=== PATIENT | male | born 1945 | race African-American/Black ===

== ENCOUNTER 2019-07-08 15:57 | Inpatient (IN) | payer OTHER ==
--- NOTE | 2019-07-08 16:05 | PDOC ---
Rapid Medical Evaluation Time Seen by Provider: 07/08/19 16:00 Medical Evaluation: 07/08/19 16:02 Pt c/o: worsening ble weakness x 3 months worse to rle, has not seen medical for the complaints, no fall, no back pain, no incontinence, + diabetes, htn Pt on brief exam: ambulatory but with noted limp to right side and + foot drop, BUE 5/5 strength, Pt ordered for: head ct Pt to proceed to the ED Discharge Disposition - Diagnosis Leg weakness, bilateral - Discharge Dispostion Condition at time of disposition: Stable - Referrals - Patient Instructions - Post Discharge Activity
--- NOTE | 2019-07-08 17:27 | PDOC ---
Attending Attestation - Resident Resident Name: Jeannie Schneider - ED Attending Attestation I have performed the following: I have examined & evaluated the patient, The case was reviewed & discussed with the resident, I agree w/resident's findings & plan, Exceptions are as noted - HPI HPI: 07/08/19 17:27 Mr. Gilmore is a 73-year-old male with a history of hypertension, hyperlipidemia, diabetes who presents emergency department due to feeling off balance. He was seen by Dr. Alvares who ordered a CTA as an outpatient which revealed left internal carotid occlusion Patient states that he has felt off balance for some time. He had an admission to [facility], unable to tell us what studies he had a what his diagnosis was. He subsequently had another admission to [facility] (similarly, we are unable to get any details about that admission). Patient notes instability with ambulation 07/08/19 17:28 - Physicial Exam PE: 07/08/19 17:26 GENERAL: The patient is in no acute distress. ENT: Ears normal, nares patent, oropharynx clear without exudates. Moist mucous membranes. NECK: Normal range of motion, supple LUNGS: Breath sounds equal, clear to auscultation bilaterally. No wheezes, and no crackles. HEART:Regular rate and rhythm, normal S1 and S2 without murmur, rub or gallop. ABDOMEN: Soft, nontender, normoactive bowel sounds. EXTREMITIES: Normal range of motion, no edema. NEUROLOGICAL: Cranial nerves II through XII grossly intact. Normal speech. A& Ox3, CN grossly intact, normal speech, sensation to light touch intact and grossly symmetric. RLE with 2/5 strength at hip and knee, 1/5 at ankle. SKIN: Warm, Dry, normal turgor, no rashes or lesions noted. 07/11/19 08:23 - Medical Decision Making 07/08/19 17:26 73-year-old male presenting to the emergency department with a complaint of right lower extremity weakness which she states is intermittent. Patient had a recent CT of the neck which reveals complete right sided carotid occlusion Sent to the ER for stroke work-up given right lower extremity weakness We will do: CT head noncontrast Labs EKG Chest x-ray We will plan to admit Aspirin Signed out to the overnight attending NIH Stroke Scale - Last Known Well Date/Time & Onset Date Last Known Well: 06/23/19 Time Last Known Well: 12:00 - Initial Evaluation Level of consciousness: Alert Ask patient the month and their age: Answers both correctly Ask patient to open & close eyes; make fist and let go: Obeys both correctly Best gaze (horizontal eye movement): Normal Visual field testing: No visual field loss Facial paresis (Show teeth/raise eyebrows/close eyes tight): Normal symmetrical movement Motor Function: Left Arm: Normal Motor Function: Right Arm: Normal (extends arm 90 (or 45) degrees for 10 seconds without drift Motor Function: Left Leg: Drift Motor Function: Right Leg: Normal (extends leg 30 degrees for 5 seconds without drift) Limb Ataxia: Present in one limb Sensory(Use pinprick test arms,legs,trunk,face/side to side): Normal Best language (Describe picture, name items, read sentences): No Aphasia Dysarthria (read several words): Normal articulation Extinction and Inattention: No abnormality - Total Score NIH Stroke Scale Score: 2 tPA Exclusion checklist 3-4.5h - Time Elapsed Date last known well: 06/23/19 Time last known well: 12:00 Elaspsed time: 17 Day(s) and 20 Hour(s) and 24 Minutes - Thrombolytic Therapy Candidate Is patient eligible for thrombolytic therapy: No - Exclusion Criteria 3-4.5 hr SBP greater than 185 or DBP greater than 110mmHg despite tx: No Recent IC/spinal surgery,head trauma or stroke<3mos.: No Hx IC hemorrhage, IC neoplasm, AV malformation or aneurysm: No Active internal bleeding: No Blding diathesis(low plt ct, inc PTT,INR>1.7 or use of NOAC): No Symptoms suggest subarachnoid hemorrhage: No CT demonstrates multilobar infarct(>1/3 cerebral hemiphere): No Arterial puncture at noncompressible site in previous 7 days: No Blood glucose concentration less than 50mg/dL (2.7mmol/L): No - Relative Exclusion Criteria 3-4.5 hr Life expectancy <1 yr or severe co-morbid illness: No : No Patient/family refused: No Rapid improvement: No Stroke severity too mild: No Recent acute CO (w/in previous 3 months): No Seizure at onset with postictal residual neuro impairments: No Major surgery or serious trauma w/in previous 14 days: No Recent GI or hemorrhage (w/in previous 21 days): No - Add'l Relative Exclusion 3-4.5 hr Age > 80: No Hx of both diabetes AND prior ischemic stroke: No Taking an oral anticoagulant regardless of INR: No NIHSS >25: No - Ineligibility reason(s) Reasons No tPA given: Outside of window - delayed arrival
[2019-07-08] MEDS ORDERED: SODIUM CHLORIDE 1,000 ML IV SCH (17:30)
--- NOTE | 2019-07-08 18:00 | PDOC ---
History of Present Illness - General Chief Complaint: Weakness Stated Complaint: LEG PAIN Time Seen by Provider: 07/08/19 16:00 - History of Present Illness Initial Comments: John Gilmore is a 73yo with a PMH of IDDM, HTN, CAD (possible [place]?) who presents with right leg weakness that has been present for "a while." The leg weakness has been present at least for weeks, but he is not sure how long. He says that the leg weakness is always present, but some times are worse than others. He reports that he has been feeling "bad" for months. He went to [facility] in spring, where he was admitted for several days. However, he is not sure what he was admitted for or what was done at that time. He was also admitted at [facility] at some point in summer, also for "feeling bad," and he is also not sure what was done during the admission. Mr Gilmore currently denies any chest pain, difficulty breathing, leg pain or numbness. He reports that he has been having trouble remembering anything, also for "a while" but is not sure when this started. Past History - Past Medical History Allergies/Adverse Reactions: Allergies Allergy/AdvReac Type Severity Reaction Status Date / Time No Known Allergies Allergy Verified 07/08/19 16:06 Home Medications: Ambulatory Orders Amlodipine Besylate 10 mg PO DAILY 07/08/19 Aspirin [Aspirin EC] 1 tab PO DAILY 07/08/19 Atorvastatin Ca [Lipitor] 80 mg PO HS 07/08/19 Clopidogrel Bisulfate [Clopidogrel] 1 tab PO DAILY 07/08/19 Gabapentin 300 mg PO BID 07/08/19 Insulin Glargine,Hum.rec.anlog [Lantus Solostar PEN -] 20 units PO HS 07/08/19 Losartan Potassium 1 tab PO DAILY 07/08/19 Metformin HCl [Glucophage] 500 mg PO BID 07/08/19 Cardiac Disorders: Yes COPD: No Diabetes: Yes HTN: Yes Hypercholesterolemia: Yes - Psycho Social/Smoking Cessation Hx Smoking History: Never smoked Review of Systems - Review of Systems Comments:: General: No fevers, no chills, no weight or appetite change, no malaise HEENT: No changes in vision, no changes in hearing, no congestion, no sore throat CV: No chest pain, no palpitations, no LE edema Pulm: No SOB, no cough, no wheezing GI: No nausea or vomiting, no change in bowel habits, no melena : No frequency, no urgency, no dysuria Musc: No back pain, no joint swelling, no recent injury Skin: No rash, no lesions, no erythema Endo: No excessive thirst, no heat/cold intolerance Heme: No unusual bruising or bleeding, no swollen glands Neuro: No syncope, no numbness/tingling. +RLE weakness, see HPI Vasc: No claudication Psych: No recent change in mood, no SI or HI *Physical Exam - Vital Signs Last Vital Signs Temp Pulse Resp BP Pulse Ox 98 F 95 H 18 166/90 99 07/08/19 15:59 07/08/19 15:59 07/08/19 15:59 07/08/19 15:59 07/08/19 15:59 - Physical Exam General: Comfortable, no acute distress HEENT: Atraumatic, PERRL, EOMI, MMM, voice normal, normal neck ROM Cards: RRR, no murmur appreciated Pulm: Comfortable on room air, clear to auscultation bilaterally Abd: Soft, nontender, nondistended Ext: Atraumatic. No LE edema. ROM intact. Vasc: Extremities WWP.WWP Skin: Normal color, no rashes or lesions Neuro: A&Ox3, CN grossly intact, normal speech, sensation to light touch intact and grossly symmetric. RLE with 2/5 strength at hip and knee, 1/5 at ankle. Psych: Mood appropriate to situation ED Treatment Course - LABORATORY CBC & Chemistry Diagram: 07/08/19 17:25 07/08/19 17:25 - RADIOLOGY Radiology Studies Ordered: Category Date Time Status HEAD CT (STROKE) [CT] Stat CT Scan 07/08/19 17:22 Ordered Medical Decision Making - Medical Decision Making 07/08/19 17:54 John Gilmore is a 73yo with a PMH of IDDM, HTN, CAD (possible [place]?) who presents with right leg weakness that has been present for "a while." - RLE weakness appreciated on exam. Possible stroke, but symptoms are not new today - Stroke workup - Will most likely need evaluation for additional testing, possible MRI 07/08/19 18:37 - CT head completed, read pending - EKG w/ NSR, HR 77, normal axis, normal intervals. T-wave inversions and q- wave in V2; c/w previous infarct. 07/08/19 18:48 - CT head with multiple infarcts (left frontal, left parietal, left basal ganglia) of indeterminate age - Discussed w/ ED team. Given no upper extremity weakness, will CT lumbar spine to evaluate for spinal injury. 07/08/19 22:08 - Lumbar CT w/ L3-L4 right herniation - Sign out given to Dr Stearns. Will admit to Dr Muller' service on stroke floor Discussed with Steve Nino and Yaima Schneider PGY2 Discharge - Discharge Information Problems reviewed: Yes Clinical Impression/Diagnosis: Leg weakness, bilateral Condition: Stable - Admission Yes - Follow up/Referral - Patient Discharge Instructions - Post Discharge Activity
[2019-07-08 18:44] LABS: BASO % 0.7 % (0-2.0); EOS % 3.8 % (0-4.5); HEMATOCRIT 40.7 % (35.4-49); HEMOGLOBIN 13.7 GM/dL (11.7-16.9); LYMPH % 34.2 % (8-40); MCHC 33.7 g/dl (32.0-35.9); MEAN CELL VOLUME 80.2 fl (80-96); MONO % 6.3 % (3.8-10.2); PLATELET COUNT 229 K/MM3 (134-434); RBC 5.07 M/mm3 (4.00-5.60); RDW 14.4 % (11.9-15.9); WHITE BLOOD COUNT 6.3 K/mm3 (4.0-10.0)
[2019-07-08 18:59] LABS: INR 0.93 (0.83-1.09)
[2019-07-08 19:01] LABS: ACTIVATED PTT 36.1 SECONDS (25.2-36.5)
[2019-07-08 19:16] LABS: ALBUMIN 3.8 g/dl (3.4-5.0); BILIRUBIN,TOTAL 0.5 mg/dL (0.2-1); BLOOD UREA NITROGEN 12.9 mg/dL (7-18); CALCIUM 9.4 mg/dL (8.5-10.1); CREATININE 0.9 mg/dL (0.55-1.3); POTASSIUM 3.8 mmol/L (3.5-5.1); TOT PROT 7.4 g/dl (6.4-8.2)
--- NOTE | 2019-07-08 23:36 | HP ---
CHIEF COMPLAINT: RLE numbness/weakness PCP: denies HISTORY OF PRESENT ILLNESS: This is a 73 y/o M with a PMHx HTN, HLD, IDDM, CAD ( possible CT? given pt on ASA/Plavix), and CTA (07/04/19 showing Lt ICA occlusion ), presenting with RLE weakness, numbness, tingling X 5-7 days. Pt is unreliable historian given hx of short term memory loss per patient. He has been having memory difficulties like losing his keys, or forgetting if he has a PCP, and how his diet is. He lives with his . He has been having trouble ambulating and states he has to "drag his leg sometimes". Pt also c/o anosmia for an undetermined amt of time that he has not seen a physician for. Pt states he has not had his eyes/feet checked in the past. He denies cp, sob, PATINO, fever, chills, n/v, bowel/bladder complaints, poor appetite. ER course was notable for: (1) CT head- likely negative for acute infarcts with suspicion for chronic infarcts in Lt cerebrum (2) CT lumbar spine- L3-L4 foraminal disk herniation (3) Glu- 196, trop 0.09, EKG NSR normal QTC Social History: Smoking: denies Alcohol: denies Drugs: denies Allergies No Known Allergies Allergy (Verified 07/08/19 16:06) HOME MEDICATIONS: Home Medications Medication Instructions Recorded Amlodipine Besylate 10 mg PO DAILY 07/08/19 Aspirin [Aspirin EC] 1 tab PO DAILY 07/08/19 Atorvastatin Ca [Lipitor] 80 mg PO HS 07/08/19 Clopidogrel Bisulfate [Clopidogrel] 1 tab PO DAILY 07/08/19 Gabapentin 300 mg PO BID 07/08/19 Insulin Glargine,Hum.rec.anlog 20 units PO HS 07/08/19 [Lantus Solostar PEN -] Losartan Potassium 1 tab PO DAILY 07/08/19 Metformin HCl [Glucophage] 500 mg PO BID 07/08/19 REVIEW OF SYSTEMS negative except in HPI PHYSICAL EXAMINATION Vital Signs - 24 hr 07/08/19 07/08/19 07/08/19 15:59 19:07 23:06 Temperature 98 F 97.2 F L Pulse Rate 95 H Pulse Rate [ 68 68 Radial] Respiratory 18 18 Rate Blood Pressure 166/90 Blood Pressure 163/92 180/97 H [Right Arm] O2 Sat by Pulse 99 95 97 Oximetry (%) GENERAL: Awake, AO X 2 (self and place but not time) HEAD: Normal with no signs of trauma. EYES: Pupils equal, round and reactive to light, extraocular movements intact, sclera anicteric, conjunctiva clear. No lid lag. NECK: No carotid bruit appreciated LUNGS: Breath sounds equal, clear to auscultation bilaterally. No wheezes, and no crackles. No accessory muscle use. HEART: Regular rate and rhythm, normal S1 and S2 without murmur, rub or gallop. ABDOMEN: Soft, nontender, not distended, normoactive bowel sounds, no guarding, no rebound, no masses. MUSCULOSKELETAL: Normal ROM in upper extremities with sensation intact, LLE normal sensation and ROM 5/5, RLE 4/5 strength above knee and 3/5 below knee, reduced sensation of RLE below knee, Dorsiflexion and plantarflexion reduced 3/ 5 on RLE. Straight leg raise negative UPPER EXTREMITIES: 2+ pulses, warm, well-perfused. No cyanosis. No clubbing. No peripheral edema. LOWER EXTREMITIES: 1+ pulses b/l, cool to touch, No calf tenderness. No peripheral edema. Areflexia on RLE patella, LLE 2+ reflexes NEUROLOGICAL: Cranial nerves II-XII intact. Normal speech. Normal gait. PSYCHIATRIC: memory difficulty SKIN: Warm, dry, normal turgor, no rashes or lesions noted Laboratory Results - last 24 hr ASSESSMENT/PLAN: This is a 73 y/o M with a PMHx HTN, HLD, IDDM, CAD (possible CT? given pt on ASA /Plavix), and CTA (07/04/19 showing Lt ICA occlusion), presenting with RLE weakness, numbness, tingling X 5-7 days. #R/O CVA - CT head showing ? chronic/subacute Left frontal and left parietal cortical/ subcortical infarcts were noted of indeterminate age on the basis of exam. with small indeterminate left basal ganglia infarct - unknown if related to CTA finding of LT ICA occlusion at this time - CT of lumbar spine- L3/L4 disc herniation- likely cause of areflexia of patella and lower extremity symptoms. - Neuro consulted (Dr. Corbett) - Dr. Francesconi consulted as he told pt to come to ED after seeing results of CTA. - baseline memory difficulties per patient - ordered B12/Folate/RPR/TSH to eval for early onset dementia - PT eval - speech and swallow eval npo until then - fall risk/aspiration/seizure precautions - c/w ASA 81mg, crestor 20HS, plavix #Tropinemia - probably false positive from cerebral infarcts - Pt has trop 0.09 - rpt trop 0.09 - EKG w/ NSR, HR 77, normal axis, normal intervals. #HTN - BP 180/97 in ED, - c/w losartan, norvasc, ? why pt not on BB given hx of CT 10yrs ago - would suggest him be on metoprolol but he follows up with cardio so will await recommendations. IDDM - Hold oral antihyperglycemics at this time - glu- 196 today and pt did not seem educated on proper diabetic diet - dietary consult - ISS TIDAC - may be related to diabetic neuropathy, pt has not had appropriate o/p care - A1C - Gabapentin 300 BID for neuropathy #HLD - ASCVD risk >7.5% -> started crestor 20HS - call placed to pharmacy confirming he hasnt been taking 80mg lipitor HS - lipid panel LDL-76 Visit type - Emergency Visit Emergency Visit: Yes ED Registration Date: 07/08/19 Care time: The patient presented to the Emergency Department on the above date and was hospitalized for further evaluation of their emergent condition. - New Patient This patient is new to me today: Yes Date on this admission: 07/09/19 - Critical Care Critical Care patient: No ATTENDING PHYSICIAN STATEMENT I saw and evaluated the patient. I reviewed the resident's note and discussed the case with the resident. I agree with the resident's findings and plan as documented. SUBJECTIVE: OBJECTIVE: ASSESSMENT AND PLAN:
--- NOTE | 2019-07-08 23:51 | PN ---
Teaching Attending Note Name of Resident: Darin Marie ATTENDING PHYSICIAN STATEMENT I saw and evaluated the patient. I reviewed the resident's note and discussed the case with the resident. I agree with the resident's findings and plan as documented. SUBJECTIVE: 73yo with a PMH of IDDM, HTN, CAD, presents complaining of right leg weakness and numbness for about 2 weeks. Patient reports that he was still able to ambulate normally. Denied any headaches, dizziness, or other weakness anywhere else on his body.He reports recent admission at [facility].Patient reports history of arthritis in his right and left lower extremities. He states that his symptoms may be secondary to his arthritis. OBJECTIVE: Last Vital Signs Temp Pulse Resp BP Pulse Ox 97.2 F L 68 18 180/97 H 97 07/08/19 23:06 07/08/19 23:06 07/08/19 22:42 07/08/19 23:06 07/08/19 23:06 GENERAL: Well developed, well nourished. Awake and alert. No acute distress. HEENT: Normocephalic, atraumatic. PERRLA, EOMI. No conjunctival pallor. Sclera are non- icteric. Moist mucous membranes. Oropharynx is clear. NECK: Supple. Full ROM. No JVD. Carotid pulses 2+ and symmetric, without bruits. No thyromegaly. No lymphadenopathy. CARDIOVASCULAR: Regular rate and rhythm. No murmurs, rubs, or gallops. Distal pulses are 2+ and symmetric. PULMONARY: No evidence of respiratory distress. Lungs clear to auscultation bilaterally. No wheezing, rales or rhonchi. ABDOMINAL: Soft. Non-tender. Non-distended. No rebound or guarding. No organomegaly. Normoactive bowel sounds. MUSCULOSKELETAL Normal range of motion at all joints. No bony deformities or tenderness. No CVA tenderness. EXTREMITIES: No cyanosis. No clubbing. No edema. No calf tenderness. SKIN: Warm and dry. Normal capillary refill. No rashes. No jaundice. NEUROLOGICAL: Alert, awake, appropriate. Cranial nerves 2-12 intact. No deficits to light touch and temperature in face, upper extremities and lower extremities. No motor deficits in the in face, upper extremities and lower extremities. Normoreflexic in the upper and lower extremities. Normal speech. Diminished sensation to right leg PSYCHIATRIC: Cooperative. Good eye contact. Appropriate mood and affect. Abnormal Lab Results 07/08/19 17:25 Anion Gap 5 L Random Glucose 196 H AST 14 L Alkaline Phosphatase 132 H CK-MB (CK-2) 4.9 H Troponin I 0.09 H HDL Cholesterol [address] was reviewed. Left frontal and left parietal cortical/subcortical infarcts were noted of indeterminate age on the basis of exam. There was also a small indeterminate left basal ganglia infarct. CT of his lumbar spine was performed and showed right L3-L4 foraminal disc herniation, multilevel degenerative disc and facet joint changes, partial imaging of a nonspecific subcutaneous nodule within left paramedian aspect of lower thoracic region at T10 level ASSESSMENT AND PLAN: Right lower extremity weakness and diminished sensationshould rule out CVA. Differential diagnosis includes osteoarthritis and right knee as well as possible radiculopathy from L3-L4 foraminal disc herniation as evidenced on CT of lumbar spine Admit to telemetry Neurology evaluation Neurochecks every 4 hours Bedrest and fall precautions Aspirin Statin N.p.o. Physical therapy evaluation Speech and swallow eval Heparin subcu for DVT prophylaxis
[2019-07-09] MEDS ORDERED: amLODIPine BESYLATE 10 MG TABLET (FP) PO ONE (00:41)
[2019-07-09] MEDS ORDERED: amLODIPine BESYLATE 5 MG TABLET (FP) ONE (02:56)
[2019-07-09] MEDS ORDERED: chlordiazePOXIDE HCL 25 MG CAPSULE PO PRN (03:30)
[2019-07-09] MEDS ORDERED: LOSARTAN POTASSIUM 50 MG TABLET (FP) PO ONE (05:46)
[2019-07-09] MEDS: INSULIN SLIDING SCALE (NOVOLOG) 1 VIAL SQ SCH ×3 (07:01→18:07)
[2019-07-09 07:42] LABS: ALBUMIN 3.6 g/dl (3.4-5.0); BILIRUBIN,TOTAL 0.7 mg/dL (0.2-1); CALCIUM 8.9 mg/dL (8.5-10.1); CREATININE 0.9 mg/dL (0.55-1.3); MAGNESIUM 2.1 mg/dL (1.8-2.4); PHOSPHOROUS 3.2 mg/dL (2.5-4.9); POTASSIUM 3.5 mmol/L (3.5-5.1); TOT PROT 6.9 g/dl (6.4-8.2)
[2019-07-09] MEDS ORDERED: PT OWN MED DRAWER 7, Y5N ONE (09:56)
[2019-07-09] MEDS: CLOPIDOGREL BISULFATE 75 MG TABLET (FP) PO SCH (09:57)
[2019-07-09] MEDS: ENOXAPARIN NA (PORCINE) 40 MG/0.4 ML DISP.SYRIN SQ SCH (09:57)
[2019-07-09] MEDS: ASPIRIN COATED 81 MG TABLET.EC PO SCH (09:57)
[2019-07-09] MEDS: amLODIPine BESYLATE 10 MG TABLET (FP) PO SCH (09:57)
[2019-07-09] MEDS: GABAPENTIN 300 MG CAPSULE (FP) PO SCH ×2 (09:57→23:06)
[2019-07-09] MEDS ORDERED: PATIENT'S OWN MEDICATION (NON-FORMULARY) (Losartan Potassium [Losartan Potassium] 1 TAB) PO SCH (10:00)
[2019-07-09] MEDS ORDERED: ASPIRIN COATED 81 MG TABLET.EC PO SCH (10:00)
[2019-07-09] MEDS ORDERED: amLODIPine BESYLATE 10 MG TABLET (FP) PO SCH (10:00)
--- NOTE | 2019-07-09 10:41 | EKG ---
Test Reason : Blood Pressure : / mmHG Vent. Rate : 077 BPM Atrial Rate : 077 BPM P-R Int : 192 ms QRS Dur : 088 ms QT Int : 392 ms P-R-T Axes : 068 000 042 degrees QTc Int : 443 ms NORMAL SINUS RHYTHM SEPTAL INFARCT , AGE UNDETERMINED ABNORMAL ECG NO PREVIOUS ECGS AVAILABLE Confirmed by JOHN JEFFERS MD ([id number]) on 07/09/2019 10:40:57 AM Referred By: Confirmed By:JOHN JEFFERS MD
--- NOTE | 2019-07-09 11:10 | CONSULT ---
Admitting History and Physical - Primary Care Physician PCP: Dustin Joe - Admission History of Present Illness: Per EMR- 73 y/o M with a PMHx HTN, HLD, IDDM, CAD (possible [place]? given pt on ASA/Plavix) , and CTA (07/04/19 showing Lt ICA occlusion), presenting with RLE weakness, numbness, tingling X 5-7 days. Pt is unreliable historian given hx of short term memory loss per patient. He has been having memory difficulties like losing his keys, or forgetting if he has a PCP, and how his diet is. He lives with his . He has been having trouble ambulating and states he has to "drag his leg sometimes". Pt also c/o anosmia for an undetermined amt of time that he has not seen a physician for. Pt states he has not had his eyes/feet checked in the past. He denies cp, sob, PATINO, fever, chills, n/v, bowel/bladder complaints, poor appetite. History Source: Patient Limitations to Obtaining History: No Limitations - Smoking History Smoking history: Never smoked History - Admission Reason For Visit: WEAKENSS OF BOTH LOWER EXTREMITIES - Diagnostics X-ray: Report Reviewed CT Scan: Report Reviewed (- CT head showing ? chronic/subacute Left frontal and left parietal cortical/subcortical infarcts were noted of indeterminate age on the basis of exam. with small indeterminate left basal ganglia infarct - unknown if related to CTA finding of LT ICA occlusion at this time - CT of lumbar spine- L3/L4 disc herniation- likely cause of areflexia of patella and lower extremity symptoms) Other: Report Reviewed (carotid u/s noted) - General Mental Status: Alert and Oriented, Awake and Alert, Able to Follow Commands Attention: Intact Ability to Follow Directions: Good Head/Neck Control: WFL - Hearing Hearing: Functional Speech Evaluation - Communication Primary Language: PAKISTANI Communication: Yes: Within Normal Limits Oral Expression Ability: Yes: No Impairment - Speech Production Able to Make Needs Known: Yes: WNL Intelligibility: Yes: WNL - Speech Characteristics Voice Loudness: Normal Voice Pitch: Yes: Normal Speech Pattern: Normal Speech Clarity: < 100% Nasal Resonance: Normal Articulation: Yes: Precise - Language/Auditory Comprehension Follows: Yes: 2 Stage Simple Commands Observation: Able to respond to yes/no queries: Yes, Comprehends Conversational Speech: Yes - Language/Verbal Expression Able to Respond to Simple Queries: Yes: WNL Able to Communicate Wants and Needs: Yes: WNL Functional Communication Status: Yes: WNL - Swallow Evaluation/Bedside Assessment Current Nutritional Intake: NPO Oral Secretions: Yes: WFL Dentition: Yes: Adequate Facial Symmetry at Rest: Facial Droop Right (slight?) Facial Symmetry on Retraction: Symmetrical Facial Movement: Controlled Sensation: Normal Against Resistance Opening: Normal Against Resistance Closing: Normal Pucker Lips: Normal Smile: Normal Lingual Movement: Normal, Symmetric Lingual Speed of Movement: Normal Lingual Movement Strgth Against Opposition: Normal Lingual Movement Characteristics: Normal Velopharyngeal Movement: Normal Laryngeal Elevation: WFL Laryngeal Movement: Able to Palpate Rate of Intake: WFL Bolus Size: WFL Labial Seal: WFL Chewing: WFL Oral Prep Time: WFL A-P Transit: WFL Timing of Swallow: WFL Coughing/Throat Clear: No Change in Voice: No Recommendations - Speech Evaluation, Impression/Plan Impression: Sppech,language, swallowing intact - Dysphagia Impressions/Plan Swallowing Skills: WF Dysphagia Impressions: No Impairment *Silent aspiration: cannot be R/O at bedside Recommendations: Neuro Consult (pending) - Recommendations Diet Consistency: Regular Medication Administration: Whole with water Liquids: Thin Liquids
[2019-07-09 11:44] VITALS: BMI 28.7
--- NOTE | 2019-07-09 12:16 | CON.CARD ---
Consult Consult Specialty:: Cardiology Referred by:: Medicine Reason for Consultation:: dizziness - History of Present Illness Chief Complaint: leg pain, weakness, dizziness History of Present Illness: 73M h/o HTN, HLD, DM, CAD p/w dizziness, weakness in RLE, feeling unsteady. Sees Dr. Alvares for cardio, had outpatient CTA with lt ICA occlusion last week, then endorsed dizziness, off balance feeling, weakness. No chest pain, palps, dyspnea, edema, syncope. - Smoking History Smoking history: Never smoked Home Medications - Allergies Allergies/Adverse Reactions: Allergies Allergy/AdvReac Type Severity Reaction Status Date / Time No Known Allergies Allergy Verified 07/08/19 16:06 - Home Medications Home Medications: Ambulatory Orders Amlodipine Besylate 10 mg PO DAILY 07/08/19 Aspirin [Aspirin EC] 1 tab PO DAILY 07/08/19 Atorvastatin Ca [Lipitor] 80 mg PO HS 07/08/19 Clopidogrel Bisulfate [Clopidogrel] 1 tab PO DAILY 07/08/19 Gabapentin 300 mg PO BID 07/08/19 Insulin Glargine,Hum.rec.anlog [Lantus Solostar PEN -] 20 units PO HS 07/08/19 Losartan Potassium 1 tab PO DAILY 07/08/19 Metformin HCl [Glucophage] 500 mg PO BID 07/08/19 Family Medical History Family History: Unremarkable Review of Systems - Review of Systems Constitutional: reports: Weakness Eyes: reports: No Symptoms HENT: reports: No Symptoms Neck: reports: No Symptoms Cardiovascular: reports: No Symptoms Respiratory: reports: No Symptoms Gastrointestinal: reports: No Symptoms Genitourinary: reports: No Symptoms Musculoskeletal: reports: No Symptoms Integumentary: reports: No Symptoms Neurological: reports: No Symptoms Endocrine: reports: No Symptoms Hematology/Lymphatic: reports: No Symptoms Psychiatric: reports: No Symptoms Vital Signs: Vital Signs Temperature 97.9 F 07/09/19 06:30 Pulse Rate 68 07/09/19 06:30 Respiratory Rate 20 07/09/19 06:30 Blood Pressure 155/97 07/09/19 06:30 O2 Sat by Pulse Oximetry (%) 99 07/09/19 05:19 Constitutional: Yes: No Distress, Calm Eyes: Yes: Conjunctiva Clear, EOM Intact HENT: Yes: Atraumatic, Normocephalic Neck: Yes: Supple, Trachea Midline Respiratory: Yes: Regular, CTA Bilaterally Gastrointestinal: Yes: Normal Bowel Sounds, Soft Cardiovascular: Yes: Regular Rate and Rhythm JVD: No Heart Sounds: Yes: S1, S2 Extremities: No: Cold Edema: No Integumentary: No: Jaundice Neurological: Yes: Alert, Oriented Psychiatric: No: Agitated - Other Data Labs, Other Data: CBC, BMP 07/08/19 17:25 07/09/19 06:00 INR, PTT INR 0.93 (0.83-1.09) 07/08/19 17:25 Troponin, BNP 07/08/19 12 17:25 01:45 Troponin I 0.09 H 0.09 H Troponin, BNP 07/08/19 07/09/19 17:25 01:45 Troponin I 0.09 H 0.09 H Assessment/Plan EKG: sinus, nl intervals, no ischemic changes CTA neck: complete occlusion of L ICA dizziness, weakness, RLE pain - neuro eval pending - no acute stroke on CT head, +chronic infarcts - echo pending carotid stenosis - occluded LICA on CTA neck last week - +chronic infarcts on CT head, neuro consult pending - cont aspirin, plavix, statin elevated trop - indeterminate range, flat trend. no ischemic change on EKG, unlikely ACS - echo pending HTN - not well controlled, per patient this is chronic - monitor pt after receiving home meds, likely will need additional agent DM - manage per primary HLD - cont statin
--- NOTE | 2019-07-09 14:46 | ECHO ---
Name: CHAMBERS, VERGIL Exam:Adult Echocardiogram Study Date: 07/09/2019 10:38 AM Age: 73 yrs Height: 68 in Weight: 185 lb BSA: 2.0 m2 MMode/2D Measurements & Calculations IVSd: 1.5 cm Ao root diam: 3.0 cm LVIDd: 3.1 cm LA dimension: 2.7 cm LVIDs: 2.3 cm LVPWd: 1.2 cm LVPWs: 1.5 cm EDV(Teich): 38.3 ml ESV(Teich): 18.9 ml LVOT diam: 1.8 cm Doppler Measurements & Calculations MV E max shady: 52.8 cm/sec Ao V2 max: 116.7 cm/sec MV A max shady: 80.5 cm/sec Ao max P.5 mmHg MV E/A: 0.66 MV dec time: 0.19 sec FELICITAS(V,D): 2.4 cm2 LV V1 max P.0 mmHg TR max shady: 228.5 cm/sec LV V1 max: 112.0 cm/sec TR max P.1 mmHg PA V2 max: 97.1 cm/sec Med Peak E' Shady: 4.3 cm/sec PA max P.8 mmHg Med E/e': 12.3 Lat Peak E' Shady: 5.2 cm/sec Lat E/e': 10.2 Procedure A two-dimensional transthoracic echocardiogram with color flow and Doppler was performed. Left Ventricle There is moderate concentric left ventricular hypertrophy. The left ventricular ejection fraction is normal. E/A reversal consistent with but not diagnostic of poor LV compliance. The left ventricular wall juana on is normal. Right Ventricle The right ventricle is not well visualized. Atria Normal left and right atrial size and function. Mitral Valve There is mild mitral valve thickening. There is no mitral valve stenosis. There is trace to mild mitr al regurgitation. Tricuspid Valve There is mild tricuspid valve thickening. There is no tricuspid stenosis. There is mild to moderate t ricuspid regurgitation. Right ventricular systolic pressure is normal. Aortic Valve The aortic valve is normal in structure and function. No hemodynamically significant valvular aortic stenosis. No aortic regurgitation is present. Pulmonic Valve The pulmonic valve is not well visualized. Great Vessels The aortic root is normal size. Pericardium/Pleura There is a mild pericardial effusion. Interpretation Summary There is moderate concentric left ventricular hypertrophy. The left ventricular ejection fraction is normal. The left ventricular wall motion is normal. E/A reversal consistent with but not diagnostic of poor LV compliance The right ventricle is not well visualized. There is trace to mild mitral regurgitation. There is a mild pericardial effusion. There is mild to moderate tricuspid regurgitation. Right ventricular systolic pressure is normal. MD Donavan Lopez 07/09/2019 02:45 PM
--- NOTE | 2019-07-09 18:07 | PN ---
Progress Note (short form) - Note Progress Note: Hospitalist Medicine W/ complaint recent RLE weakness which brought him in. States that he "knows that he had a stroke." Vitals 07/09/19 14:26 Temperature 97.8 F Pulse Rate 70 Respiratory 20 Rate Blood Pressure 151/87 Physical Exam general: pleasant. in NAD HEENT: NCAT neck: supple cardio: S1, S2, RRR. no r/m/g pulm: CTA b/l abdomen: nontender, nondistended, obese. LE: 2+ pulses. 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 2/5 motor strength RLE. 5/5 LLE. sensation intact. + mild pronator drift UE. no dysmetria Laboratory Tests 07/08/19 07/09/19 07/09/19 17:25 06:00 06:33 WBC 6.3 RBC 5.07 Hgb 13.7 Hct 40.7 MCV 80.2 MCH 27.0 MCHC 33.7 RDW 14.4 Plt Count 229 Sodium 138 Potassium 3.5 Chloride 104 Carbon Dioxide 28 Anion Gap 7 L BUN 11.0 Creatinine 0.9 POC Glucometer 206 Random Glucose 212 H Vitamin B12 1043 H Serum Folate 9 TSH 5.02 H Free T4 1.03 07/09/19 07/09/19 12:42 18:05 WBC RBC Hgb Hct MCV MCH MCHC RDW Plt Count Sodium Potassium Chloride Carbon Dioxide Anion Gap BUN Creatinine POC Glucometer 232 282 Random Glucose Vitamin B12 Serum Folate TSH Free T4 Imaging 07/08/19: Head CT: left frontal and parietal cortical/ subcortical infarcts are noted of indeterminate age on basis of current exam. also a small indeterminate left basal ganglia infarct. 07/08/19: Lumbar CT: right L3-L4 foraminal disc herniation. multilevel degenerative disc and facet joint changes. there is partial imaging of a nonspecific subcutaneous nodule in the left paramedian aspect of the lower thoracic region at the T10 level. 07/09/19: Carotid sono: moderate atherosclerotic dz with abnormal flow with the proximal L ICA which is consistent with the distal occlusion which have been identified on a recent CTA examination not new finding 07/09/19: ECHO: moderate concentric LVH, LVEF normal, trace to mild MR, mild pericardial effusion, mild to mod TR, RVSP normal ASSESSMENT/PLAN: This is a 73 y/o M with a PMHx HTN, HLD, IDDM, CAD (possible OR? given pt on ASA /Plavix), and CTA (07/04/19 showing Lt ICA occlusion), presenting with RLE weakness, numbness, tingling X 5-7 days. #r/o CVA -ECHO noted -carotid doppler result noted; not new finding -c/w plavix, asa, crestor -neuro consult: Dr. Corbett -PT eval #Tropinemia -asymptomatic, flat trend -Cardio: Dr. Guzman -EKG w/ NSR, HR 77, nl axis, nl intervals #HTN - c/w losartan, norvasc for now -will likely need additional agent IDDM - Hold oral antihyperglycemics at this time - ISS TIDAC - f/u A1C - c/w Gabapentin 300 BID for neuropathy #HLD - c/w crestor #F/E/N no need for IVF at this time continue to follow lytes diabetic/na controlled diet #PPX DVT: on lovenox #Dispo admitted to tele <Kristina Ojeda - Last Filed: 07/09/19 18:28> - Note Progress Note: Seen and examined; please see resident note for further historical information. I personally verified all [place] historical information and exam findings. Personally interpreted all imaging and diagnostics and reviewed appropriate consults. I reviewed all labs and vital signs as per resident note and EMR as documented. I agree with the above assessment and plan unless supplemented by myself in the following. Seen and examined, overall the patient remains stable. 10 item review of systems completed and is negative aside from the history of present illness.Carotid ultrasound preliminarily shows occlusion, but this was known prior. Will discuss with neuro and vascular if needed. We will continue to hold anti-hyperglycemics as well as continue with gabapentin for the diabetic neuropathy which also could be contributing to part of his presenting symptoms. Furthermore, we will monitor the patient on the floor on the medicine service with aspirin, statin, and keep him on DVT prophylaxis with Lovenox VS, labs, imaging reviewed NAD, AAO, resting comfortably in bed. RRR s1/2 no mgr Normal muscle tone, moves all 5 extremities with normal apparent strength Neck is supple, trachea midline, no masoud LN Lungs CTAB with sym expansion NT ND +BS no masoud organomegaly CN2-12 wnl; no FND NC AT EOMI PERRLA Normal mood, appropriate behavior, euthymic affect No skin breakdown or rashes noted A/P: Patient presents for right lower extremity weakness is alongside parasthesias and was admitted overnight to r/o CVA. Will also consider myelopathy, OA, etc. Problems include: Right lower extremity weakness and diminished sensationshould rule out CVA. Differential diagnosis includes osteoarthritis and right knee as well as possible radiculopathy from L3-L4 foraminal disc herniation as evidenced on CT of lumbar spine Admit to telemetry Neurology evaluation Neurochecks every 4 hours Bedrest and fall precautions Aspirin Statin N.p.o. Physical therapy evaluation Speech and swallow eval Heparin subcu for DVT prophylaxis <Dustin Joe - Last Filed: 07/11/19 12:55>
--- NOTE | 2019-07-09 19:05 | CONSULT ---
Consult - text type - Consultation Consultation Note: NEUROLOGY CONSULTATION is greatly appreciated: Events and neurimaging reviewed. Patient examined. 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 Maintained on: Amlodipine; Aspirin 81; Atorvastatin; Clopidogrel; Gabapentin 300 mg PO BID; insulins; Losartan; and Metformin 500 mg PO BID 07/08/19. Recent evaluation of TIA/ CVA apparently revealed proximal Left ICA occlusion/ stenosis. Chronic, episodic LBP with occ radiation into left buttock. Chronic "burning" over left lateral thigh. "Just before Thanksgiving" patient describes gradual onset of weakness in the right leg, especially distally. Increasing gait dysfunction. CT of brain (C-) reviewed: Scattered small infarcts in the left MCA territory CT of LS spine: Moderate DJD with bulging disk at L5S1. OBI: No bruits. Cor Reg. NEURO: Awake, alert. MS/Speech: Normal CN II-XII: Full guevara and EOM's. Mild right lower facial asymmetry. Gag normal. Motor: Min Right drift. Sl decreased NBA. R Hip flexion 4-/5; R knee extension 4+/5; R ankle DF/Inv/ ever 2/5. Ankle PF 4/5. Normal reflexes including AJ's. Toes downgoing. Coord: No FTN dystaxia Sensory: Normal Gait: Dificulty lifing right leg off the bed. Stands with assistance. Right circumduction. IMP: Left cerebral dysfunction especially involving the Anterior Cerebral Artery distribution (But could also be MCA involving the internal capsule.) Most likely on a vascular basis (CVA's). Cannot exclude some contribution from Right L5 radiculopathy. Left Meralgia paresthetica. SUGGEST: MRI and MR Angio of the intracranial circulation. Physiatry consultaion and PT as directed. Cardiology consultation (telemetry, echocardiogram) to eval for source of cardiogenic embolism (as this would require full anticoagulation). Review recent history, eval and imaging. Continue plavix and ASA (81) for now. Thank you very much, Koko Corbett MD
[2019-07-09] MEDS ORDERED: ROSUVASTATIN CA 20 MG TABLET (FP) PO SCH (22:00)
[2019-07-09] MEDS: ROSUVASTATIN CA 10 MG TABLET (FP) PO SCH (23:06)
[2019-07-10] MEDS: INSULIN SLIDING SCALE (NOVOLOG) 1 VIAL SQ SCH ×3 (06:53→18:28)
[2019-07-10 07:24] LABS: BASO % 0.6 % (0-2.0); EOS % 4.1 % (0-4.5); HEMATOCRIT 39.6 % (35.4-49); HEMOGLOBIN 13.3 GM/dL (11.7-16.9); MCH 26.7 pg (25.7-33.7); MCHC 33.6 g/dl (32.0-35.9); MEAN CELL VOLUME 79.5 fl (80-96); MONO % 7.7 % (3.8-10.2); NEUT % 52.6 % (42.8-82.8); PLATELET COUNT 212 K/MM3 (134-434); RBC 4.98 M/mm3 (4.00-5.60); RDW 14.1 % (11.9-15.9); WHITE BLOOD COUNT 5.6 K/mm3 (4.0-10.0)
[2019-07-10 07:42] LABS: BLOOD UREA NITROGEN 10.8 mg/dL (7-18); CALCIUM 9.4 mg/dL (8.5-10.1); CREATININE 0.9 mg/dL (0.55-1.3); MAGNESIUM 2.2 mg/dL (1.8-2.4); PHOSPHOROUS 3.5 mg/dL (2.5-4.9); POTASSIUM 3.8 mmol/L (3.5-5.1)
[2019-07-10] MEDS ORDERED: LOSARTAN POTASSIUM 50 MG TABLET (FP) PO SCH (10:00)
[2019-07-10] MEDS: GABAPENTIN 300 MG CAPSULE (FP) PO SCH ×2 (10:22→21:13)
[2019-07-10] MEDS: ASPIRIN COATED 81 MG TABLET.EC PO SCH (10:23)
[2019-07-10] MEDS: ENOXAPARIN NA (PORCINE) 40 MG/0.4 ML DISP.SYRIN SQ SCH (10:24)
[2019-07-10] MEDS: amLODIPine BESYLATE 10 MG TABLET (FP) PO SCH (10:24)
[2019-07-10] MEDS: CLOPIDOGREL BISULFATE 75 MG TABLET (FP) PO SCH (10:25)
--- NOTE | 2019-07-10 10:32 | PN ---
Progress Note (short form) - Note Progress Note: s: no cp sob palps dizzy Current Medications Generic Name Dose Route Start Last Admin Trade Name Jessica PRN Reason Stop Dose Admin Amlodipine Besylate 10 mg 07/09/19 10:00 07/10/19 10:24 Norvasc - PO 10 mg DAILY TAMIKO Administration Aspirin 81 mg 07/09/19 10:00 07/10/19 10:23 Ecotrin - PO 81 mg DAILY TAMIKO Administration Clopidogrel Bisulfate 75 mg 07/09/19 10:00 07/10/19 10:25 Plavix - PO 75 mg DAILY TAMIKO Administration Enoxaparin Sodium 40 mg 07/09/19 10:00 07/10/19 10:24 Lovenox - SQ 40 mg DAILY TAMIKO Administration Gabapentin 300 mg 07/09/19 10:00 07/10/19 10:22 Neurontin - PO 300 mg BID TAMIKO Administration Insulin Aspart 1 vial 07/09/19 07:00 07/10/19 06:53 Novolog Vial Sliding Scale - SQ 6 units TIDAC TAMIKO Administration Protocol Losartan Potassium 100 mg 07/10/19 10:00 07/10/19 10:24 Cozaar - PO 100 mg DAILY TAMIKO Administration Rosuvastatin Calcium 10 mg 07/09/19 22:00 07/09/19 23:06 Crestor - PO 10 mg HS TAMIKO Administration Vital Signs Period Temp Pulse Resp BP Sys/Aguilar Pulse Ox Last 24 Hr 97.3 F-97.8 F 70-81 18-20 134-154/83-95 94 Constitutional: Yes: No Distress, Calm Eyes: Yes: Conjunctiva Clear Neck: Yes: Supple, Trachea Midline Respiratory: Yes: Regular, CTA Bilaterally Gastrointestinal: Yes: Normal Bowel Sounds, Soft Cardiovascular: Yes: Regular Rate and Rhythm JVD: No Heart Sounds: Yes: S1, S2 Extremities: No: Cold Edema: No Integumentary: No: Jaundice Neurological: Yes: Alert, Oriented Psychiatric: No: Agitated CBC, BMP 07/10/19 06:28 07/10/19 06:28 Assessment/Plan EKG: sinus, nl intervals, no ischemic changes CTA neck: complete occlusion of L ICA tele: sr echo 07/2019: lvh, nl lvef, rv tds, mild-mod tr, nl rvsp, mild peric eff dizziness, weakness, RLE pain - neuro following - no acute stroke on CT head, +chronic infarcts - echo w/o etiology carotid stenosis - occluded LICA on CTA neck last week - +chronic infarcts on CT head, neuro consulted - cont aspirin, plavix, statin - would consider consulting vascular as well elevated trop - indeterminate range, flat trend. no ischemic change on EKG, unlikely ACS - echo with nl lvef HTN -cont current meds DM - manage per primary HLD - cont statin
--- NOTE | 2019-07-10 16:26 | PN ---
Progress Note (short form) - Note Progress Note: Vascular Surgery Pt seen and examined. Carotid doppler shows left ICA stenosis with diminished flow distally. MRI shows no flow in the petrous portion of the left ICA. Also shows diminished flow in the intracranial circulation. Due to the occlusion in the distal ICA -- no need for any vascular intervention. Medical management. Mitesh Arrington DO
--- NOTE | 2019-07-10 17:26 | PN ---
Progress Note (short form) - Note Progress Note: Hospitalist Medicine Has had trouble ambulating and required a walker. Per neuro, high rec for [facility]. D/w pt and at bedside, currently in agreement. Pending auth Vitals 07/10/19 14:00 Temperature 97.9 F Pulse Rate 80 Respiratory 18 Rate Blood Pressure 142/77 Physical Exam general: pleasant. in NAD HEENT: NCAT neck: supple cardio: S1, S2, RRR. no r/m/g pulm: CTA b/l abdomen: nontender, nondistended, obese. LE: 2+ pulses. 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 2/5 motor strength RLE. 5/5 LLE. sensation intact. + mild pronator drift RUE. no dysmetria Laboratory Tests 07/10/19 07/10/19 07/10/19 06:28 06:28 06:51 WBC 5.6 Hgb 13.3 Hct 39.6 Plt Count 212 Sodium 139 Potassium 3.8 Chloride 104 Carbon Dioxide 28 BUN 10.8 Creatinine 0.9 POC Glucometer 273 Random Glucose 243 H Troponin I 0.08 H 07/10/19 12:25 WBC Hgb Hct Plt Count Sodium Potassium Chloride Carbon Dioxide BUN Creatinine POC Glucometer 247 Random Glucose Troponin I Imaging 07/08/19: Head CT: left frontal and parietal cortical/ subcortical infarcts are noted of indeterminate age on basis of current exam. also a small indeterminate left basal ganglia infarct. 07/08/19: Lumbar CT: right L3-L4 foraminal disc herniation. multilevel degenerative disc and facet joint changes. there is partial imaging of a nonspecific subcutaneous nodule in the left paramedian aspect of the lower thoracic region at the T10 level. 07/09/19: Carotid sono: moderate atherosclerotic dz with abnormal flow with the proximal L ICA which is consistent with the distal occlusion which have been identified on a recent CTA examination not new finding 07/09/19: ECHO: moderate concentric LVH, LVEF normal, trace to mild MR, mild pericardial effusion, mild to mod TR, RVSP normal 07/09/19: Brain MRI: no hydrocephalus, midline shift, herniation, chronic microangiopathic changes. possible posthemorrhagic encephalomalacia in L basal ganglia w peripheral gliosis . chronic ischemic changes in L centrum semiovale, posterior periventricular white matter, left postcentral gyrus, left parietal lobe cortex. restrictive changes on diffuse weighted images in L precentral gyrus, superior partietal lobule, left centrum semiovale, left posterior periventricular white matter with low signal density on ADC consistent with recent, acute, subacute infarcts 07/10/19: Brain MRI, MRA: flow enhancement in R internal carotid a., posterior communicating arteries. patent anterior cerebral arteries. no flow in petrous, cavernous segments of L ICA. diminished flow in cedric clinoid of L ICA, M1 of L MCA, M2 branches through L sylvian fissure. atherosclerotic changes in M1 of R MCA. patent vertebrals, posterior cerebral. hypoplastic L P1 segment, the left posterior communicating artery provides dominant blood supply to the left P2 segment. ASSESSMENT/PLAN: This is a 73 y/o M with a PMHx HTN, HLD, IDDM, CAD (possible PA? given pt on ASA /Plavix), and CTA (07/04/19 showing Lt ICA occlusion), presenting with RLE weakness, numbness, tingling X 5-7 days. #r/o CVA -ECHO noted -carotid doppler result noted; not new finding -c/w plavix, asa, crestor -neuro consult: Dr. Corbett -PT eval; able to ambulate, however requiring walker #Occluded L ICA -vasc consulted; c/w medical mgmt -no acute intervention needed -Vasc: Dr. Arrington #Tropinemia -asymptomatic, flat trend -Cardio: Dr. Guzman -EKG w/ NSR, HR 77, nl axis, nl intervals #HTN - hold losartan, norvasc for now per neuro to improve perfusion -will likely need additional agent IDDM - Hold oral antihyperglycemics at this time - ISS TIDAC - f/u A1C - c/w Gabapentin 300 BID for neuropathy #HLD - c/w crestor #F/E/N no need for IVF at this time continue to follow lytes diabetic/na controlled diet #PPX DVT: on lovenox #Dispo cont'd tele monitoring for [facility]; auth pending
[2019-07-10] MEDS: ROSUVASTATIN CA 10 MG TABLET (FP) PO SCH (21:13)
[2019-07-11] MEDS: INSULIN SLIDING SCALE (NOVOLOG) 1 VIAL SQ SCH ×2 (06:13→12:32)
--- NOTE | 2019-07-11 09:35 | PN ---
Progress Note, Physician Chief Complaint: sitting in solarium Denies CP, SOB, palps. TELE: NSR, no AF. - Current Medication List Current Medications: Active Medications Amlodipine Besylate (Norvasc -) 10 mg PO DAILY [facility] Last Admin: 07/10/19 10:24 Dose: 10 mg Aspirin (Ecotrin -) 81 mg PO DAILY [facility] Last Admin: 07/10/19 10:23 Dose: 81 mg Clopidogrel Bisulfate (Plavix -) 75 mg PO DAILY [facility] Last Admin: 07/10/19 10:25 Dose: 75 mg Enoxaparin Sodium (Lovenox -) 40 mg SQ DAILY [facility] Last Admin: 07/10/19 10:24 Dose: 40 mg Gabapentin (Neurontin -) 300 mg PO BID [facility] Last Admin: 07/10/19 21:13 Dose: 300 mg Insulin Aspart (Novolog Vial Sliding Scale -) 1 vial SQ TIDAC [facility]; Protocol Last Admin: 07/11/19 06:13 Dose: 6 units Losartan Potassium (Cozaar -) 100 mg PO DAILY [facility] Last Admin: 07/10/19 10:24 Dose: 100 mg Rosuvastatin Calcium (Crestor -) 10 mg PO HS [facility] Last Admin: 07/10/19 21:13 Dose: 10 mg - Objective Vital Signs: Vital Signs Temperature 98 F 07/11/19 06:00 Pulse Rate 65 07/11/19 06:00 Respiratory Rate 18 07/11/19 06:00 Blood Pressure 144/81 07/11/19 06:00 O2 Sat by Pulse Oximetry (%) 93 L 07/10/19 21:00 Constitutional: Yes: No Distress, Calm Eyes: Yes: Conjunctiva Clear Cardiovascular: Yes: Regular Rate and Rhythm Respiratory: Yes: CTA Bilaterally Gastrointestinal: Yes: Soft (NT) Edema: No Peripheral Pulses WNL: Yes Neurological: Yes: Alert, Oriented Labs: CBC, BMP 07/10/19 06:28 07/10/19 06:28 INR, PTT INR 0.93 (0.83-1.09) 07/08/19 17:25 - ....Imaging EKG: Image Reviewed Assessment/Plan Assessment/Plan EKG: sinus, nl intervals, no ischemic changes CTA neck: complete occlusion of L ICA tele: sr echo 07/2019: lvh, nl lvef, rv tds, mild-mod tr, nl rvsp, mild peric eff 1. Dizziness, weakness, RLE pain: CVAs on MRI (left distribution) - neuro following - MRI noted. - echo w/o etiology 2. Carotid stenosis: - occluded LICA on CTA neck last week - +chronic infarcts on CT head, neuro consulted - cont aspirin, plavix, statin - would consider consulting vascular as well 3. Elevated trop: - indeterminate range, flat trend. no ischemic change on EKG, unlikely ACS - echo with nl lvef 4. HTN: -cont current meds 5. DM: - manage per primary 6. HLD: - cont statin
[2019-07-11] MEDS: GABAPENTIN 300 MG CAPSULE (FP) PO SCH (10:42)
[2019-07-11] MEDS: ENOXAPARIN NA (PORCINE) 40 MG/0.4 ML DISP.SYRIN SQ SCH (10:42)
[2019-07-11] MEDS: ASPIRIN COATED 81 MG TABLET.EC PO SCH (10:42)
[2019-07-11] MEDS: CLOPIDOGREL BISULFATE 75 MG TABLET (FP) PO SCH (10:42)
[2019-07-11] MEDS: amLODIPine BESYLATE 10 MG TABLET (FP) PO SCH (12:31)
[2019-07-11 15:08] VITALS: BP 156/82; PULSE 71; TEMP 97.8
--- NOTE | 2019-07-11 19:49 | DS ---
Physical Exam: SUBJECTIVE: Patient seen and examined at bedside. In good spirits, to go home with [facility]. OBJECTIVE: Vital Signs Period Temp Pulse Resp BP Sys/Aguilar Pulse Ox Last 24 Hr 97.3 F-98.9 F 65-78 18-18 144-156/80-91 93-93 Physical Exam general: pleasant. in NAD HEENT: NCAT neck: supple cardio: S1, S2, RRR. no r/m/g pulm: CTA b/l abdomen: nontender, nondistended, obese. LE: 2+ pulses. 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 2/5 motor strength RLE. 5/5 LLE. sensation intact. + mild pronator drift RUE. no dysmetria LABS Laboratory Results - last 24 hr 07/11/19 07/11/19 05:46 12:15 POC Glucometer 265 246 07/08/19 07/10/19 17:25 06:28 WBC 6.3 5.6 Hgb 13.7 13.3 Hct 40.7 39.6 Plt Count 229 212 07/08/19 17:25 PT with INR 11.00 INR 0.93 PTT (Actin FS) 36.1 07/08/19 07/09/19 07/09/19 17:25 06:00 06:00 Sodium 138 Potassium 3.8 3.5 Chloride 103 104 Carbon Dioxide 30 28 Anion Gap 5 L 7 L BUN 11.0 Creatinine 0.9 Random Glucose 196 H 212 H Hemoglobin A1c % 9.0 H AST 14 L Alkaline Phosphatase 132 H Creatine Kinase Index 1.8 CK-MB (CK-2) 4.9 H Troponin I 0.09 H Total Protein 6.9 Albumin 3.6 HDL Cholesterol 31 L Vitamin B12 1043 H Serum Folate 9 TSH 5.02 H Free T4 1.03 07/10/19 06:28 Sodium 139 Potassium 3.8 Chloride 104 Carbon Dioxide 28 Anion Gap 7 L BUN 10.8 Creatinine 0.9 Random Glucose 243 H Hemoglobin A1c % AST Alkaline Phosphatase Creatine Kinase Index CK-MB (CK-2) Troponin I 0.08 H Total Protein Albumin HDL Cholesterol Vitamin B12 Serum Folate TSH Free T4 Imaging 07/08/19: Head CT: left frontal and parietal cortical/ subcortical infarcts are noted of indeterminate age on basis of current exam. also a small indeterminate left basal ganglia infarct. 07/08/19: Lumbar CT: right L3-L4 foraminal disc herniation. multilevel degenerative disc and facet joint changes. there is partial imaging of a nonspecific subcutaneous nodule in the left paramedian aspect of the lower thoracic region at the T10 level. 07/09/19: Carotid sono: moderate atherosclerotic dz with abnormal flow with the proximal L ICA which is consistent with the distal occlusion which have been identified on a recent CTA examination 07/09/19: ECHO: moderate concentric LVH, LVEF normal, trace to mild MR, mild pericardial effusion, mild to mod TR, RVSP normal 07/09/19: Brain MRI: no hydrocephalus, midline shift, herniation, chronic microangiopathic changes. possible posthemorrhagic encephalomalacia in L basal ganglia w peripheral gliosis . chronic ischemic changes in L centrum semiovale, posterior periventricular white matter, left postcentral gyrus, left parietal lobe cortex. restrictive changes on diffuse weighted images in L precentral gyrus, superior partietal lobule, left centrum semiovale, left posterior periventricular white matter with low signal density on ADC consistent with recent, acute, subacute infarcts 07/10/19: Brain MRI, MRA: flow enhancement in R internal carotid a., posterior communicating arteries. patent anterior cerebral arteries. no flow in petrous, cavernous segments of L ICA. diminished flow in cedric clinoid of L ICA, M1 of L MCA, M2 branches through L sylvian fissure. atherosclerotic changes in M1 of R MCA. patent vertebrals, posterior cerebral. hypoplastic L P1 segment, the left posterior communicating artery provides dominant blood supply to the left P2 segment. HOSPITAL COURSE: Date of Admission:07/08/19 Date of Discharge: 07/11/19 This is a 73 y/o M with a PMHx HTN, HLD, IDDM, CAD (possible OR? given pt on ASA /Plavix), and CTA (07/04/19 showing Lt ICA occlusion), presenting with RLE weakness, numbness, tingling X 5-7 days. #r/o CVA -ECHO noted -carotid doppler result noted; not new finding. seen by vascular no acute mgmt needed. continue medical mgmt -c/w plavix, asa, crestor -neuro consult: Dr. Corbett -PT eval; able to ambulate, however requiring walker -denied by inpt Moise. can go as an outpt, c/w [facility] at home for PT #Occluded L ICA -vasc consulted; c/w medical mgmt -no acute intervention needed -Vasc: Dr. Arrington #Tropinemia -asymptomatic, flat trend -Cardio: Dr. Guzman -EKG w/ NSR, HR 77, nl axis, nl intervals #HTN - c/w losartan, norvasc for now per neuro IDDM - Hold oral antihyperglycemics at this time - ISS TIDAC - c/w Gabapentin 300 BID for neuropathy #HLD - c/w crestor Minutes to complete discharge: 45 Discharge Summary Problems reviewed: Yes Reason For Visit: WEAKENSS OF BOTH LOWER EXTREMITIES Condition: Improved - Instructions Diet, Activity, Other Instructions: You were in the hospital because you had weakness in your right leg. You had difficulty walking. It is likely that you had a stroke. You were seen by a neurologist. You will need to use a walker on your discharge home, however you will work with [facility] ([facility]) and do home rehabilitation. You may also go to [place] as an outpatient. You improved during your stay, and are being sent home. Testing You had an occlusion found in your left internal carotid artery (neck artery). You were evaluated by a vascular doctor and no intervention was needed. Your brain MRI result was reviewed by the neurologist. It showed decreased flow in your internal carotid a, and your middle cerebral arteries. You were found to have right L3-L4 (lumbar) foraminal disc herniation. We are referring you to an orthopedic doctor as an outpatient below, whom you can follow with. Care You will need to use a walker to stabilize your gait at home. Treatment 1. Please continue your home medications. No new medications have started during your visit. Follow-up visits Please follow up with the following doctors on your discharge: -Dr. Espinoza , your primary care doctor - this upcoming week to discuss your visit and establish care -Dr. Corbett, a neurologist - to discuss your leg weakness, and continue to follow up -Dr. Dorantes - an orthopedic doctor, whom you can meet with as an outpatient this week. To determine if you need any treatment for your disc herniation and disc disease. -Dr. Mitesh Arrington - a vascular surgeon, to monitor your vascular disease - 1 month Referrals: Koko Corbett MD [Staff Physician] - 1 Week Nikko Espinoza MD [Non Staff, Medical] - 07/14/19 Koko Dorantes MD [Staff Physician] - 07/14/19 Mitesh Arrington DO [Staff Physician] - 1 Month Disposition: HOME - Home Medications Comprehensive Discharge Medication List: Ambulatory Orders Amlodipine Besylate 10 mg PO DAILY 07/08/19 Aspirin [Aspirin EC] 1 tab PO DAILY 07/08/19 Atorvastatin Ca [Lipitor] 80 mg PO HS 07/08/19 Clopidogrel Bisulfate [Clopidogrel] 1 tab PO DAILY 07/08/19 Gabapentin 300 mg PO BID 07/08/19 Insulin Glargine,Hum.rec.anlog [Lantus Solostar PEN -] 20 units PO HS 07/08/19 Losartan Potassium 1 tab PO DAILY 07/08/19 Metformin HCl [Glucophage] 500 mg PO BID 07/08/19 This patient is new to me today: No Emergency Visit: No Critical Care patient: No - Discharge Referral Referred to [facility] No ATTENDING PHYSICIAN STATEMENT I saw and evaluated the patient. I reviewed the resident's note and discussed the case with the resident. I agree with the resident's findings and plan as documented. SUBJECTIVE: OBJECTIVE: ASSESSMENT AND PLAN:
== END 2019-07-11 15:30 | disposition home or self-care (01) | DRG 552 ==
LOC: JER 15:57 → JERBED 22:27 → J4W 07-09 06:21
PROVIDERS: ADMIT Internal Medicine; ATTEND Internal Medicine
DX: M51.16 Intervertebral disc disorders with radiculopathy, lumbar region (principal); M51.37 Other intervertebral disc degeneration, lumbosacral region; I10 Essential (primary) hypertension; E78.5 Hyperlipidemia, unspecified; E11.9 Type 2 diabetes mellitus without complications; I25.10 Atherosclerotic heart disease of native coronary artery without angina pectoris; I65.22 Occlusion and stenosis of left carotid artery; Z86.73 Personal history of transient ischemic attack (TIA), and cerebral infarction without residual deficits
CPT/HCPCS: 36415; 70450-TC; 70544-TC; 70551-TC; 72131-TC; 80048; 80053; 82465; 82550; 82553; 82607; 82746; 82962; 83036; 83718; 83721; 83735; 84100; 84439; 84443; 84478; 84484; 85025; 85610; 85651; 85730; 86593; 86850; 86900; 86901; 93005; 93010; 93306-TC; 93880-TC; 97116-GP; 97161-GP; 99285-25; J7030

== ENCOUNTER 2019-09-17 13:16 | Inpatient (IN) | payer OTHER ==
--- NOTE | 2019-09-17 14:56 | PDOC ---
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 Patient reports that he has been completely unable to move his R arm starting some time yesterday. Alternates between stating yesterday morning, yesterday afternoon, and yesterday evening. Patient is on aspirin/clopidogrel but states that he does not always take it. Patient is poor historian. States that he went to an outpatient office in [place] yesterday and to [facility] today, who both recommended that he go to the ER. Does not know why he did not go straight to the ER. NIH Stroke Scale - Last Known Well Date/Time & Onset Date Last Known Well: 09/16/19 (unknown time) - Initial Evaluation Level of consciousness: Alert Ask patient the month and their age: Answers both correctly Ask patient to open & close eyes; make fist and let go: Obeys both correctly Best gaze (horizontal eye movement): Normal Visual field testing: No visual field loss Facial paresis (Show teeth/raise eyebrows/close eyes tight): Partial paralysis ( total or near paralysis of lower face) Motor Function: Left Arm: Normal Motor Function: Right Arm: No movement Motor Function: Left Leg: Normal (extends leg 30 degrees for 5 seconds without drift) Motor Function: Right Leg: Drift Limb Ataxia: Present in one limb Sensory(Use pinprick test arms,legs,trunk,face/side to side): Normal Best language (Describe picture, name items, read sentences): No Aphasia Dysarthria (read several words): Normal articulation Extinction and Inattention: No abnormality - Total Score NIH Stroke Scale Score: 8 Past History - Past Medical History Allergies/Adverse Reactions: Allergies Allergy/AdvReac Type Severity Reaction Status Date / Time No Known Allergies Allergy Verified 09/17/19 13:27 Home Medications: Ambulatory Orders Amlodipine Besylate 10 mg PO DAILY 07/08/19 Aspirin [Aspirin EC] 1 tab PO DAILY 07/08/19 Atorvastatin Ca [Lipitor] 80 mg PO HS 07/08/19 Clopidogrel Bisulfate [Clopidogrel] 1 tab PO DAILY 07/08/19 Gabapentin 300 mg PO BID 07/08/19 Insulin Glargine,Hum.rec.anlog [Lantus Solostar PEN -] 20 units PO HS 07/08/19 Losartan Potassium 1 tab PO DAILY 07/08/19 Metformin HCl [Glucophage] 500 mg PO BID 07/08/19 Cardiac Disorders: Yes COPD: No Diabetes: Yes HTN: Yes Hypercholesterolemia: Yes - Psycho Social/Smoking Cessation Hx Smoking History: Never smoked Have you smoked in the past 12 months: No Information on smoking cessation initiated: No Hx Alcohol Use: No Drug/Substance Use Hx: No *Physical Exam - Vital Signs Last Vital Signs Temp Pulse Resp BP Pulse Ox 97.7 F 74 18 154/74 97 09/17/19 13:28 09/17/19 13:28 09/17/19 13:28 09/17/19 13:28 09/17/19 13:28 ED Treatment Course - LABORATORY CBC & Chemistry Diagram: 09/17/19 15:00 09/17/19 15:00 - RADIOLOGY Radiology Studies Ordered: Category Date Time Status HEAD CT WITHOUT CONTRAST [CT] Stat CT Scan 09/17/19 14:22 Taken BRAIN MRI W&W/O CONTRAST [MRI] Stat MRI 09/17/19 14:55 Ordered Medical Decision Making - Medical Decision Making 09/17/19 14:30 Concern for acute CVA. NIHSS 8. - CT head with no acute hemorrhage, multiple chronic infarcts - CBC, CMP - EKG, trop - coags - admit 09/17/19 15:[address] Valentine, states that with uncertain timeline, patient is not a candidate for tPa or for thrombectomy. Recommends admission for MRI/MRA. Will admit to hospitalist. 09/17/19 15:24 EKG normal sinus at 68 bpm. Discharge - Discharge Information Problems reviewed: Yes Clinical Impression/Diagnosis: Hemiparesis, right, CVA (cerebral vascular accident) - Follow up/Referral - Patient Discharge Instructions - Post Discharge Activity
[2019-09-17 15:18] LABS: BASO % 0.6 % (0-2.0); EOS % 2.5 % (0-4.5); HEMOGLOBIN 14.7 GM/dL (11.7-16.9); LYMPH % 28.5 % (8-40); MCH 26.6 pg (25.7-33.7); MCHC 33.3 g/dl (32.0-35.9); MEAN CELL VOLUME 79.9 fl (80-96); MEAN PLT VOLUME 8.8 fl (7.5-11.1); NEUT % 61.4 % (42.8-82.8); PLATELET COUNT 265 K/MM3 (134-434); RBC 5.51 M/mm3 (4.00-5.60); RDW 13.6 % (11.9-15.9); WHITE BLOOD COUNT 8.1 K/mm3 (4.0-10.0)
[2019-09-17 15:36] LABS: INR 0.98 (0.83-1.09); PROTHROMBIN TIME (PATIENT) 11.6 SEC (9.7-13.0)
[2019-09-17 15:38] LABS: MAGNESIUM 2.2 mg/dL (1.8-2.4); PHOSPHOROUS 3.7 mg/dL (2.5-4.9)
[2019-09-17 15:39] LABS: ACTIVATED PTT 42.4 SECONDS (25.2-36.5)
[2019-09-17 15:41] LABS: ALBUMIN 4.1 g/dl (3.4-5.0); BILIRUBIN,TOTAL 0.3 mg/dL (0.2-1); BLOOD UREA NITROGEN 14.8 mg/dL (7-18); CALCIUM 10.1 mg/dL (8.5-10.1); CREATININE 1.1 mg/dL (0.55-1.3); POTASSIUM 4.1 mmol/L (3.5-5.1); TOT PROT 7.8 g/dl (6.4-8.2)
--- NOTE | 2019-09-17 17:20 | PDOC ---
Documentation entered by Gil Worthy SCRIBE, acting as scribe for Krystina Guerrero MD. Krystina Guerrero MD: This documentation has been prepared by the Deacon sanchez Nirvannie, SCRIBE, under my direction and personally reviewed by me in its entirety. I confirm that the documentation accurately reflects all work, treatment, procedures, and medical decision making performed by me. Attending Attestation - Resident Resident Name: Alethea Glasgow - ED Attending Attestation I have performed the following: I have examined & evaluated the patient, The case was reviewed & discussed with the resident, I agree w/resident's findings & plan, Exceptions are as noted - HPI HPI: 09/17/19 15:47 The patient is a 73 year old male, with a significant past medical history of hypertension, diabetes mellitus, CVA (numerous with residual right leg weakness , intermittent compliance with Aspirin/Plavix), who presents to the emergency department with right sided hemiparesis. As per patient, his symptoms onset sometime yesterday. Patient was advised by outpatient office in [place] ( yesterday) and [facility] (today) who advised him to report to the ED, prompting his arrival. Patient is a poor historian thus, history is limited. Allergies: NKDA - Physicial Exam PE: 09/17/19 17:20 awake alert lungs clear bilat heart rrr no mrg abd soft nt nd ext wwp. no edema. no calf tenderness. right arm weakness cant move at all. right leg can lift against gravity but hits bed. mild right nasolabial fold flattening. sensation intact. - Medical Decision Making 09/17/19 17:21 73 yo M h/o severe left MCA disease, carotid disease. htn hld, prior cva here wtih c/o right arm weakness and leg weakness since yesterday. no n/v no cp no sob. no other coplaints. on my exam pt wiht severe right sided weakness. plan ct head. labs ekg ct head concerns for new stroke . plan mri, ekg labs admit to tele. 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 Heart Score/ECG Review #1 General ECG Interpretation: Sinus Rhythm, Normal Rate (68), Normal Intervals, No acute ischemic changes NIH Stroke Scale - Initial Evaluation Level of consciousness: Alert Ask patient the month and their age: Answers both correctly Ask patient to open & close eyes; make fist and let go: Obeys both correctly Best gaze (horizontal eye movement): Normal Visual field testing: No visual field loss Facial paresis (Show teeth/raise eyebrows/close eyes tight): Minor paralysis ( flattened nasolabial fold, asymmetry on smiling) (right nasolabial fold flattening) Motor Function: Left Arm: Normal Motor Function: Right Arm: No movement Motor Function: Left Leg: Normal (extends leg 30 degrees for 5 seconds without drift) Motor Function: Right Leg: Some effort against gravity Limb Ataxia: No ataxia Sensory(Use pinprick test arms,legs,trunk,face/side to side): Normal Best language (Describe picture, name items, read sentences): No Aphasia Dysarthria (read several words): Normal articulation Extinction and Inattention: No abnormality - Total Score NIH Stroke Scale Score: 7
--- NOTE | 2019-09-17 18:18 | PN ---
Teaching Attending Note Name of Resident: Elly Redman ATTENDING PHYSICIAN STATEMENT I saw and evaluated the patient. I reviewed the resident's note and discussed the case with the resident. I agree with the resident's findings and plan as documented. 73 AA male h/o multiple CVAs with RLE weakness and R facial droop, HTN, HLD, IDDM, presents with dense RUE paralysis since last night. Patient endorses slowly feeling heaviness in his R arm last night and eventually was not able to move it. Patient denies headache, LOC, Cp, SOB. Has a history of many CVAs last was admitted in Jul [address] brain shows multiple old infarcts , awaiting MRI/MRA in the mean time patient started on secondary stroke protocol. Denies taking ASA/Plavix due to "running out", denies bleeding from any source. GA comfortable, AAox3, speaking in full sentences HEENT NC/AT, R nasolabial fold flattening, R facial droop (chronic), MMM, neck supple, EOMI, MISAEL Chest CTAB, no crackles or wheezing CVS S1, S2+, RRR Abd Soft, NT, ND, BS+ Ext No LE edema, no calf tenderness Neuro 0/5 strength RUE, 5/5 LUE, sensation intact and equal UE bilaterally, good radial pulses b/l, 4/5 strength RLE, 5/5 strength LLE sensation intact and equal LE b/l Psych appropriate mood and affect, sometimes quiet need to repeat questions Vital Signs - 24 hr 09/17/19 09/17/19 09/17/19 13:28 15:00 17:13 Temperature 97.7 F Pulse Rate 74 Pulse Rate [ 79 69 Apical] Respiratory 18 18 18 Rate Blood Pressure 154/74 Blood Pressure 158/87 160/83 [Left Arm] O2 Sat by Pulse 97 98 98 Oximetry (%) Laboratory Results - last 24 hr 09/17/19 09/17/19 09/17/19 15:00 15:00 15:00 WBC 8.1 RBC 5.51 Hgb 14.7 Hct 44.0 MCV 79.9 L MCH 26.6 MCHC 33.3 RDW 13.6 Plt Count 265 D MPV 8.8 Absolute Neuts (auto) 5.0 Neutrophils % 61.4 Lymphocytes % 28.5 Monocytes % 7.0 Eosinophils % 2.5 Basophils % 0.6 Nucleated RBC % 0 PT with INR INR PTT (Actin FS) Sodium 138 Potassium 4.1 Chloride 104 Carbon Dioxide 28 Anion Gap 6 L BUN 14.8 Creatinine 1.1 Est GFR (CKD-EPI)AfAm 77.86 Est GFR (CKD-EPI)NonAf 67.18 Random Glucose 76 Calcium 10.1 Phosphorus 3.7 Magnesium 2.2 Total Bilirubin 0.3 AST 16 ALT 25 Alkaline Phosphatase 113 Creatine Kinase 221 Creatine Kinase Index 2.1 CK-MB (CK-2) 4.7 H Troponin I 0.05 Total Protein 7.8 Albumin 4.1 09/17/19 15:00 WBC RBC Hgb Hct MCV MCH MCHC RDW Plt Count MPV Absolute Neuts (auto) Neutrophils % Lymphocytes % Monocytes % Eosinophils % Basophils % Nucleated RBC % PT with INR 11.60 INR 0.98 PTT (Actin FS) 42.4 H Sodium Potassium Chloride Carbon Dioxide Anion Gap BUN Creatinine Est GFR (CKD-EPI)AfAm Est GFR (CKD-EPI)NonAf Random Glucose Calcium Phosphorus Magnesium Total Bilirubin AST ALT Alkaline Phosphatase Creatine Kinase Creatine Kinase Index CK-MB (CK-2) Troponin I Total Protein Albumin Home Medications Medication Instructions Recorded Aspirin [Aspirin EC] 1 tab PO DAILY 07/08/19 Clopidogrel Bisulfate [Clopidogrel] 1 tab PO DAILY 07/08/19 Losartan Potassium 1 tab PO DAILY 07/08/19 Metformin HCl [Glucophage] 500 mg PO BID 07/08/19 Sertraline HCl 25 mg PO DAILY 09/17/19 Current Medications Generic Name Dose Route Start Last Admin Trade Name Freq PRN Reason Stop Dose Admin Insulin Aspart 1 vial 09/17/19 22:00 Novolog Vial Sliding Scale - SQ ACHS TAMIKO Protocol A/p: 73 AA male h/o multiple CVAs with chronic RLE weakness and R facial droop, HTN, HLD, IDDM, admitted for dense RUE paralysis. CT-brain not showing acute CVA, MRI /MRA pending. RUE dense paralysis no acute CVA appreciated on CT-brain, awaiting MRI/MRA Cont. secondary stroke protocol, permissive HTN, ASA/Statin Neurochecks Q2H, telemetry monitoring, Echo/Carotids, monitor urine output Neurology consult: Dr Valentine HTN hold BP agents for now, allow for permissive HTN IDDM ISS, basal insulin as needed titrate 140-180 F/S HLD high intensity statin send A1c, lipid panel, TSH, RPR, B12 DVT ppx: Lovenox SC Admit to tele
--- NOTE | 2019-09-17 18:23 | HP ---
CHIEF COMPLAINT: Right arm weakness PCP: HISTORY OF PRESENT ILLNESS: Patient is a 73 year old male with past medical history of HTN, HLD, IDDM, CAD on ASA/Plavix), multiple CVAs with residual RLE weakness and Right facial droop , presented to the ED due to sudden onset Right arm paralysis that started yesterday. Patient unsure what time exactly it happened yesterday. Patient was admitted in July 2019 for RLE weakess where he was treated for CVA. He was discharged home with a walker. Patient denies any recent illness, denies any trauma, denies headache, dizziness, fevers, chills, headache, dizziness, chest pain, SOB, abdominal pain, diarrhea, urinary symptoms. ER course was notable for: (1)Head CT - no acute pathology (2) (3) Recent Travel:denies PAST MEDICAL HISTORY: HTN HLD IDDM CAD multiple CVAs Social History: Smoking:denies Alcohol:denies Drugs: denies Allergies No Known Allergies Allergy (Verified 09/17/19 13:27) HOME MEDICATIONS: Home Medications Medication Instructions Recorded Aspirin [Aspirin EC] 1 tab PO DAILY 07/08/19 Clopidogrel Bisulfate [Clopidogrel] 1 tab PO DAILY 07/08/19 Losartan Potassium 1 tab PO DAILY 07/08/19 Metformin HCl [Glucophage] 500 mg PO BID 07/08/19 Sertraline HCl 25 mg PO DAILY 09/17/19 REVIEW OF SYSTEMS CONSTITUTIONAL: Absent: fever, chills, diaphoresis, generalized weakness, malaise, loss of appetite, weight change HEENT: Absent: rhinorrhea, nasal congestion, throat pain, throat swelling, difficulty swallowing, mouth swelling, ear pain, eye pain, visual changes CARDIOVASCULAR: Absent: chest pain, syncope, palpitations, irregular heart rate, lightheadedness , peripheral edema RESPIRATORY: Absent: cough, shortness of breath, dyspnea with exertion, orthopnea, wheezing, stridor, hemoptysis GASTROINTESTINAL: Absent: abdominal pain, abdominal distension, nausea, vomiting, diarrhea, constipation, melena, hematochezia GENITOURINARY: Absent: dysuria, frequency, urgency, hesitancy, hematuria, flank pain, genital pain MUSCULOSKELETAL: Absent: myalgia, arthralgia, joint swelling, back pain, neck pain SKIN: Absent: rash, itching, pallor HEMATOLOGIC/IMMUNOLOGIC: Absent: easy bleeding, easy bruising, lymphadenopathy, frequent infections ENDOCRINE: Absent: unexplained weight gain, unexplained weight loss, heat intolerance, cold intolerance NEUROLOGIC: +RUE paralysis Absent: headache, focal weakness or paresthesias, dizziness, unsteady gait, seizure, mental status changes, bladder or bowel incontinence PSYCHIATRIC: Absent: anxiety, depression, suicidal or homicidal ideation, hallucinations. PHYSICAL EXAMINATION Vital Signs - 24 hr 09/17/19 09/17/19 09/17/19 13:28 15:00 17:13 Temperature 97.7 F Pulse Rate 74 Pulse Rate [ 79 69 Apical] Respiratory 18 18 18 Rate Blood Pressure 154/74 Blood Pressure 158/87 160/83 [Left Arm] O2 Sat by Pulse 97 98 98 Oximetry (%) GENERAL: Awake, alert, and fully oriented, in no acute distress. HEAD: Normal with no signs of trauma. EYES: PERRLA, EOMI, sclera anicteric, conjunctiva clear. EARS, NOSE, THROAT: Dry mucous membranes. NECK: Normal range of motion, supple without lymphadenopathy, JVD, or masses. LUNGS: Breath sounds equal, clear to auscultation bilaterally. HEART: Regular rate and rhythm, normal S1 and S2 without murmur, rub or gallop. ABDOMEN: Soft, nontender, not distended, normoactive bowel sounds. MUSCULOSKELETAL: Normal passive ROM on all extremities UPPER EXTREMITIES: 2+ pulses, warm, well-perfused. No peripheral edema. LOWER EXTREMITIES: 2+ pulses, warm, well-perfused. No peripheral edema. NEUROLOGICAL: AAOx3, +Facial droop, Asymmetric smile, rest of CN grossly intact. Motor strength 0/5 on RUE, 5/5 LUE, 4/5 RLE, 5/5 LLE, sensation intact on all extremities. PSYCHIATRIC: Cooperative. Good eye contact. Appropriate mood and affect. SKIN: Warm, dry, normal turgor. Laboratory Results - last 24 hr 09/17/19 09/17/19 09/17/19 15:00 15:00 15:00 WBC 8.1 RBC 5.51 Hgb 14.7 Hct 44.0 MCV 79.9 L MCH 26.6 MCHC 33.3 RDW 13.6 Plt Count 265 D MPV 8.8 Absolute Neuts (auto) 5.0 Neutrophils % 61.4 Lymphocytes % 28.5 Monocytes % 7.0 Eosinophils % 2.5 Basophils % 0.6 Nucleated RBC % 0 PT with INR INR PTT (Actin FS) Sodium 138 Potassium 4.1 Chloride 104 Carbon Dioxide 28 Anion Gap 6 L BUN 14.8 Creatinine 1.1 Est GFR (CKD-EPI)AfAm 77.86 Est GFR (CKD-EPI)NonAf 67.18 Random Glucose 76 Calcium 10.1 Phosphorus 3.7 Magnesium 2.2 Total Bilirubin 0.3 AST 16 ALT 25 Alkaline Phosphatase 113 Creatine Kinase 221 Creatine Kinase Index 2.1 CK-MB (CK-2) 4.7 H Troponin I 0.05 Total Protein 7.8 Albumin 4.1 09/17/19 15:00 WBC RBC Hgb Hct MCV MCH MCHC RDW Plt Count MPV Absolute Neuts (auto) Neutrophils % Lymphocytes % Monocytes % Eosinophils % Basophils % Nucleated RBC % PT with INR 11.60 INR 0.98 PTT (Actin FS) 42.4 H Sodium Potassium Chloride Carbon Dioxide Anion Gap BUN Creatinine Est GFR (CKD-EPI)AfAm Est GFR (CKD-EPI)NonAf Random Glucose Calcium Phosphorus Magnesium Total Bilirubin AST ALT Alkaline Phosphatase Creatine Kinase Creatine Kinase Index CK-MB (CK-2) Troponin I Total Protein Albumin ASSESSMENT/PLAN: Patient is a 73 year old male with past medical history of HTN, HLD, IDDM, CAD on ASA/Plavix), multiple CVAs with residual RLE weakness and Right facial droop , presented to the ED due to sudden onset Right arm paralysis that started yesterday. #RUE paralysis likely 2/2 CVA -Head CT - no evidence of acute intracranial pathology, chronic infarcts -Brain MRI/MRA pending -echo, carotid US -continue ASA/Plavix/Statin -Hold BP meds for now for permissive HTN -Passed bedside swallow eval, will resume diabetic/sodium restricted diet -TSH/B12/Lipid panel/a1c -neurochecks -keep HOB elevated -speech and swallow eval -tele monitoring -NEurology (Dr. Valentine) consulted. REcommendations appreciated. #HTN -Hold hTN meds for now, allow permissive HTN #IDDM -Hold metformin -Continue Insulin Levemir 20u HS -Insulin sliding scale implemented -BGM ACHS #HLD -Continue Lipitor 80mg #FEN -Not on any standing fluids -Electroilytes wnl, routine bmp monitoring -Sodium restricted/diabetic diet #Prophylaxis -Lovenox 40mg sq daily #Disposition -full code -admit to tele Visit type - Emergency Visit Emergency Visit: Yes ED Registration Date: 09/17/19 Care time: The patient presented to the Emergency Department on the above date and was hospitalized for further evaluation of their emergent condition. - New Patient This patient is new to me today: Yes Date on this admission: 09/17/19 - Critical Care Critical Care patient: No ATTENDING PHYSICIAN STATEMENT I saw and evaluated the patient. I reviewed the resident's note and discussed the case with the resident. I agree with the resident's findings and plan as documented. SUBJECTIVE: OBJECTIVE: ASSESSMENT AND PLAN:
[2019-09-17] MEDS ORDERED: INSULIN (LEVEMIR) 100 UNITS/ML UNITS SQ SCH (22:00)
[2019-09-17] MEDS ORDERED: ATORVASTATIN CA 80 MG TABLET (FP) ONE (23:03)
[2019-09-17] MEDS ORDERED: INSULIN (LEVEMIR) 100 UNITS/ML UNITS SQ ONE (23:03)
[2019-09-17] MEDS: ATORVASTATIN CA 80 MG TABLET (FP) PO SCH (23:20)
[2019-09-17] MEDS: GABAPENTIN 300 MG CAPSULE PO SCH (23:20)
[2019-09-17] MEDS: INSULIN SLIDING SCALE (NOVOLOG) 1 VIAL SQ SCH (23:40)
[2019-09-18] MEDS: INSULIN SLIDING SCALE (NOVOLOG) 1 VIAL SQ SCH ×4 (07:44→21:24)
[2019-09-18 07:53] LABS: BASO % 0.5 % (0-2.0); EOS % 4.2 % (0-4.5); HEMATOCRIT 37.5 % (35.4-49); HEMOGLOBIN 12.6 GM/dL (11.7-16.9); LYMPH % 38.8 % (8-40); MCH 26.5 pg (25.7-33.7); MCHC 33.5 g/dl (32.0-35.9); MEAN CELL VOLUME 79.2 fl (80-96); MEAN PLT VOLUME 8.8 fl (7.5-11.1); MONO % 9.8 % (3.8-10.2); NEUT % 46.7 % (42.8-82.8); PLATELET COUNT 219 K/MM3 (134-434); RBC 4.74 M/mm3 (4.00-5.60); RDW 13.8 % (11.9-15.9); WHITE BLOOD COUNT 5.2 K/mm3 (4.0-10.0)
[2019-09-18 08:21] LABS: ALBUMIN 3.2 g/dl (3.4-5.0); ALK PHOS 84 U/L (45-117); ANION GAP 5 MMOL/L (8-16); BILIRUBIN,TOTAL 0.5 mg/dL (0.2-1); BLOOD UREA NITROGEN 14.1 mg/dL (7-18); CALCIUM 9.2 mg/dL (8.5-10.1); CHLORIDE 107 mmol/L (98-107); CO2 28 mmol/L (21-32); CREATININE 0.8 mg/dL (0.55-1.3); GLUCOSE,RANDOM 69 mg/dL (74-106); PHOSPHOROUS 4.1 mg/dL (2.5-4.9); POTASSIUM 3.5 mmol/L (3.5-5.1); SGOT/AST 9 U/L (15-37); SGPT/ALT 21 U/L (13-61); SODIUM 140 mmol/L (136-145); TOT PROT 6.2 g/dl (6.4-8.2)
--- NOTE | 2019-09-18 08:50 | CONSULT ---
Consult - text type - Consultation Consultation Note: Neurology CHIEF COMPLAINT: Right arm weakness HISTORY OF PRESENT ILLNESS: Patient is a 73 year old male with past medical history of HTN, HLD, IDDM, CAD on ASA/Plavix), multiple CVAs with residual RLE weakness and Right facial droop , presented to the ED due to sudden onset Right arm paralysis that started on day prior admission. Patient unsure what time exactly it happened. Patient was admitted in July 2019 for RLE weakness where he was treated for CVA. He was discharged home with a walker. Patient denied any recent illness, denied any trauma, denied headache, dizziness, fevers, chills, chest pain, SOB, abdominal pain, diarrhea, urinary symptoms. Head CT performed and demonstrated no acute pathology. Chronic left perinsular and frontoparietal infarcts. MRI of brain reviewed and showed acute left posterior frontal cortical and subcortical infarcts. MRA of brain also completed and demostrated Occlusion of left ICA. 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 Carotid ultrasound reviewed and demonstrated complete occlusion of left ICA, as mention before. Right arm ultrasound performed and showed no DVT. I informed him of the results. In conversation with patient, e indicated that he has not been taking aspirin and seemed to be confused that it is an [id number] medication that does not require prescription. I discussed with him importance of antiplatelet medication compliance. With complete occlusion of the left internal carotid artery, not likely for surgical management and medical optimization required. Recent Travel:denies PAST MEDICAL HISTORY: HTN HLD IDDM CAD multiple CVAs Family Medical History: HTN Social History: Smoking:denies Alcohol:denies Drugs: denies REVIEW OF SYSTEMS CONSTITUTIONAL: Absent: fever, chills, diaphoresis, generalized weakness, malaise, loss of appetite, weight change HEENT: Absent: rhinorrhea, nasal congestion, throat pain, throat swelling, difficulty swallowing, mouth swelling, ear pain, eye pain, visual changes CARDIOVASCULAR: Absent: chest pain, syncope, palpitations, irregular heart rate, lightheadedness , peripheral edema RESPIRATORY: Absent: cough, shortness of breath, dyspnea with exertion, orthopnea, wheezing, stridor, hemoptysis GASTROINTESTINAL: Absent: abdominal pain, abdominal distension, nausea, vomiting, diarrhea, constipation, melena, hematochezia GENITOURINARY: Absent: dysuria, frequency, urgency, hesitancy, hematuria, flank pain, genital pain MUSCULOSKELETAL: Absent: myalgia, arthralgia, joint swelling, back pain, neck pain SKIN: Absent: rash, itching, pallor HEMATOLOGIC/IMMUNOLOGIC: Absent: easy bleeding, easy bruising, lymphadenopathy, frequent infections ENDOCRINE: Absent: unexplained weight gain, unexplained weight loss, heat intolerance, cold intolerance NEUROLOGIC: +RUE paralysis Absent: headache, focal weakness or paresthesias, dizziness, unsteady gait, seizure, mental status changes, bladder or bowel incontinence PSYCHIATRIC: Absent: anxiety, depression, suicidal or homicidal ideation, hallucinations. Allergies No Known Allergies Allergy (Verified 09/17/19 13:27) HOME MEDICATIONS: Home Medications Medication Instructions Recorded Aspirin [Aspirin EC] 1 tab PO DAILY 07/08/19 Clopidogrel Bisulfate [Clopidogrel] 1 tab PO DAILY 07/08/19 Losartan Potassium 1 tab PO DAILY 07/08/19 Metformin HCl [Glucophage] 500 mg PO BID 07/08/19 Sertraline HCl 25 mg PO DAILY 09/17/19 Active Medications Aspirin (Ecotrin -) 81 mg PO DAILY [facility] Atorvastatin Calcium (Lipitor -) 80 mg PO [facility] Last Admin: 09/17/19 23:20 Dose: 80 mg Clopidogrel Bisulfate (Plavix -) 75 mg PO DAILY [facility] Enoxaparin Sodium (Lovenox -) 40 mg SQ DAILY [facility] Gabapentin (Neurontin -) 300 mg PO BID [facility] Last Admin: 09/17/19 23:20 Dose: 300 mg Insulin Aspart (Novolog Vial Sliding Scale -) [address] [facility]; Protocol Last Admin: 09/18/19 07:44 Dose: Not Given Insulin Detemir (Levemir Vial) 20 units SQ [facility] Last Admin: 09/17/19 23:19 Dose: 20 units PHYSICAL EXAMINATION Vital Signs Period Temp Pulse Resp BP Sys/Aguilar Pulse Ox Last 24 Hr 97.7 F-98.3 F 62-84 11-18 138-168/74-93 97-99 GENERAL: Awake, alert, and fully oriented, in no acute distress. HEAD: Normal with no signs of trauma. EYES: PERRLA, EOMI, sclera anicteric, conjunctiva clear. EARS, NOSE, THROAT: Dry mucous membranes. NECK: Normal range of motion, supple without lymphadenopathy, JVD, or masses. LUNGS: Breath sounds equal, clear to auscultation bilaterally. HEART: Regular rate and rhythm, normal S1 and S2 without murmur, rub or gallop. ABDOMEN: Soft, nontender, not distended, normoactive bowel sounds. MUSCULOSKELETAL: Normal passive ROM on all extremities UPPER EXTREMITIES: 2+ pulses, warm, well-perfused. No peripheral edema. LOWER EXTREMITIES: 2+ pulses, warm, well-perfused. No peripheral edema. NEUROLOGICAL: AAOx3, +Facial droop, Asymmetric smile, rest of CN grossly intact. Motor strength 0/5 on RUE, 5/5 LUE, 4/5 RLE, 5/5 LLE, sensation intact on all extremities. PSYCHIATRIC: Cooperative. Good eye contact. Appropriate mood and affect. SKIN: Warm, dry, normal turgor. CBCD WBC 5.2 K/mm3 (4.0-10.0) 09/18/19 06:25 RBC 4.74 M/mm3 (4.00-5.60) 09/18/19 06:25 Hgb 12.6 GM/dL (11.7-16.9) 09/18/19 06:25 Hct 37.5 % (35.4-49) 09/18/19 06:25 MCV 79.2 fl (80-96) L 09/18/19 06:25 MCHC 33.5 g/dl (32.0-35.9) 09/18/19 06:25 RDW 13.8 % (11.9-15.9) 09/18/19 06:25 Plt Count 219 K/MM3 (134-434) 09/18/19 06:25 MPV 8.8 fl (7.5-11.1) 09/18/19 06:25 CMP Sodium 140 mmol/L (136-145) 09/18/19 06:25 Potassium 3.5 mmol/L (3.5-5.1) 09/18/19 06:25 Chloride 107 mmol/L (98-107) 09/18/19 06:25 Carbon Dioxide 28 mmol/L (21-32) 09/18/19 06:25 Anion Gap 5 MMOL/L (8-16) L 09/18/19 06:25 BUN 14.1 mg/dL (7-18) 09/18/19 06:25 Creatinine 0.8 mg/dL (0.55-1.3) 09/18/19 06:25 Random Glucose 69 mg/dL (74-106) L 09/18/19 06:25 Calcium 9.2 mg/dL (8.5-10.1) 09/18/19 06:25 Total Bilirubin 0.5 mg/dL (0.2-1) 09/18/19 06:25 AST 9 U/L (15-37) L 09/18/19 06:25 ALT 21 U/L (13-61) 09/18/19 06:25 Alkaline Phosphatase 84 U/L (45-117) 09/18/19 06:25 Total Protein 6.2 g/dl (6.4-8.2) L 09/18/19 06:25 Albumin 3.2 g/dl (3.4-5.0) L 09/18/19 06:25 CARDIAC ENZYMES Creatine Kinase 221 U/L (26-308) 09/17/19 15:00 Troponin I 0.05 ng/ml (0.00-0.05) 09/17/19 15:00 ASSESSMENT/PLAN: Patient is a 73 year old male with past medical history of HTN, HLD, IDDM, CAD on ASA/Plavix), multiple CVAs with residual RLE weakness and Right facial droop , presented to the ED due to sudden onset Right arm paralysis that started on day prior admission. Patient unsure what time exactly it happened. Patient was admitted in July 2019 for RLE weakness where he was treated for CVA. He was discharged home with a walker. Patient denied any recent illness, denied any trauma, denied headache, dizziness, fevers, chills, chest pain, SOB, abdominal pain, diarrhea, urinary symptoms. Head CT performed and demonstrated no acute pathology. Chronic left perinsular and frontoparietal infarcts. MRI of brain reviewed and showed acute left posterior frontal cortical and subcortical infarcts. MRA of brain also completed and demostrated Occlusion of left ICA. 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 Carotid ultrasound reviewed and demonstrated complete occlusion of left ICA, as mention before. Right arm ultrasound performed and showed no DVT. I informed him of the results. In conversation with patient, e indicated that he has not been taking aspirin and seemed to be confused that it is an [id number] medication that does not require prescription. I discussed with him importance of antiplatelet medication compliance. With complete occlusion of the left internal carotid artery, not likely for surgical management and medical optimization required. Monitor blood pressure, maintain normotensive range, monitor lipid profile, continue statin. Physical therapy as tolerated, consider short-term rehabilitation. monitor diabetes, continue insulin.
[2019-09-18] MEDS: ASPIRIN COATED 81 MG TABLET.EC PO SCH (09:50)
[2019-09-18] MEDS: CLOPIDOGREL BISULFATE 75 MG TABLET (FP) PO SCH (09:50)
[2019-09-18] MEDS: ENOXAPARIN NA (PORCINE) 40 MG/0.4 ML DISP.SYRIN SQ SCH (09:50)
[2019-09-18] MEDS: GABAPENTIN 300 MG CAPSULE PO SCH ×2 (09:50→21:24)
[2019-09-18] MEDS ORDERED: ASPIRIN 81 MG CHEWABLE TABLETS PO SCH (10:00)
[2019-09-18] MEDS ORDERED: CLOPIDOGREL BISULFATE 75 MG TABLET (FP) PO SCH (10:00)
[2019-09-18 10:17] LABS: ERYTHROCYTE SEDIMENTATION RATE 5 mm/hr (0-20)
[2019-09-18 12:37] LABS: LDL CHOLESTEROL (ONLY SJRH) 103 mg/dL (5-100)
[2019-09-18 12:49] LABS: CHOLESTEROL 148 mg/dL (50-200); HDL CHOLESTEROL 37 mg/dL (40-60); TRIGLYCERIDES 56 mg/dL (0-150)
[2019-09-18 13:02] LABS: PLATELET ESTIMATE NORMAL
--- NOTE | 2019-09-18 15:14 | EKG ---
Test Reason : Blood Pressure : / mmHG Vent. Rate : 068 BPM Atrial Rate : 068 BPM P-R Int : 166 ms QRS Dur : 088 ms QT Int : 406 ms P-R-T Axes : 065 -04 024 degrees QTc Int : 431 ms NORMAL SINUS RHYTHM NORMAL ECG WHEN COMPARED WITH ECG OF 08-JUL-2019 18:07, CRITERIA FOR SEPTAL INFARCT ARE NO LONGER PRESENT Confirmed by YOBANY COLON MD ([id number]) on 09/18/2019 3:14:17 PM Referred By: Confirmed By:YOBANY COLON MD
--- NOTE | 2019-09-18 16:12 | PN ---
Physical Exam: Subjective: Patient examined at bedside, notified him of results of acute CVA, provided support, otherwise denies new complaints. Objective: PE GA comfortable, AAox3, speaking in full sentences HEENT NC/AT, R nasolabial fold flattening, R facial droop (chronic), MMM, neck supple, EOMI, MISAEL Chest CTAB, no crackles or wheezing CVS S1, S2+, RRR Abd Soft, NT, ND, BS+ Ext No LE edema, no calf tenderness Neuro 0/5 strength RUE, 5/5 LUE, sensation intact and equal UE bilaterally, good radial pulses b/l, 4/5 strength RLE, 5/5 strength LLE sensation intact and equal LE b/l Psych appropriate mood and affect, answers to questions Vital Signs - 24 hr 09/17/19 09/17/19 09/17/19 17:13 20:30 23:20 Temperature 98.3 F Pulse Rate Pulse Rate [ 69 72 84 Apical] Respiratory 18 18 18 Rate Blood Pressure Blood Pressure 160/83 168/76 150/84 [Left Arm] O2 Sat by Pulse 98 98 97 Oximetry (%) 09/18/19 09/18/19 09/18/19 00:00 01:00 02:15 Temperature Pulse Rate Pulse Rate [ 69 73 67 Apical] Respiratory 17 15 11 Rate Blood Pressure Blood Pressure 158/84 158/82 150/81 [Left Arm] O2 Sat by Pulse 98 98 98 Oximetry (%) 09/18/19 09/18/19 09/18/19 03:15 04:16 05:17 Temperature Pulse Rate Pulse Rate [ 67 62 66 Apical] Respiratory 15 15 15 Rate Blood Pressure Blood Pressure 138/84 144/93 164/88 [Left Arm] O2 Sat by Pulse 98 99 99 Oximetry (%) 09/18/19 09/18/19 09/18/19 11:00 12:12 12:41 Temperature 98 F Pulse Rate 68 Pulse Rate [ 65 Apical] Respiratory 16 18 Rate Blood Pressure 161/98 Blood Pressure 142/84 [Left Arm] O2 Sat by Pulse 98 98 Oximetry (%) 09/18/19 14:00 Temperature 97.9 F Pulse Rate 67 Pulse Rate [ Apical] Respiratory 20 Rate Blood Pressure 183/75 H Blood Pressure [Left Arm] O2 Sat by Pulse Oximetry (%) Laboratory Results - last 24 hr 09/17/19 09/18/19 09/18/19 23:24 06:25 06:25 WBC 5.2 RBC 4.74 Hgb 12.6 Hct 37.5 MCV 79.2 L MCH 26.5 MCHC 33.5 RDW 13.8 Plt Count 219 MPV 8.8 Absolute Neuts (auto) 2.5 Neutrophils % 46.7 D Lymphocytes % 38.8 D Monocytes % 9.8 Eosinophils % 4.2 Basophils % 0.5 Nucleated RBC % 0 Platelet Estimate Normal Platelet Comment Present ESR 5 Sodium 140 Potassium 3.5 Chloride 107 Carbon Dioxide 28 Anion Gap 5 L BUN 14.1 Creatinine 0.8 Est GFR (CKD-EPI)AfAm 104.17 Est GFR (CKD-EPI)NonAf 89.88 POC Glucometer 202 Random Glucose 69 L Hemoglobin A1c % Calcium 9.2 Phosphorus 4.1 Magnesium 2.0 Total Bilirubin 0.5 AST 9 L ALT 21 Alkaline Phosphatase 84 C-Reactive Protein < 0.3 Total Protein 6.2 L Albumin 3.2 L Triglycerides 56 Cholesterol 148 Total LDL Cholesterol Cancelled HDL Cholesterol 37 L Vitamin B12 800 TSH 1.37 D 09/18/19 09/18/19 09/18/19 06:25 07:28 11:41 WBC RBC Hgb Hct MCV MCH MCHC RDW Plt Count MPV Absolute Neuts (auto) Neutrophils % Lymphocytes % Monocytes % Eosinophils % Basophils % Nucleated RBC % Platelet Estimate Platelet Comment ESR Sodium Potassium Chloride Carbon Dioxide Anion Gap BUN Creatinine Est GFR (CKD-EPI)AfAm Est GFR (CKD-EPI)NonAf POC Glucometer 75 73 Random Glucose Hemoglobin A1c % 10.9 H Calcium Phosphorus Magnesium Total Bilirubin AST ALT Alkaline Phosphatase C-Reactive Protein Total Protein Albumin Triglycerides Cholesterol Total LDL Cholesterol HDL Cholesterol Vitamin B12 TSH Home Medications Medication Instructions Recorded Aspirin [Aspirin EC] 1 tab PO DAILY 07/08/19 Clopidogrel Bisulfate [Clopidogrel] 1 tab PO DAILY 07/08/19 Losartan Potassium 1 tab PO DAILY 07/08/19 Metformin HCl [Glucophage] 500 mg PO BID 07/08/19 Amlodipine Besylate [Norvasc -] 10 mg PO DAILY 09/17/19 Sertraline HCl 25 mg PO DAILY 09/17/19 Current Medications Generic Name Dose Route Start Last Admin Trade Name Freq PRN Reason Stop Dose Admin Aspirin 81 mg 09/18/19 10:00 09/18/19 09:50 Ecotrin - PO 81 mg DAILY TAMIKO Administration Atorvastatin Calcium 80 mg 09/17/19 22:00 09/17/19 23:20 Lipitor - PO 80 mg HS TAMIKO Administration Clopidogrel Bisulfate 75 mg 09/18/19 10:00 09/18/19 09:50 Plavix - PO 75 mg DAILY TAMIKO Administration Enoxaparin Sodium 40 mg 09/18/19 10:00 09/18/19 09:50 Lovenox - SQ 40 mg DAILY TAMIKO Administration Gabapentin 300 mg 09/17/19 22:00 09/18/19 09:50 Neurontin - PO 300 mg BID TAMIKO Administration Insulin Aspart 1 vial 09/17/19 22:00 09/18/19 11:50 Novolog Vial Sliding Scale - SQ Not Given ACHS [facility] Protocol Insulin Detemir 10 units 09/18/19 22:00 Levemir Vial SQ HS TAMIKO A/p: 73 AA male h/o multiple CVAs with chronic RLE weakness and R facial droop, HTN, HLD, IDDM, admitted for dense RUE paralysis. CT-brain not showing acute CVA, but MRI showing acute L posterior cortical and subcortical infarct, and MRA showing complete occlusion of L ICA. RUE dense paralysis Acute L posterior cortical and subcortical CVA on MRI, MRA showing L ICA occlusion Cont. secondary stroke protocol, permissive HTN, ASA/Statin PT evaluation Neurochecks Q2H, telemetry monitoring, follow Echo Neurology consult: Dr Valentine HTN hold BP agents for now, allow for permissive HTN (for total 48 hours) IDDM ISS, basal insulin as needed titrate 140-180 F/S HLD high intensity statin follow lipid panel, TSH, RPR, B12 DVT ppx: Lovenox SC Continue tele monitoring Visit type - Emergency Visit Emergency Visit: Yes ED Registration Date: 09/17/19 Care time: The patient presented to the Emergency Department on the above date and was hospitalized for further evaluation of their emergent condition. - New Patient This patient is new to me today: No - Critical Care Critical Care patient: No - Discharge Referral Referred to [facility] Med [facility] No
--- NOTE | 2019-09-18 17:04 | CONSULT ---
Admitting History and Physical - Smoking History Smoking history: Never smoked Have you smoked in the past 12 months: No - Alcohol/Substance Use Hx Alcohol Use: No History - Admission Reason For Visit: RIGHT HEMIPARESIS - Hearing Hearing: Normal Hearing Aide: No With Patient: No Speech Evaluation - Communication Primary Language: NEPALESE Communication: Yes: Within Normal Limits Oral Expression Ability: Yes: Mild Impairment - Speech Production Apraxia: No Able to Make Needs Known: Yes: WNL Intelligibility: Yes: WNL - Speech Characteristics Voice Loudness: Normal Voice Pitch: Yes: Normal Voice Phonatory-based Quality: Yes: Normal Speech Pattern: Impaired Speech Clarity: < 75% Nasal Resonance: Normal Articulation: Yes: Precise Rate of Speech: Intact Voice Comment: WFL for environment - Language/Auditory Comprehension Follows: Yes: 1 Stage Simple Commands (WFL), 2 Stage Simple Commands (WFL) Observation: Able to respond to yes/no queries: Yes, Yes/No Confusion: No, Comprehends Conversational Speech: Yes, Benefits from Slow Speech: Yes, Benefits from Repetiton: Yes, Benefits from Increased Volume of Speech: Yes - Language/Verbal Expression Able to Respond to Simple Queries: Yes: WNL Able to Communicate Wants and Needs: Yes: WNL Functional Communication Status: Yes: WNL Aware of Errors: Yes Attempts to Correct Errors: Yes Use of Gestures: No Written Expression: Not examined Oral Expression: WFL Reading Comprehension: Not examined Calculations: Not examined Attention: Yes: Intact - Memory/Perception director long term care Memory: Yes: WNL Short Term Memory: Yes: WNL - Swallow Evaluation/Bedside Assessment Current Nutritional Intake: Regular (diabetic) Facial Symmetry at Rest: Facial Droop Right Facial Symmetry on Retraction: Facial Droop Right Sensation: Reduced Right Facial Comment: Right sided weakness but functional for speech and swallowNot examined Jaw Position: Closed at Rest Against Resistance Opening: Normal Against Resistance Closing: Normal Pucker Lips: Droops Right Smile: Droops Right Lips, Comment: Not examined Lingual Movement: Normal Lingual Speed of Movement: Normal Lingual Movement Strgth Against Opposition: Normal Lingual Movement Characteristics: Normal Soft Palate Description: Normal Color Hard Palate Description: Normal Color Gag Reflex: Strong Bite Reflex: Present Velopharyngeal Movement: Normal Laryngeal Elevation: WFL Laryngeal Movement: Able to Palpate Needs Assistance: Yes Rate of Intake: WFL Bolus Size: Small Labial Seal: WFL Chewing: WFL Oral Prep Time: WFL A-P Transit: WFL Timing of Swallow: WFL Odynophagia: Oral Coughing/Throat Clear: No Change in Voice: No Other Findings/Remarks: 73 AA male h/o multiple CVAs with chronic RLE weakness and R facial droop, HTN, HLD, IDDM, admitted for dense RUE paralysis. CT-brain not showing acute CVA, but MRI showing acute L posterior cortical and subcortical infarct, and MRA showing complete occlusion of L ICA. Vocal quality is functional for the environment with speech parameters WNL. Volitional airway protection (without bolus) and swallow is WNL. Hypothyroid elevation was present/strong to palpation of the anterior neck. Current diet: regular diabetic solids with thin liquids. Pt given PO trials of pureed, mechanical soft solids, regular cut to bite sized pieces with total assistance revealed, adequate bolus formation and A P transport with a timely pharyngeal swallow (1-2 second average). No change in voicing or respiration after the swallow. Thin liquids via cup and straw were Unremarkable for dysphagia and / or aspiration at this time. Recommendations - Speech Evaluation, Impression/Plan Impression: The oral and pharyngeal swallow is adequate for po intake of pureed , soft and regular bite sized solids and thin liquids. Labial containment, mastication, bolus transport, and initiation of swallow were WNL. No coughing or changes in voicing to suggest penetration / aspiration at bedside at this time. Speech and language are WFL Engineer Internship Goals: Tolerate the least restrictive solid and liquid consistencies without s/s of penetration / aspiration. Short Term Goals: Tolerate regular solids and thin liquid consistencies without s/s of penetration / aspiration. Recommended Frequency for Therapy: Follow Up PRN - Dysphagia Impressions/Plan Swallowing Skills: Impaired Dysphagia Impressions: Minimal Impairment, Mild Impairment, Risk of Aspiration *Silent aspiration: cannot be R/O at bedside Dysphagia Treatment Plan: Safe Rate, 1/2 tsp. at a time, Elevate HOB during feed Dysphagia Evaluation Summary: Continue regular diabetic solids with thin liquids as tolerated. Provide oral care before and after meal meals. Crush meds for ease of swallowing. Results given verbally to hemodialysis charge nurse and PCP via chart. ADMINISTRATIVE COORDINATOR to follow up for diet tolerance. - Recommendations Diet Consistency: Regular, 1 - 2 Soft Items Medication Administration: Crushed with applesauce Liquids: Thin Liquids
[2019-09-18] MEDS ORDERED: INSULIN (NOVOLOG) ASPART 100 UNITS/ML 10ML VIAL ONE (21:17)
[2019-09-18] MEDS: INSULIN (LEVEMIR) 100 UNITS/ML UNITS SQ SCH (21:22)
[2019-09-18] MEDS: ATORVASTATIN CA 80 MG TABLET (FP) PO SCH (21:23)
[2019-09-19] MEDS: INSULIN SLIDING SCALE (NOVOLOG) 1 VIAL SQ SCH ×3 (06:11→22:17)
--- NOTE | 2019-09-19 08:30 | PN ---
Progress Note (short form) - Note Progress Note: Neurology CHIEF COMPLAINT: Right arm weakness HISTORY OF PRESENT ILLNESS: Patient is a 73 year old male with past medical history of HTN, HLD, IDDM, CAD on ASA/Plavix), multiple CVAs with residual RLE weakness and Right facial droop , presented to the ED due to sudden onset Right arm paralysis that started on day prior admission. Patient unsure what time exactly it happened. Patient was admitted in July 2019 for RLE weakness where he was treated for CVA. He was discharged home with a walker. Patient denied any recent illness, denied any trauma, denied headache, dizziness, fevers, chills, chest pain, SOB, abdominal pain, diarrhea, urinary symptoms. Head CT performed and demonstrated no acute pathology. Chronic left perinsular and frontoparietal infarcts. MRI of brain reviewed and showed acute left posterior frontal cortical and subcortical infarcts. MRA of brain also completed and demostrated Occlusion of left ICA. 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 Carotid ultrasound reviewed and demonstrated complete occlusion of left ICA, as mention before. Right arm ultrasound performed and showed no DVT. I informed him of the results. In conversation with patient, e indicated that he has not been taking aspirin and seemed to be confused that it is an [id number]-rwg-[id number] medication that does not require prescription. I discussed with him importance of antiplatelet medication compliance, again reiterated this today. With complete occlusion of the left internal carotid artery, not likely for surgical management and medical optimization required. Active Medications Aspirin (Ecotrin -) 81 mg PO DAILY [facility] Last Admin: 09/18/19 09:50 Dose: 81 mg Atorvastatin Calcium (Lipitor -) 80 mg PO HS [facility] Last Admin: 09/18/19 21:23 Dose: 80 mg Clopidogrel Bisulfate (Plavix -) 75 mg PO DAILY [facility] Last Admin: 09/18/19 09:50 Dose: 75 mg Enoxaparin Sodium (Lovenox -) 40 mg SQ DAILY [facility] Last Admin: 09/18/19 09:50 Dose: 40 mg Gabapentin (Neurontin -) 300 mg PO BID [facility] Last Admin: 09/18/19 21:24 Dose: 300 mg Insulin Aspart (Novolog Vial Sliding Scale -) 1 vial SQ [facility]; Protocol Last Admin: 09/19/19 06:11 Dose: Not Given Insulin Detemir (Levemir Vial) 10 units SQ HS [facility] Last Admin: 09/18/19 21:22 Dose: 10 unit PHYSICAL EXAMINATION Vital Signs Period Temp Pulse Resp BP Sys/Aguilar Pulse Ox Last 24 Hr 97.2 F-98.5 F 65-78 16-20 137-183/75-98 98-98 GENERAL: Awake, alert, and fully oriented, in no acute distress. HEAD: Normal with no signs of trauma. EYES: PERRLA, EOMI, sclera anicteric, conjunctiva clear. EARS, NOSE, THROAT: Dry mucous membranes. NECK: Normal range of motion, supple without lymphadenopathy, JVD, or masses. LUNGS: Breath sounds equal, clear to auscultation bilaterally. HEART: Regular rate and rhythm, normal S1 and S2 without murmur, rub or gallop. ABDOMEN: Soft, nontender, not distended, normoactive bowel sounds. MUSCULOSKELETAL: Normal passive ROM on all extremities UPPER EXTREMITIES: 2+ pulses, warm, well-perfused. No peripheral edema. LOWER EXTREMITIES: 2+ pulses, warm, well-perfused. No peripheral edema. NEUROLOGICAL: AAOx3, +Facial droop, Asymmetric smile, rest of CN grossly intact. Motor strength 0/5 on RUE, 5/5 LUE, 4/5 RLE, 5/5 LLE, sensation intact on all extremities. PSYCHIATRIC: Cooperative. Good eye contact. Appropriate mood and affect. SKIN: Warm, dry, normal turgor. CBCD WBC 5.2 K/mm3 (4.0-10.0) 09/18/19 06:25 RBC 4.74 M/mm3 (4.00-5.60) 09/18/19 06:25 Hgb 12.6 GM/dL (11.7-16.9) 09/18/19 06:25 Hct 37.5 % (35.4-49) 09/18/19 06:25 MCV 79.2 fl (80-96) L 09/18/19 06:25 MCHC 33.5 g/dl (32.0-35.9) 09/18/19 06:25 RDW 13.8 % (11.9-15.9) 09/18/19 06:25 Plt Count 219 K/MM3 (134-434) 09/18/19 06:25 MPV 8.8 fl (7.5-11.1) 09/18/19 06:25 CMP Sodium 140 mmol/L (136-145) 09/18/19 06:25 Potassium 3.5 mmol/L (3.5-5.1) 09/18/19 06:25 Chloride 107 mmol/L (98-107) 09/18/19 06:25 Carbon Dioxide 28 mmol/L (21-32) 09/18/19 06:25 Anion Gap 5 MMOL/L (8-16) L 09/18/19 06:25 BUN 14.1 mg/dL (7-18) 09/18/19 06:25 Creatinine 0.8 mg/dL (0.55-1.3) 09/18/19 06:25 Random Glucose 69 mg/dL (74-106) L 09/18/19 06:25 Calcium 9.2 mg/dL (8.5-10.1) 09/18/19 06:25 Total Bilirubin 0.5 mg/dL (0.2-1) 09/18/19 06:25 AST 9 U/L (15-37) L 09/18/19 06:25 ALT 21 U/L (13-61) 09/18/19 06:25 Alkaline Phosphatase 84 U/L (45-117) 09/18/19 06:25 Total Protein 6.2 g/dl (6.4-8.2) L 09/18/19 06:25 Albumin 3.2 g/dl (3.4-5.0) L 09/18/19 06:25 CARDIAC ENZYMES Creatine Kinase 221 U/L (26-308) 09/17/19 15:00 Troponin I 0.05 ng/ml (0.00-0.05) 09/17/19 15:00 ASSESSMENT/PLAN: Patient is a 73 year old male with past medical history of HTN, HLD, IDDM, CAD on ASA/Plavix), multiple CVAs with residual RLE weakness and Right facial droop , presented to the ED due to sudden onset Right arm paralysis that started on day prior admission. Patient unsure what time exactly it happened. Patient was admitted in July 2019 for RLE weakness where he was treated for CVA. He was discharged home with a walker. Patient denied any recent illness, denied any trauma, denied headache, dizziness, fevers, chills, chest pain, SOB, abdominal pain, diarrhea, urinary symptoms. Head CT performed and demonstrated no acute pathology. Chronic left perinsular and frontoparietal infarcts. MRI of brain reviewed and showed acute left posterior frontal cortical and subcortical infarcts. MRA of brain also completed and demostrated Occlusion of left ICA. 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 Carotid ultrasound reviewed and demonstrated complete occlusion of left ICA, as mention before. Right arm ultrasound performed and showed no DVT. I informed him of the results. In conversation with patient, e indicated that he has not been taking aspirin and seemed to be confused that it is an [id number]-yogozzw medication that does not require prescription. I discussed with him importance of antiplatelet medication compliance. With complete occlusion of the left internal carotid artery, not likely for surgical management and medical optimization required. Monitor blood pressure, maintain normotensive range, monitor lipid profile, continue statin. Physical therapy as tolerated, consider short-term rehabilitation. monitor diabetes, continue insulin. Medication compliance discussed again
[2019-09-19] MEDS: ASPIRIN COATED 81 MG TABLET.EC PO SCH (11:21)
[2019-09-19] MEDS: ENOXAPARIN NA (PORCINE) 40 MG/0.4 ML DISP.SYRIN SQ SCH (11:21)
[2019-09-19] MEDS: CLOPIDOGREL BISULFATE 75 MG TABLET (FP) PO SCH (11:21)
[2019-09-19] MEDS: GABAPENTIN 300 MG CAPSULE PO SCH ×2 (11:21→21:06)
--- NOTE | 2019-09-19 12:15 | PN ---
Progress Note, MANAGER UROLOGY - Note Progress Note: Selected Entries 09/19/19 09/19/19 09/19/19 01:00 06:00 10:24 Breakfast 75% Diet Tolerated Well Temperature 97.6 F 97.2 F L Laboratory Tests 09/18/19 06:25 WBC 5.2 On reg diet/thin liquids
--- NOTE | 2019-09-19 12:47 | PN ---
Physical Exam: Subjective: Patient examined at bedside, no new complaints, a bit upset about RUE paralysis provided support, otherwise awaiting GILLIAN placement and PT. Objective: PE GA comfortable, AAox3, speaking in full sentences HEENT NC/AT, R nasolabial fold flattening, R facial droop (chronic), MMM, neck supple, EOMI, MISAEL Chest CTAB, no crackles or wheezing CVS S1, S2+, RRR Abd Soft, NT, ND, BS+ Ext No LE edema, no calf tenderness Neuro 0/5 strength RUE, 5/5 LUE, sensation intact and equal UE bilaterally, good radial pulses b/l, 4/5 strength RLE, 5/5 strength LLE sensation intact and equal LE b/l Psych appropriate mood and affect, answers to questions Vital Signs - 24 hr 09/18/19 09/18/19 09/18/19 14:00 17:00 20:10 Temperature 97.9 F 97.9 F 98.5 F Pulse Rate 67 75 78 Respiratory 20 20 18 Rate Blood Pressure 183/75 H 149/87 137/84 O2 Sat by Pulse 98 Oximetry (%) 09/18/19 09/19/19 09/19/19 21:45 01:00 06:00 Temperature 97.6 F 97.2 F L Pulse Rate 68 67 Respiratory 18 17 Rate Blood Pressure 148/90 160/93 O2 Sat by Pulse 98 Oximetry (%) Laboratory Results - last 24 hr 09/18/19 09/18/19 09/18/19 06:25 06:25 16:42 Platelet Estimate Normal Platelet Comment Present POC Glucometer 139 Triglycerides 56 Cholesterol 148 HDL Cholesterol 37 L 09/18/19 09/19/19 21:09 06:07 Platelet Estimate Platelet Comment POC Glucometer 229 130 Triglycerides Cholesterol HDL Cholesterol Home Medications Medication Instructions Recorded Aspirin [Aspirin EC] 1 tab PO DAILY 07/08/19 Clopidogrel Bisulfate [Clopidogrel] 1 tab PO DAILY 07/08/19 Losartan Potassium 1 tab PO DAILY 07/08/19 Metformin HCl [Glucophage] 500 mg PO BID 07/08/19 Amlodipine Besylate [Norvasc -] 10 mg PO DAILY 09/17/19 Sertraline HCl 25 mg PO DAILY 09/17/19 Current Medications Generic Name Dose Route Start Last Admin Trade Name Freq PRN Reason Stop Dose Admin Aspirin 81 mg 09/18/19 10:00 09/19/19 11:21 Ecotrin - PO 81 mg DAILY T[facility] Administration Atorvastatin Calcium 80 mg 09/17/19 22:00 09/18/19 21:23 Lipitor - PO 80 mg HS TAMIKO Administration Clopidogrel Bisulfate 75 mg 09/18/19 10:00 09/19/19 11:21 Plavix - PO 75 mg DAILY T[facility] Administration Enoxaparin Sodium 40 mg 09/18/19 10:00 09/19/19 11:21 Lovenox - SQ 40 mg DAILY [facility] Administration Gabapentin 300 mg 09/17/19 22:00 09/19/19 11:21 Neurontin - PO 300 mg BID T[facility]KO Administration Insulin Aspart 1 vial 09/17/19 22:00 09/19/19 06:11 Novolog Vial Sliding Scale - SQ Not Given ACHS T[facility]IKO Protocol Insulin Detemir 10 units 09/18/19 22:00 09/18/19 21:22 Levemir Vial SQ 10 unit HS T[facility]IKO Administration A/p: 73 AA male h/o multiple CVAs with chronic RLE weakness and R facial droop, HTN, HLD, IDDM, admitted for dense RUE paralysis. CT-brain not showing acute CVA, but MRI showing acute L posterior cortical and subcortical infarct, and MRA showing complete occlusion of L ICA. RUE dense paralysis Acute L posterior cortical and subcortical CVA on MRI, MRA showing L ICA occlusion Cont. secondary stroke protocol, ASA/Statin, restart BP meds as CVA exceeded 48 hour window (window for permissive HTN) PT evaluation will likely need GILLIAN Cont. neurochecks, will obtain new Echo in view of NEW CVA continue tele for now Neurology consult: Dr Valentine HTN restart BP agents IDDM ISS, basal insulin as needed strict glycemic management HLD high intensity statin DVT ppx: Lovenox SC Cont. tele pending Echo Visit type - Emergency Visit Emergency Visit: Yes ED Registration Date: 09/17/19 Care time: The patient presented to the Emergency Department on the above date and was hospitalized for further evaluation of their emergent condition. - New Patient This patient is new to me today: No - Critical Care Critical Care patient: No - Discharge Referral Referred to [facility] Med P.C.: No
[2019-09-19] MEDS: amLODIPine BESYLATE 10 MG TABLET (FP) PO SCH (12:56)
[2019-09-19] MEDS: ATORVASTATIN CA 80 MG TABLET (FP) PO SCH (21:06)
[2019-09-19] MEDS: INSULIN (LEVEMIR) 100 UNITS/ML UNITS SQ SCH (22:15)
[2019-09-20] MEDS: INSULIN SLIDING SCALE (NOVOLOG) 1 VIAL SQ SCH ×5 (06:52→21:34)
[2019-09-20] MEDS: ASPIRIN COATED 81 MG TABLET.EC PO SCH (10:33)
[2019-09-20] MEDS: CLOPIDOGREL BISULFATE 75 MG TABLET (FP) PO SCH (10:33)
[2019-09-20] MEDS: GABAPENTIN 300 MG CAPSULE PO SCH ×2 (10:33→21:31)
[2019-09-20] MEDS: amLODIPine BESYLATE 10 MG TABLET (FP) PO SCH (10:33)
[2019-09-20] MEDS: ENOXAPARIN NA (PORCINE) 40 MG/0.4 ML DISP.SYRIN SQ SCH (10:33)
--- NOTE | 2019-09-20 10:51 | PN ---
Progress Note (short form) - Note Progress Note: Neurology CHIEF COMPLAINT: Right arm weakness HISTORY OF PRESENT ILLNESS: Patient is a 73 year old male with past medical history of HTN, HLD, IDDM, CAD on ASA/Plavix), multiple CVAs with residual RLE weakness and Right facial droop , presented to the ED due to sudden onset Right arm paralysis that started on day prior admission. Patient unsure what time exactly it happened. Patient was admitted in July 2019 for RLE weakness where he was treated for CVA. He was discharged home with a walker. Patient denied any recent illness, denied any trauma, denied headache, dizziness, fevers, chills, chest pain, SOB, abdominal pain, diarrhea, urinary symptoms. Head CT performed and demonstrated no acute pathology. Chronic left perinsular and frontoparietal infarcts. MRI of brain reviewed and showed acute left posterior frontal cortical and subcortical infarcts. MRA of brain also completed and demostrated Occlusion of left ICA. 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 Carotid ultrasound reviewed and demonstrated complete occlusion of left ICA, as mention before. Right arm ultrasound performed and showed no DVT. I informed him of the results. In conversation with patient, he indicated that he has not been taking aspirin and seemed to be confused that it is an lqlc-ubi-[id number] medication that does not require prescription. I discussed with him importance of antiplatelet medication compliance, again reiterated this today. With complete occlusion of the left internal carotid artery, not likely for surgical management and medical optimization required. Does show some improvement in RUE movement today , still at best 3/5 but better than prior and speech improved as well. Awaiting placement. Active Medications Amlodipine Besylate (Norvasc -) 10 mg PO DAILY [facility] Last Admin: 09/20/19 10:33 Dose: 10 mg Aspirin (Ecotrin -) 81 mg PO DAILY [facility] Last Admin: 09/20/19 10:33 Dose: 81 mg Atorvastatin Calcium (Lipitor -) 80 mg PO HS [facility] Last Admin: 09/19/19 21:06 Dose: 80 mg Clopidogrel Bisulfate (Plavix -) 75 mg PO DAILY [facility] Last Admin: 09/20/19 10:33 Dose: 75 mg Enoxaparin Sodium (Lovenox -) 40 mg SQ DAILY [facility] Last Admin: 09/20/19 10:33 Dose: 40 mg Gabapentin (Neurontin -) 300 mg PO BID [facility] Last Admin: 09/20/19 10:33 Dose: 300 mg Insulin Aspart (Novolog Vial Sliding Scale -) 1 vial SQ [facility]; Protocol Last Admin: 09/20/19 06:58 Dose: 2 units Insulin Detemir (Levemir Vial) 10 units SQ [facility] Last Admin: 09/19/19 22:15 Dose: 10 unit PHYSICAL EXAMINATION Vital Signs Period Temp Pulse Resp BP Sys/Aguilar Pulse Ox Last 24 Hr 97.8 F-98 F 72-75 18-18 135-159/75-84 98 GENERAL: Awake, alert, and fully oriented, in no acute distress. HEAD: Normal with no signs of trauma. EYES: PERRLA, EOMI, sclera anicteric, conjunctiva clear. EARS, NOSE, THROAT: Dry mucous membranes. NECK: Normal range of motion, supple without lymphadenopathy, JVD, or masses. LUNGS: Breath sounds equal, clear to auscultation bilaterally. HEART: Regular rate and rhythm, normal S1 and S2 without murmur, rub or gallop. ABDOMEN: Soft, nontender, not distended, normoactive bowel sounds. MUSCULOSKELETAL: Normal passive ROM on all extremities UPPER EXTREMITIES: 2+ pulses, warm, well-perfused. No peripheral edema. LOWER EXTREMITIES: 2+ pulses, warm, well-perfused. No peripheral edema. NEUROLOGICAL: AAOx3, +Facial droop, Asymmetric smile, rest of CN grossly intact. Motor strength 3/5 on RUE, 5/5 LUE, 4/5 RLE, 5/5 LLE, sensation intact on all extremities. PSYCHIATRIC: Cooperative. Good eye contact. Appropriate mood and affect. SKIN: Warm, dry, normal turgor. CBCD WBC 5.2 K/mm3 (4.0-10.0) 09/18/19 06:25 RBC 4.74 M/mm3 (4.00-5.60) 09/18/19 06:25 Hgb 12.6 GM/dL (11.7-16.9) 09/18/19 06:25 Hct 37.5 % (35.4-49) 09/18/19 06:25 MCV 79.2 fl (80-96) L 09/18/19 06:25 MCHC 33.5 g/dl (32.0-35.9) 09/18/19 06:25 RDW 13.8 % (11.9-15.9) 09/18/19 06:25 Plt Count 219 K/MM3 (134-434) 09/18/19 06:25 MPV 8.8 fl (7.5-11.1) 09/18/19 06:25 CMP Sodium 140 mmol/L (136-145) 09/18/19 06:25 Potassium 3.5 mmol/L (3.5-5.1) 09/18/19 06:25 Chloride 107 mmol/L (98-107) 09/18/19 06:25 Carbon Dioxide 28 mmol/L (21-32) 09/18/19 06:25 Anion Gap 5 MMOL/L (8-16) L 09/18/19 06:25 BUN 14.1 mg/dL (7-18) 09/18/19 06:25 Creatinine 0.8 mg/dL (0.55-1.3) 09/18/19 06:25 Random Glucose 69 mg/dL (74-106) L 09/18/19 06:25 Calcium 9.2 mg/dL (8.5-10.1) 09/18/19 06:25 Total Bilirubin 0.5 mg/dL (0.2-1) 09/18/19 06:25 AST 9 U/L (15-37) L 09/18/19 06:25 ALT 21 U/L (13-61) 09/18/19 06:25 Alkaline Phosphatase 84 U/L (45-117) 09/18/19 06:25 Total Protein 6.2 g/dl (6.4-8.2) L 09/18/19 06:25 Albumin 3.2 g/dl (3.4-5.0) L 09/18/19 06:25 CARDIAC ENZYMES Creatine Kinase 221 U/L (26-308) 09/17/19 15:00 Troponin I 0.05 ng/ml (0.00-0.05) 09/17/19 15:00 ASSESSMENT/PLAN: Patient is a 73 year old male with past medical history of HTN, HLD, IDDM, CAD on ASA/Plavix), multiple CVAs with residual RLE weakness and Right facial droop , presented to the ED due to sudden onset Right arm paralysis that started on day prior admission. Patient unsure what time exactly it happened. Patient was admitted in July 2019 for RLE weakness where he was treated for CVA. He was discharged home with a walker. Patient denied any recent illness, denied any trauma, denied headache, dizziness, fevers, chills, chest pain, SOB, abdominal pain, diarrhea, urinary symptoms. Head CT performed and demonstrated no acute pathology. Chronic left perinsular and frontoparietal infarcts. MRI of brain reviewed and showed acute left posterior frontal cortical and subcortical infarcts. MRA of brain also completed and demostrated Occlusion of left ICA. 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 Carotid ultrasound reviewed and demonstrated complete occlusion of left ICA, as mention before. Right arm ultrasound performed and showed no DVT. I informed him of the results. In conversation with patient, e indicated that he has not been taking aspirin and seemed to be confused that it is an kurq-gug-xoaykza medication that does not require prescription. I discussed with him importance of antiplatelet medication compliance. With complete occlusion of the left internal carotid artery, not likely for surgical management and medical optimization required. Monitor blood pressure, maintain normotensive range, monitor lipid profile, remains on statin, LDL cancelled, consider rechecking. Physical therapy as tolerated, consider short-term rehabilitation. monitor diabetes, continue insulin. Medication compliance discussed again
--- NOTE | 2019-09-20 18:27 | PN ---
Progress Note (short form) - Note Progress Note: c/o persistent RUE weakness, no real improvement since arrival. deneis Cp, SOB, fever, chills, N/V/C/D Current Medications Generic Name Dose Route Start Last Admin Trade Name Jessica PRN Reason Stop Dose Admin Amlodipine Besylate 10 mg 09/19/19 13:00 09/20/19 10:33 Norvasc - PO 10 mg DAILY TAMIKO Administration Aspirin 81 mg 09/18/19 10:00 09/20/19 10:33 Ecotrin - PO 81 mg DAILY T[facility]KO Administration Atorvastatin Calcium 80 mg 09/17/19 22:00 09/19/19 21:06 Lipitor - PO 80 mg HS TAM[facility]KO Administration Clopidogrel Bisulfate 75 mg 09/18/19 10:00 09/20/19 10:33 Plavix - PO 75 mg DAILY T[facility]KO Administration Enoxaparin Sodium 40 mg 09/18/19 10:00 09/20/19 10:33 Lovenox - SQ 40 mg DAILY T[facility] Administration Gabapentin 300 mg 09/17/19 22:00 09/20/19 10:33 Neurontin - PO 300 mg BID TAMIKO Administration Insulin Aspart 1 vial 09/17/19 22:00 09/20/19 17:46 Novolog Vial Sliding Scale - SQ 2 units ACHS TAMIKO Administration Protocol Insulin Detemir 10 units 09/18/19 22:00 09/19/19 22:15 Levemir Vial SQ 10 unit HS TAMIKO Administration Last Vital Signs Temp Pulse Resp BP Pulse Ox 98.4 F 92 H 20 130/79 98 09/20/19 14:00 09/20/19 14:00 09/20/19 09:00 09/20/19 14:00 09/20/19 09:00 General NAD CV S1 S2 RRR no murmur/rub/gallop Lungs CTA B/L no wheezing/rales/rhonchi Abdomen soft NEuro +R facial droop, remaining CN grossly intact, RUE weak compared to L. sensation grossly intact A/P 73yo M wtih PMH HTN, dyslipidemia, CAD on asa/plavix, DM with recent CVA earlier this year with residual RLE weakness and R facial droop presented to the ER with RUE numbness 1. Acute CVA- likely due to non-compliance. appears patient was not taking asa as instructed since he did not have a prescription. re-educated on importance of medication compliance. needs aggressive PT at this time which patient is agreeable to. tight monitoring of BP, sugars and lipids. on asa/plavix/statin 2. DM- A1c 10.9. sugars well controlled with levemir and iss. cont at this time 3. HTN- well controlled. cont home medications 4. CAD on asa/plavix 5. DVT ppx- lovenox 6. medically optimized for discharge at this time. awaiting insurance auth and bed availability. pts 1st preference [facility] cardiac [facility] Visit type - Emergency Visit Emergency Visit: Yes ED Registration Date: 09/17/19 Care time: The patient presented to the Emergency Department on the above date and was hospitalized for further evaluation of their emergent condition. - New Patient This patient is new to me today: Yes Date on this admission: 09/20/19 - Critical Care Critical Care patient: No - Discharge Referral Referred to [facility] Med P.C.: No
[2019-09-20] MEDS ORDERED: INSULIN (NOVOLOG) ASPART 100 UNITS/ML 10ML VIAL ONE (21:26)
[2019-09-20] MEDS: ATORVASTATIN CA 80 MG TABLET (FP) PO SCH (21:31)
[2019-09-20] MEDS: INSULIN (LEVEMIR) 100 UNITS/ML UNITS SQ SCH (21:34)
[2019-09-21] MEDS: INSULIN SLIDING SCALE (NOVOLOG) 1 VIAL SQ SCH ×4 (06:15→21:07)
[2019-09-21] MEDS ORDERED: INSULIN (NOVOLOG) ASPART 100 UNITS/ML 10ML VIAL ONE (08:43)
[2019-09-21] MEDS ORDERED: PT OWN MED DRAWER 7, Y5N ONE (08:44)
[2019-09-21] MEDS: GABAPENTIN 300 MG CAPSULE PO SCH ×2 (10:06→21:06)
[2019-09-21] MEDS: ASPIRIN COATED 81 MG TABLET.EC PO SCH (10:06)
[2019-09-21] MEDS: amLODIPine BESYLATE 10 MG TABLET (FP) PO SCH (10:07)
[2019-09-21] MEDS: ENOXAPARIN NA (PORCINE) 40 MG/0.4 ML DISP.SYRIN SQ SCH (10:07)
[2019-09-21] MEDS: CLOPIDOGREL BISULFATE 75 MG TABLET (FP) PO SCH (10:08)
--- NOTE | 2019-09-21 10:31 | PN ---
Progress Note (short form) - Note Progress Note: Neurology CHIEF COMPLAINT: Right arm weakness HISTORY OF PRESENT ILLNESS: Patient is a 73 year old male with past medical history of HTN, HLD, IDDM, CAD on ASA/Plavix), multiple CVAs with residual RLE weakness and Right facial droop , presented to the ED due to sudden onset Right arm paralysis that started on day prior admission. Patient unsure what time exactly it happened. Patient was admitted in July 2019 for RLE weakness where he was treated for CVA. He was discharged home with a walker. Patient denied any recent illness, denied any trauma, denied headache, dizziness, fevers, chills, chest pain, SOB, abdominal pain, diarrhea, urinary symptoms. Head CT performed and demonstrated no acute pathology. Chronic left perinsular and frontoparietal infarcts. MRI of brain reviewed and showed acute left posterior frontal cortical and subcortical infarcts. MRA of brain also completed and demostrated Occlusion of left ICA. 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 Carotid ultrasound reviewed and demonstrated complete occlusion of left ICA, as mention before. Right arm ultrasound performed and showed no DVT. I informed him of the results. In conversation with patient, he indicated that he has not been taking aspirin and seemed to be confused that it is an [id number] medication that does not require prescription. I discussed with him importance of antiplatelet medication compliance, again reiterated this today. With complete occlusion of the left internal carotid artery, not likely for surgical management and medical optimization required. Does show some improvement in RUE movement today , still at best 3/5 but better than prior and speech improved as well. Awaiting placement. reviewed note from hospitalist, insurance process occurring for patients placement. His first choice is [facility] for rehabilitation. Active Medications Amlodipine Besylate (Norvasc -) 10 mg PO DAILY [facility] Last Admin: 09/21/19 10:07 Dose: 10 mg Aspirin (Ecotrin -) 81 mg PO DAILY [facility] Last Admin: 09/21/19 10:06 Dose: 81 mg Atorvastatin Calcium (Lipitor -) 80 mg PO HS [facility] Last Admin: 09/20/19 21:31 Dose: 80 mg Clopidogrel Bisulfate (Plavix -) 75 mg PO DAILY [facility] Last Admin: 09/21/19 10:08 Dose: 75 mg Enoxaparin Sodium (Lovenox -) 40 mg SQ DAILY [facility] Last Admin: 09/21/19 10:07 Dose: 40 mg Gabapentin (Neurontin -) 300 mg PO BID [facility] Last Admin: 09/21/19 10:06 Dose: 300 mg Insulin Aspart (Novolog Vial Sliding Scale -) 1 vial SQ ACHS [facility]; Protocol Last Admin: 09/21/19 06:15 Dose: Not Given Insulin Detemir (Levemir Vial) 10 units SQ HS [facility] Last Admin: 09/20/19 21:34 Dose: 10 unit PHYSICAL EXAMINATION Vital Signs Period Temp Pulse Resp BP Sys/Aguilar Pulse Ox Last 24 Hr 97.7 F-98.5 F 72-98 17-20 105-162/60-94 97 GENERAL: Awake, alert, and fully oriented, in no acute distress. HEAD: Normal with no signs of trauma. EYES: PERRLA, EOMI, sclera anicteric, conjunctiva clear. EARS, NOSE, THROAT: Dry mucous membranes. NECK: Normal range of motion, supple without lymphadenopathy, JVD, or masses. LUNGS: Breath sounds equal, clear to auscultation bilaterally. HEART: Regular rate and rhythm, normal S1 and S2 without murmur, rub or gallop. ABDOMEN: Soft, nontender, not distended, normoactive bowel sounds. MUSCULOSKELETAL: Normal passive ROM on all extremities UPPER EXTREMITIES: 2+ pulses, warm, well-perfused. No peripheral edema. LOWER EXTREMITIES: 2+ pulses, warm, well-perfused. No peripheral edema. NEUROLOGICAL: AAOx3, +Facial droop, Asymmetric smile, rest of CN grossly intact. Motor strength 3/5 on RUE, 5/5 LUE, 4/5 RLE, 5/5 LLE, sensation intact on all extremities. PSYCHIATRIC: Cooperative. Good eye contact. Appropriate mood and affect. SKIN: Warm, dry, normal turgor. CBCD WBC 5.2 K/mm3 (4.0-10.0) 09/18/19 06:25 RBC 4.74 M/mm3 (4.00-5.60) 09/18/19 06:25 Hgb 12.6 GM/dL (11.7-16.9) 09/18/19 06:25 Hct 37.5 % (35.4-49) 09/18/19 06:25 MCV 79.2 fl (80-96) L 09/18/19 06:25 MCHC 33.5 g/dl (32.0-35.9) 09/18/19 06:25 RDW 13.8 % (11.9-15.9) 09/18/19 06:25 Plt Count 219 K/MM3 (134-434) 09/18/19 06:25 MPV 8.8 fl (7.5-11.1) 09/18/19 06:25 CMP Sodium 140 mmol/L (136-145) 09/18/19 06:25 Potassium 3.5 mmol/L (3.5-5.1) 09/18/19 06:25 Chloride 107 mmol/L (98-107) 09/18/19 06:25 Carbon Dioxide 28 mmol/L (21-32) 09/18/19 06:25 Anion Gap 5 MMOL/L (8-16) L 09/18/19 06:25 BUN 14.1 mg/dL (7-18) 09/18/19 06:25 Creatinine 0.8 mg/dL (0.55-1.3) 09/18/19 06:25 Random Glucose 69 mg/dL (74-106) L 09/18/19 06:25 Calcium 9.2 mg/dL (8.5-10.1) 09/18/19 06:25 Total Bilirubin 0.5 mg/dL (0.2-1) 09/18/19 06:25 AST 9 U/L (15-37) L 09/18/19 06:25 ALT 21 U/L (13-61) 09/18/19 06:25 Alkaline Phosphatase 84 U/L (45-117) 09/18/19 06:25 Total Protein 6.2 g/dl (6.4-8.2) L 09/18/19 06:25 Albumin 3.2 g/dl (3.4-5.0) L 09/18/19 06:25 CARDIAC ENZYMES Creatine Kinase 221 U/L (26-308) 09/17/19 15:00 Troponin I 0.05 ng/ml (0.00-0.05) 09/17/19 15:00 ASSESSMENT/PLAN: Patient is a 73 year old male with past medical history of HTN, HLD, IDDM, CAD on ASA/Plavix), multiple CVAs with residual RLE weakness and Right facial droop , presented to the ED due to sudden onset Right arm paralysis that started on day prior admission. Patient unsure what time exactly it happened. Patient was admitted in July 2019 for RLE weakness where he was treated for CVA. He was discharged home with a walker. Patient denied any recent illness, denied any trauma, denied headache, dizziness, fevers, chills, chest pain, SOB, abdominal pain, diarrhea, urinary symptoms. Head CT performed and demonstrated no acute pathology. Chronic left perinsular and frontoparietal infarcts. MRI of brain reviewed and showed acute left posterior frontal cortical and subcortical infarcts. MRA of brain also completed and demostrated Occlusion of left ICA. 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 Carotid ultrasound reviewed and demonstrated complete occlusion of left ICA, as mention before. Right arm ultrasound performed and showed no DVT. I informed him of the results. In conversation with patient, e indicated that he has not been taking aspirin and seemed to be confused that it is an [id number] medication that does not require prescription. I discussed with him importance of antiplatelet medication compliance. With complete occlusion of the left internal carotid artery, not likely for surgical management and medical optimization required. Monitor blood pressure, maintain normotensive range, monitor lipid profile, remains on statin, LDL cancelled, consider rechecking. Physical therapy as tolerated, consider short-term rehabilitation. monitor diabetes, continue insulin. Medication compliance discussed again. His first choice is [facility] for rehabilitation, follow up case mgmt.
--- NOTE | 2019-09-21 18:37 | PN ---
Progress Note, Physician History of Present Illness: seen and examined at bedside. no complaints. awaiting placement. no fever chills chest pain or SOB. tolerating diet. - Current Medication List Current Medications: Active Medications Amlodipine Besylate (Norvasc -) 10 mg PO DAILY [facility] Last Admin: 09/21/19 10:07 Dose: 10 mg Aspirin (Ecotrin -) 81 mg PO DAILY [facility] Last Admin: 09/21/19 10:06 Dose: 81 mg Atorvastatin Calcium (Lipitor -) 80 mg PO [facility] Last Admin: 09/20/19 21:31 Dose: 80 mg Clopidogrel Bisulfate (Plavix -) 75 mg PO DAILY [facility] Last Admin: 09/21/19 10:08 Dose: 75 mg Enoxaparin Sodium (Lovenox -) 40 mg SQ DAILY [facility] Last Admin: 09/21/19 10:07 Dose: 40 mg Gabapentin (Neurontin -) 300 mg PO BID [facility] Last Admin: 09/21/19 10:06 Dose: 300 mg Insulin Aspart (Novolog Vial Sliding Scale -) 1 vial SQ [facility]; Protocol Last Admin: 09/21/19 17:18 Dose: Not Given Insulin Detemir (Levemir Vial) 10 units SQ [facility] Last Admin: 09/20/19 21:34 Dose: 10 unit - Objective Vital Signs: Vital Signs Temperature 97.9 F 09/21/19 14:00 Pulse Rate 75 09/21/19 14:00 Respiratory Rate 18 09/21/19 10:04 Blood Pressure 141/82 09/21/19 14:00 O2 Sat by Pulse Oximetry (%) 97 09/21/19 10:04 Constitutional: Yes: Well Nourished, No Distress, Calm Eyes: Yes: Conjunctiva Clear Neck: Yes: Supple Cardiovascular: Yes: Regular Rate and Rhythm Respiratory: Yes: Other (faint bibasilar crackles otherwise clear bilaterally) Musculoskeletal: Yes: Muscle Weakness (RUE weak when compared to left) Neurological: Yes: Alert, Oriented, Facial Droop (slight right sided) ...Motor Strength: RUE (decreased about 3/5) Labs: CBC, BMP 09/18/19 06:25 09/18/19 06:25 INR, PTT INR 0.98 (0.83-1.09) 09/17/19 15:00 Impression/Plan Impression/Plan: 73yo M wtih PMH HTN, dyslipidemia, CAD on asa/plavix, DM with recent CVA earlier this year with residual RLE weakness and R facial droop presented to the ER with RUE numbness Acute CVA likely due to non-compliance. wasn't taking aspirin because he didnt have Rx SNF for needs aggressive PT continue on asa/plavix/statin DM- A1c 10.9. controlled at this time continue current regimen HTN well controlled continue current regimen CAD continue on asa/plavix and statin DVT ppx- lovenox awaiting insurance auth and bed availability Visit type - Emergency Visit Emergency Visit: Yes ED Registration Date: 09/17/19 Care time: The patient presented to the Emergency Department on the above date and was hospitalized for further evaluation of their emergent condition. - New Patient This patient is new to me today: Yes Date on this admission: 09/21/19 - Critical Care Critical Care patient: No
[2019-09-21] MEDS: ATORVASTATIN CA 80 MG TABLET (FP) PO SCH (21:06)
[2019-09-21] MEDS: INSULIN (LEVEMIR) 100 UNITS/ML UNITS SQ SCH (21:06)
[2019-09-22] MEDS: POLYETHYLENE GLYCOL 3350 119 GM BTL PO SCH ×2 (03:21→09:37)
[2019-09-22] MEDS: DOCUSATE SODIUM 100 MG CAPSULE (FP) PO SCH ×2 (03:21→09:32)
[2019-09-22] MEDS: INSULIN SLIDING SCALE (NOVOLOG) 1 VIAL SQ SCH ×4 (06:54→20:57)
[2019-09-22] MEDS: ASPIRIN COATED 81 MG TABLET.EC PO SCH (09:32)
[2019-09-22] MEDS: CLOPIDOGREL BISULFATE 75 MG TABLET (FP) PO SCH (09:32)
[2019-09-22] MEDS: GABAPENTIN 300 MG CAPSULE PO SCH ×2 (09:32→20:58)
[2019-09-22] MEDS: amLODIPine BESYLATE 10 MG TABLET (FP) PO SCH (09:32)
[2019-09-22] MEDS: ENOXAPARIN NA (PORCINE) 40 MG/0.4 ML DISP.SYRIN SQ SCH (09:33)
--- NOTE | 2019-09-22 10:39 | PN ---
Progress Note (short form) - Note Progress Note: Neurology CHIEF COMPLAINT: Right arm weakness HISTORY OF PRESENT ILLNESS: Patient is a 73 year old male with past medical history of HTN, HLD, IDDM, CAD on ASA/Plavix), multiple CVAs with residual RLE weakness and Right facial droop , presented to the ED due to sudden onset Right arm paralysis that started on day prior admission. Patient unsure what time exactly it happened. Patient was admitted in July 2019 for RLE weakness where he was treated for CVA. He was discharged home with a walker. Patient denied any recent illness, denied any trauma, denied headache, dizziness, fevers, chills, chest pain, SOB, abdominal pain, diarrhea, urinary symptoms. Head CT performed and demonstrated no acute pathology. Chronic left perinsular and frontoparietal infarcts. MRI of brain reviewed and showed acute left posterior frontal cortical and subcortical infarcts. MRA of brain also completed and demostrated Occlusion of left ICA. 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 Carotid ultrasound reviewed and demonstrated complete occlusion of left ICA, as mention before. Right arm ultrasound performed and showed no DVT. I informed him of the results. In conversation with patient, he indicated that he has not been taking aspirin and seemed to be confused that it is an [id number] medication that does not require prescription. I discussed with him importance of antiplatelet medication compliance, again reiterated this today. With complete occlusion of the left internal carotid artery, not likely for surgical management and medical optimization required. Does show some improvement in RUE movement today , still at best 3/5 but better than prior and speech improved as well. Awaiting placement. reviewed note from hospitalist, insurance process occurring for patients placement. His first choice is [facility] for rehabilitation. Per notes, he has been accepted to [facility], no objection to rehab which may provide benefit. Active Medications Amlodipine Besylate (Norvasc -) 10 mg PO DAILY [facility] Last Admin: 09/22/19 09:32 Dose: 10 mg Aspirin (Ecotrin -) 81 mg PO DAILY [facility] Last Admin: 09/22/19 09:32 Dose: 81 mg Atorvastatin Calcium (Lipitor -) 80 mg PO [facility] Clopidogrel Bisulfate (Plavix -) 75 mg PO DAILY [facility] Last Admin: 09/22/19 09:32 Dose: 75 mg Docusate Sodium (Colace -) 100 mg PO DAILY [facility] Last Admin: 09/22/19 09:32 Dose: 100 mg Enoxaparin Sodium (Lovenox -) 40 mg SQ DAILY [facility] Last Admin: 09/22/19 09:33 Dose: 40 mg Gabapentin (Neurontin -) 300 mg PO BID [facility] Last Admin: 09/22/19 09:32 Dose: 300 mg Insulin Aspart (Novolog Vial Sliding Scale -) 1 vial SQ [facility]; Protocol Last Admin: 09/22/19 06:54 Dose: Not Given Insulin Detemir (Levemir Vial) 10 units SQ [facility] Polyethylene Glycol (Miralax (For Daily Use) -) 17 gm PO DAILY [facility] Last Admin: 09/22/19 09:37 Dose: 17 grams Senna (Senna -) 1 tab PO [facility] PHYSICAL EXAMINATION Vital Signs Period Temp Pulse Resp BP Sys/Aguilar Pulse Ox Last 24 Hr 97.6 F-98.1 F 70-84 17-20 138-158/79-92 95-97 GENERAL: Awake, alert, and fully oriented, in no acute distress. HEAD: Normal with no signs of trauma. EYES: PERRLA, EOMI, sclera anicteric, conjunctiva clear. EARS, NOSE, THROAT: Dry mucous membranes. NECK: Normal range of motion, supple without lymphadenopathy, JVD, or masses. LUNGS: Breath sounds equal, clear to auscultation bilaterally. HEART: Regular rate and rhythm, normal S1 and S2 without murmur, rub or gallop. ABDOMEN: Soft, nontender, not distended, normoactive bowel sounds. MUSCULOSKELETAL: Normal passive ROM on all extremities UPPER EXTREMITIES: 2+ pulses, warm, well-perfused. No peripheral edema. LOWER EXTREMITIES: 2+ pulses, warm, well-perfused. No peripheral edema. NEUROLOGICAL: AAOx3, +Facial droop, Asymmetric smile, rest of CN grossly intact. Motor strength 3/5 on RUE, 5/5 LUE, 4/5 RLE, 5/5 LLE, sensation intact on all extremities. PSYCHIATRIC: Cooperative. Good eye contact. Appropriate mood and affect. SKIN: Warm, dry, normal turgor. CBCD WBC 5.2 K/mm3 (4.0-10.0) 09/18/19 06:25 RBC 4.74 M/mm3 (4.00-5.60) 09/18/19 06:25 Hgb 12.6 GM/dL (11.7-16.9) 09/18/19 06:25 Hct 37.5 % (35.4-49) 09/18/19 06:25 MCV 79.2 fl (80-96) L 09/18/19 06:25 MCHC 33.5 g/dl (32.0-35.9) 09/18/19 06:25 RDW 13.8 % (11.9-15.9) 09/18/19 06:25 Plt Count 219 K/MM3 (134-434) 09/18/19 06:25 MPV 8.8 fl (7.5-11.1) 09/18/19 06:25 CMP Sodium 140 mmol/L (136-145) 09/18/19 06:25 Potassium 3.5 mmol/L (3.5-5.1) 09/18/19 06:25 Chloride 107 mmol/L (98-107) 09/18/19 06:25 Carbon Dioxide 28 mmol/L (21-32) 09/18/19 06:25 Anion Gap 5 MMOL/L (8-16) L 09/18/19 06:25 BUN 14.1 mg/dL (7-18) 09/18/19 06:25 Creatinine 0.8 mg/dL (0.55-1.3) 09/18/19 06:25 Random Glucose 69 mg/dL (74-106) L 09/18/19 06:25 Calcium 9.2 mg/dL (8.5-10.1) 09/18/19 06:25 Total Bilirubin 0.5 mg/dL (0.2-1) 09/18/19 06:25 AST 9 U/L (15-37) L 09/18/19 06:25 ALT 21 U/L (13-61) 09/18/19 06:25 Alkaline Phosphatase 84 U/L (45-117) 09/18/19 06:25 Total Protein 6.2 g/dl (6.4-8.2) L 09/18/19 06:25 Albumin 3.2 g/dl (3.4-5.0) L 09/18/19 06:25 CARDIAC ENZYMES Creatine Kinase 221 U/L (26-308) 09/17/19 15:00 Troponin I 0.05 ng/ml (0.00-0.05) 09/17/19 15:00 ASSESSMENT/PLAN: Patient is a 73 year old male with past medical history of HTN, HLD, IDDM, CAD on ASA/Plavix), multiple CVAs with residual RLE weakness and Right facial droop , presented to the ED due to sudden onset Right arm paralysis that started on day prior admission. Patient unsure what time exactly it happened. Patient was admitted in July 2019 for RLE weakness where he was treated for CVA. He was discharged home with a walker. Patient denied any recent illness, denied any trauma, denied headache, dizziness, fevers, chills, chest pain, SOB, abdominal pain, diarrhea, urinary symptoms. Head CT performed and demonstrated no acute pathology. Chronic left perinsular and frontoparietal infarcts. MRI of brain reviewed and showed acute left posterior frontal cortical and subcortical infarcts. MRA of brain also completed and demostrated Occlusion of left ICA. 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 Carotid ultrasound reviewed and demonstrated complete occlusion of left ICA, as mention before. Right arm ultrasound performed and showed no DVT. I informed him of the results. In conversation with patient, e indicated that he has not been taking aspirin and seemed to be confused that it is an [id number]-[id number] medication that does not require prescription. I discussed with him importance of antiplatelet medication compliance. With complete occlusion of the left internal carotid artery, not likely for surgical management and medical optimization required. Monitor blood pressure, maintain normotensive range, monitor lipid profile, remains on statin, LDL cancelled, consider rechecking. Physical therapy as tolerated, consider short-term rehabilitation. monitor diabetes, continue insulin. Medication compliance discussed again. His first choice is [facility] for rehabilitation, Per notes, he has been accepted to [facility], no objection to rehab which may provide benefit. Follow up case mgmt. Continue dual antiplatelet regimen, statin. Repeat LDL as outpatient, adjust statin to goal LDL of 70.
--- NOTE | 2019-09-22 14:51 | PN ---
Teaching Attending Note Name of Resident: Rocael Franklin ATTENDING PHYSICIAN STATEMENT I saw and evaluated the patient. I reviewed the resident's note and discussed the case with the resident. I agree with the resident's findings and plan as documented. Subjective: Patient examined at bedside, no new complaints, awaiting [facility] placement, VSS. Objective: PE GA comfortable, AAox3, speaking in full sentences HEENT NC/AT, R nasolabial fold flattening, R facial droop (chronic), MMM, neck supple, EOMI, MISAEL Chest CTAB, no crackles or wheezing CVS S1, S2+, RRR Abd Soft, NT, ND, BS+ Ext No LE edema, no calf tenderness Neuro 0/5 strength RUE, 5/5 LUE, sensation intact and equal UE bilaterally, good radial pulses b/l, 4/5 strength RLE, 5/5 strength LLE sensation intact and equal LE b/l Psych appropriate mood and affect, answers to questions Vital Signs - 24 hr 09/21/19 09/21/19 09/21/19 17:00 21:00 23:30 Temperature 98.1 F 97.6 F 97.7 F Pulse Rate 70 84 71 Respiratory 20 17 18 Rate Blood Pressure 138/79 143/92 158/88 O2 Sat by Pulse 97 95 Oximetry (%) 09/22/19 09:00 Temperature 97.8 F Pulse Rate 73 Respiratory 20 Rate Blood Pressure 155/94 O2 Sat by Pulse 96 Oximetry (%) Laboratory Results - last 24 hr 09/21/19 09/21/19 09/22/19 17:16 20:38 06:52 POC Glucometer 141 146 135 09/22/19 11:14 POC Glucometer 187 Home Medications Medication Instructions Recorded Aspirin [Aspirin EC] 1 tab PO DAILY 07/08/19 Clopidogrel Bisulfate [Clopidogrel] 1 tab PO DAILY 07/08/19 Losartan Potassium 1 tab PO DAILY 07/08/19 Metformin HCl [Glucophage] 500 mg PO BID 07/08/19 Amlodipine Besylate [Norvasc -] 10 mg PO DAILY 09/17/19 Sertraline HCl 25 mg PO DAILY 09/17/19 Current Medications Generic Name Dose Route Start Last Admin Trade Name Freq PRN Reason Stop Dose Admin Amlodipine Besylate 10 mg 09/22/19 10:00 09/22/19 09:32 Norvasc - PO 10 mg DAILY [facility] Administration Aspirin 81 mg 09/22/19 10:00 09/22/19 09:32 Ecotrin - PO 81 mg DAILY [facility] Administration Atorvastatin Calcium 80 mg 09/22/19 22:00 Lipitor - PO HS [facility] Clopidogrel Bisulfate 75 mg 09/22/19 10:00 09/22/19 09:32 Plavix - PO 75 mg DAILY [facility] Administration Docusate Sodium 100 mg 09/22/19 02:58 09/22/19 09:32 Colace - PO 100 mg DAILY [facility] Administration Enoxaparin Sodium 40 mg 09/22/19 10:00 09/22/19 09:33 Lovenox - SQ 40 mg DAILY [facility] Administration Gabapentin 300 mg 09/22/19 10:00 09/22/19 09:32 Neurontin - PO 300 mg BID [facility] Administration Insulin Aspart 1 vial 09/22/19 07:00 09/22/19 11:16 Novolog Vial Sliding Scale - SQ 2 units ACHS [facility] Administration Protocol Insulin Detemir 10 units 09/22/19 22:00 Levemir Vial SQ HS [facility] Polyethylene Glycol 17 gm 09/22/19 02:58 09/22/19 09:37 Miralax (For Daily Use) - PO 17 grams DAILY [facility] Administration Senna 1 tab 09/22/19 22:00 Senna - PO HS [facility] A/p: 73 AA male h/o multiple CVAs with chronic RLE weakness and R facial droop, HTN, HLD, IDDM, admitted for dense RUE paralysis. CT-brain not showing acute CVA, but MRI showing acute L posterior cortical and subcortical infarct, and MRA showing complete occlusion of L ICA. RUE dense paralysis Acute L posterior cortical and subcortical CVA on MRI, MRA showing L ICA occlusion Cont. secondary stroke protocol, ASA/Statin, cont. BP meds needs [facility] (probably [facility]) Cont. neurochecks, will obtain new Echo in view of NEW CVA continue tele for now Neurology consult: Dr Valentine HTN cont. BP meds IDDM ISS, basal insulin as needed strict glycemic management HLD high intensity statin optimize to titrate LDL <70 DVT ppx: Lovenox SC Cont. tele pending Echo DC to [facility] when cleared by [facility]
--- NOTE | 2019-09-22 16:05 | ECHO ---
Name: NADIYA, VERGIL Exam:Adult Echocardiogram Study Date: 09/22/2019 03:23 PM Age: 73 yrs Reason For Study: RADHA, r/o HF, wall abnormalities Height: 68 in Weight: 175 lb BSA: 1.9 m2 MMode/2D Measurements & Calculations IVSd: 1.8 cm Ao root diam: 3.4 cm LVIDd: 3.5 cm LA dimension: 3.3 cm LVIDs: 1.9 cm ACS: 2.2 cm LVPWd: 1.4 cm EDV(Teich): 51.6 ml LVOT diam: 2.0 cm ESV(Teich): 11.1 ml LAV (MOD-bp): 42.2 ml TAPSE: 3.0 cm RV S Shady: 18.4 cm/sec Doppler Measurements & Calculations MV E max shady: 59.7 cm/sec Ao V2 max: 124.9 cm/sec MV A max shady: 103.8 cm/sec Ao max P.2 mmHg MV E/A: 0.58 Ao V2 mean: 89.1 cm/sec MV dec time: 0.35 sec Ao mean P.5 mmHg Ao V2 VTI: 25.7 cm FELICITAS(I,D): 2.8 cm2 FELICITAS(V,D): 2.7 cm2 LV V1 max P.6 mmHg SV(LVOT): 72.8 ml LV V1 mean P.5 mmHg LV V1 max: 107.7 cm/sec LV V1 mean: 72.8 cm/sec LV V1 VTI: 22.8 cm PA V2 max: 105.9 cm/sec Med Peak E' Shady: 5.0 cm/sec PA max P.5 mmHg Med E/e': 11.9 PA acc time: 0.17 sec Lat Peak E' Shady: 9.5 cm/sec Lat E/e': 6.3 PA pr(Accel): 1.4 mmHg Left Ventricle The left ventricle is normal in size. There is moderate concentric left ventricular hypertrophy. Ejec tion Fraction = 65-70%. The transmitral spectral Doppler flow pattern is suggestive of impaired LV relaxat ion. Right Ventricle The right ventricle is normal size. The right ventricular systolic function is normal. Atria Normal left and right atrial size and function. Mitral Valve The mitral valve leaflets appear normal. There is no evidence of stenosis, fluttering, or prolapse. T here is no mitral regurgitation noted. Tricuspid Valve The tricuspid valve is normal. No tricuspid regurgitation. Aortic Valve There is mild aortic valve thickening. No hemodynamically significant valvular aortic stenosis. Pulmonic Valve The pulmonic valve is not well visualized. Great Vessels The aortic root is normal size. Interpretation Summary LV: Normal size, moderate-severe septal and moderatye posterior hypertrophy, borderline hyperdynamiv systolic function,EF 65-70%,impaired relaxation RV: Normal No significant valvular dysfunction Pericardium: Fat pad, cant exclude trivial effusion. Catherine Washington 09/22/2019 04:05 PM
[2019-09-22] MEDS ORDERED: INSULIN (NOVOLOG) ASPART 100 UNITS/ML 10ML VIAL ONE (20:06)
[2019-09-22] MEDS: INSULIN (LEVEMIR) 100 UNITS/ML UNITS SQ SCH (20:54)
[2019-09-22] MEDS: ATORVASTATIN CA 80 MG TABLET (FP) PO SCH (20:58)
[2019-09-22] MEDS: SENNOSIDES 8.6MG TABLET (FP) PO SCH (20:58)
[2019-09-23] MEDS: INSULIN (LEVEMIR) 100 UNITS/ML UNITS SQ SCH ×2 (00:24→21:41)
[2019-09-23] MEDS: SENNOSIDES 8.6MG TABLET (FP) PO SCH ×2 (00:25→21:43)
[2019-09-23] MEDS: GABAPENTIN 300 MG CAPSULE PO SCH ×3 (00:25→21:43)
[2019-09-23] MEDS: INSULIN SLIDING SCALE (NOVOLOG) 1 VIAL SQ SCH ×5 (00:25→21:39)
[2019-09-23] MEDS: ATORVASTATIN CA 80 MG TABLET (FP) PO SCH ×2 (00:25→21:42)
--- NOTE | 2019-09-23 08:45 | PN ---
Progress Note (short form) - Note Progress Note: Neurology CHIEF COMPLAINT: Right arm weakness HISTORY OF PRESENT ILLNESS: Patient is a 73 year old male with past medical history of HTN, HLD, IDDM, CAD on ASA/Plavix), multiple CVAs with residual RLE weakness and Right facial droop , presented to the ED due to sudden onset Right arm paralysis that started on day prior admission. Patient unsure what time exactly it happened. Patient was admitted in July 2019 for RLE weakness where he was treated for CVA. He was discharged home with a walker. Patient denied any recent illness, denied any trauma, denied headache, dizziness, fevers, chills, chest pain, SOB, abdominal pain, diarrhea, urinary symptoms. Head CT performed and demonstrated no acute pathology. Chronic left perinsular and frontoparietal infarcts. MRI of brain reviewed and showed acute left posterior frontal cortical and subcortical infarcts. MRA of brain also completed and demostrated Occlusion of left ICA. 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 Carotid ultrasound reviewed and demonstrated complete occlusion of left ICA, as mention before. Right arm ultrasound performed and showed no DVT. I informed him of the results. In conversation with patient, he indicated that he has not been taking aspirin and seemed to be confused that it is an [id number]-[id number] medication that does not require prescription. I discussed with him importance of antiplatelet medication compliance, again reiterated this today. With complete occlusion of the left internal carotid artery, not likely for surgical management and medical optimization required. Does show some improvement in RUE movement today , still at best 2+/5 but better than prior and speech improved as well. Awaiting placement. reviewed note from hospitalist, insurance process occurring for patients placement. His first choice is [facility] for rehabilitation. Per notes, he has been accepted to [facility], no objection to rehab which may provide benefit. Remains mmotivated to pursue short-term rehabilitation. Active Medications Amlodipine Besylate (Norvasc -) 10 mg PO DAILY [facility] Last Admin: 09/22/19 09:32 Dose: 10 mg Aspirin (Ecotrin -) 81 mg PO DAILY [facility] Last Admin: 09/22/19 09:32 Dose: 81 mg Atorvastatin Calcium (Lipitor -) 80 mg PO HS [facility] Last Admin: 09/23/19 00:25 Dose: Not Given Clopidogrel Bisulfate (Plavix -) 75 mg PO DAILY [facility] Last Admin: 09/22/19 09:32 Dose: 75 mg Docusate Sodium (Colace -) 100 mg PO DAILY [facility] Last Admin: 09/22/19 09:32 Dose: 100 mg Enoxaparin Sodium (Lovenox -) 40 mg SQ DAILY [facility] Last Admin: 09/22/19 09:33 Dose: 40 mg Gabapentin (Neurontin -) 300 mg PO BID [facility] Last Admin: 09/23/19 00:25 Dose: Not Given Insulin Aspart (Novolog Vial Sliding Scale -) 1 vial SQ [facility]; Protocol Last Admin: 09/23/19 06:32 Dose: Not Given Insulin Detemir (Levemir Vial) 10 units SQ [facility] Last Admin: 09/23/19 00:24 Dose: Not Given Polyethylene Glycol (Miralax (For Daily Use) -) 17 gm PO DAILY [facility] Last Admin: 09/22/19 09:37 Dose: 17 grams Senna (Senna -) 1 tab PO [facility] Last Admin: 09/23/19 00:25 Dose: Not Given PHYSICAL EXAMINATION Vital Signs Period Temp Pulse Resp BP Sys/Aguilar Pulse Ox Last 24 Hr 97.2 F-98.1 F 65-78 15-20 136-159/68-94 96-98 GENERAL: Awake, alert, and fully oriented, in no acute distress. HEAD: Normal with no signs of trauma. EYES: PERRLA, EOMI, sclera anicteric, conjunctiva clear. EARS, NOSE, THROAT: Dry mucous membranes. NECK: Normal range of motion, supple without lymphadenopathy, JVD, or masses. LUNGS: Breath sounds equal, clear to auscultation bilaterally. HEART: Regular rate and rhythm, normal S1 and S2 without murmur, rub or gallop. ABDOMEN: Soft, nontender, not distended, normoactive bowel sounds. MUSCULOSKELETAL: Normal passive ROM on all extremities UPPER EXTREMITIES: 2+ pulses, warm, well-perfused. No peripheral edema. LOWER EXTREMITIES: 2+ pulses, warm, well-perfused. No peripheral edema. NEUROLOGICAL: AAOx3, +Facial droop, Asymmetric smile, rest of CN grossly intact. Motor strength 3/5 on RUE, 5/5 LUE, 4/5 RLE, 5/5 LLE, sensation intact on all extremities. PSYCHIATRIC: Cooperative. Good eye contact. Appropriate mood and affect. SKIN: Warm, dry, normal turgor. CBCD WBC 5.2 K/mm3 (4.0-10.0) 09/18/19 06:25 RBC 4.74 M/mm3 (4.00-5.60) 09/18/19 06:25 Hgb 12.6 GM/dL (11.7-16.9) 09/18/19 06:25 Hct 37.5 % (35.4-49) 09/18/19 06:25 MCV 79.2 fl (80-96) L 09/18/19 06:25 MCHC 33.5 g/dl (32.0-35.9) 09/18/19 06:25 RDW 13.8 % (11.9-15.9) 09/18/19 06:25 Plt Count 219 K/MM3 (134-434) 09/18/19 06:25 MPV 8.8 fl (7.5-11.1) 09/18/19 06:25 CMP Sodium 140 mmol/L (136-145) 09/18/19 06:25 Potassium 3.5 mmol/L (3.5-5.1) 09/18/19 06:25 Chloride 107 mmol/L (98-107) 09/18/19 06:25 Carbon Dioxide 28 mmol/L (21-32) 09/18/19 06:25 Anion Gap 5 MMOL/L (8-16) L 09/18/19 06:25 BUN 14.1 mg/dL (7-18) 09/18/19 06:25 Creatinine 0.8 mg/dL (0.55-1.3) 09/18/19 06:25 Random Glucose 69 mg/dL (74-106) L 09/18/19 06:25 Calcium 9.2 mg/dL (8.5-10.1) 09/18/19 06:25 Total Bilirubin 0.5 mg/dL (0.2-1) 09/18/19 06:25 AST 9 U/L (15-37) L 09/18/19 06:25 ALT 21 U/L (13-61) 09/18/19 06:25 Alkaline Phosphatase 84 U/L (45-117) 09/18/19 06:25 Total Protein 6.2 g/dl (6.4-8.2) L 09/18/19 06:25 Albumin 3.2 g/dl (3.4-5.0) L 09/18/19 06:25 CARDIAC ENZYMES Creatine Kinase 221 U/L (26-308) 09/17/19 15:00 Troponin I 0.05 ng/ml (0.00-0.05) 09/17/19 15:00 ASSESSMENT/PLAN: Patient is a 73 year old male with past medical history of HTN, HLD, IDDM, CAD on ASA/Plavix), multiple CVAs with residual RLE weakness and Right facial droop , presented to the ED due to sudden onset Right arm paralysis that started on day prior admission. Patient unsure what time exactly it happened. Patient was admitted in July 2019 for RLE weakness where he was treated for CVA. He was discharged home with a walker. Patient denied any recent illness, denied any trauma, denied headache, dizziness, fevers, chills, chest pain, SOB, abdominal pain, diarrhea, urinary symptoms. Head CT performed and demonstrated no acute pathology. Chronic left perinsular and frontoparietal infarcts. MRI of brain reviewed and showed acute left posterior frontal cortical and subcortical infarcts. MRA of brain also completed and demostrated Occlusion of left ICA. 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 Carotid ultrasound reviewed and demonstrated complete occlusion of left ICA, as mention before. Right arm ultrasound performed and showed no DVT. I informed him of the results. In conversation with patient, e indicated that he has not been taking aspirin and seemed to be confused that it is an [id number]-[id number] medication that does not require prescription. I discussed with him importance of antiplatelet medication compliance. With complete occlusion of the left internal carotid artery, not likely for surgical management and medical optimization required. Monitor blood pressure, maintain normotensive range, monitor lipid profile, remains on statin, LDL cancelled, consider rechecking. Physical therapy as tolerated, consider short-term rehabilitation. monitor diabetes, continue insulin. Medication compliance discussed again. His first choice is [facility] for rehabilitation, Per notes, he has been accepted to [facility], no objection to rehab which may provide benefit. Remains mmotivated to pursue short-term rehabilitation. Follow up case mgmt. Continue dual antiplatelet regimen, statin. Repeat LDL as outpatient, adjust statin to goal LDL of 70.
--- NOTE | 2019-09-23 09:21 | PN ---
Teaching Attending Note Name of Resident: Rocael Franklin ATTENDING PHYSICIAN STATEMENT I saw and evaluated the patient. I reviewed the resident's note and discussed the case with the resident. I agree with the resident's findings and plan as documented. SUBJECTIVE: OBJECTIVE: Vital Signs Temperature 97.8 F 09/23/19 02:10 Pulse Rate 72 09/23/19 02:10 Respiratory Rate 20 09/23/19 02:10 Blood Pressure 145/90 09/23/19 02:10 O2 Sat by Pulse Oximetry (%) 98 09/22/19 21:00 General: Elderly man, comfortable, not in distress HEENT; mucous membranes moist, no anemia, no jaundice, PERRLA, no nystagmus Neck: No JVD, supple, no bruit, thyroid palpably normal, normal carotid pulsations. Chest: Nontender, clear to auscultation bilaterally/bilateral wheezing/ bilateral basal rales. CVS: S1-S2 regular/irregular no murmur/gallop/rub Abdomen: Nondistended, soft, bowel sounds present. Extremities: No edema., No cough tenderness, pulses present DIRECTORY COMPILER: AO X3 , right upper extremity motor weakness , cranial nerves, speech, left upper extremity and bilateral lower extremities no gross motor sensory deficit CBC, BMP 09/18/19 06:25 09/18/19 06:25 Active Medications Amlodipine Besylate (Norvasc -) 10 mg PO DAILY [facility] Last Admin: 09/22/19 09:32 Dose: 10 mg Aspirin (Ecotrin -) 81 mg PO DAILY [facility] Last Admin: 09/22/19 09:32 Dose: 81 mg Atorvastatin Calcium (Lipitor -) 80 mg PO HS [facility] Last Admin: 09/23/19 00:25 Dose: Not Given Clopidogrel Bisulfate (Plavix -) 75 mg PO DAILY [facility] Last Admin: 09/22/19 09:32 Dose: 75 mg Docusate Sodium (Colace -) 100 mg PO DAILY [facility] Last Admin: 09/22/19 09:32 Dose: 100 mg Enoxaparin Sodium (Lovenox -) 40 mg SQ DAILY [facility] Last Admin: 09/22/19 09:33 Dose: 40 mg Gabapentin (Neurontin -) 300 mg PO BID [facility] Last Admin: 09/23/19 00:25 Dose: Not Given Insulin Aspart (Novolog Vial Sliding Scale -) 1 vial SQ [facility]; Protocol Last Admin: 09/23/19 06:32 Dose: Not Given Insulin Detemir (Levemir Vial) 10 units SQ HS [facility] Last Admin: 09/23/19 00:24 Dose: Not Given Polyethylene Glycol (Miralax (For Daily Use) -) 17 gm PO DAILY [facility] Last Admin: 09/22/19 09:37 Dose: 17 grams Senna (Senna -) 1 tab PO HS [facility] Last Admin: 09/23/19 00:25 Dose: Not Given ASSESSMENT AND PLAN:3 AA male h/o multiple CVAs with chronic RLE weakness and R facial droop, HTN, HLD, IDDM, admitted for dense RUE paralysis. CT-brain not showing acute CVA, but MRI showing acute L posterior frontal lobe cortical and subcortical infarct, and MRA showing complete occlusion of L ICA. Impression:, Acute right upper extremity stroke due to acute infarct of left posterior frontal lobe cortical and subcortical with complete occlusion of left ICA. Evaluated by neurology, underwent MRI MRA brain patient has new right upper full-thickness [facility] will be discharged home cleared by neurology to [facility]. Problem List - Problems (1) Hemiparesis, right Problems reviewed: Yes Code(s): G81.91 - HEMIPLEGIA, UNSPECIFIED AFFECTING RIGHT DOMINANT SIDE (2) Diabetes Code(s): E11.9 - TYPE 2 DIABETES MELLITUS WITHOUT COMPLICATIONS (3) Hyperlipidemia Code(s): E78.5 - HYPERLIPIDEMIA, UNSPECIFIED (4) Hypertension Code(s): I10 - ESSENTIAL (PRIMARY) HYPERTENSION
[2019-09-23] MEDS: ENOXAPARIN NA (PORCINE) 40 MG/0.4 ML DISP.SYRIN SQ SCH (10:03)
[2019-09-23] MEDS: CLOPIDOGREL BISULFATE 75 MG TABLET (FP) PO SCH (10:04)
[2019-09-23] MEDS: DOCUSATE SODIUM 100 MG CAPSULE (FP) PO SCH (10:04)
[2019-09-23] MEDS: ASPIRIN COATED 81 MG TABLET.EC PO SCH (10:04)
[2019-09-23] MEDS: amLODIPine BESYLATE 10 MG TABLET (FP) PO SCH (10:04)
[2019-09-23] MEDS: POLYETHYLENE GLYCOL 3350 119 GM BTL PO SCH (10:05)
[2019-09-23] MEDS ORDERED: INSULIN (NOVOLOG) ASPART 100 UNITS/ML 10ML VIAL ONE ×2 (11:32→17:34)
--- NOTE | 2019-09-23 12:02 | DS ---
Physical Examination Vital Signs: Vital Signs Temperature 97.9 F 09/23/19 09:39 Pulse Rate 73 09/23/19 09:39 Respiratory Rate 18 09/23/19 09:39 Blood Pressure 133/78 09/23/19 09:39 O2 Sat by Pulse Oximetry (%) 98 09/23/19 09:00 General: Elderly man, comfortable, not in distress HEENT; right-sided facial droop mucous membranes moist, no anemia, no jaundice, PERRLA, no nystagmus Neck: No JVD, supple, no bruit, thyroid palpably normal, normal carotid pulsations. Chest: Nontender, clear to auscultation bilaterally/bilateral wheezing/ bilateral basal rales. CVS: S1-S2 regular/irregular no murmur/gallop/rub Abdomen: Nondistended, soft, bowel sounds present. Extremities: No edema., No cough tenderness, pulses present REMELTER: AO X3 , right upper extremity motor weakness 0/5 , right UMN facial droop at rest cranial nerves are normal, speech normal, right lower extremity 4 x 5 left upper extremity and lower extremities 5 / 5 no gross motor sensory deficit Labs: CBC, BMP 09/18/19 06:25 09/18/19 06:25 EKG: Normal sinus rhythm [address]-T changes Echocardiogram: Normal ejection fraction, hypertrophy of septum and posterior wall Carotid Doppler: Near complete total occlusion of left internal carotid artery CT head: Multiple infarct MRI and MRA brain: Complete occlusion of left ICA, right frontal lobe posterior subcortical and cortical infarct, moderate stenosis of her ventral basilar artery Discharge Summary Problems reviewed: Yes Reason For Visit: RIGHT HEMIPARESIS Current Active Problems CVA (cerebral vascular accident) (Acute) Hemiparesis, right (Acute) Hospital Course: 73 year old male with past medical history of HTN, HLD, type 2 diabetes mellitus , CAD on ASA/Plavix), multiple CVAs with residual RLE weakness and Right facial droop, presented to the ED due to sudden onset Right arm paralysis that started on day prior admission. Patient unsure what time exactly it happened. Patient was admitted in July 2019 for RLE weakness where he was treated for CVA. He was discharged home with a walker. Patient denied any recent illness, denied any trauma, denied headache, dizziness, fevers, chills, chest pain, SOB, abdominal pain, diarrhea, urinary symptoms. Head CT performed and demonstrated no acute pathology. Chronic left perinsular and frontoparietal infarcts. MRI of brain reviewed and showed acute left posterior frontal cortical and subcortical infarcts. MRA of brain also completed and demostrated Occlusion of left ICA. 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 Carotid ultrasound reviewed and demonstrated complete occlusion of left ICA, as mention before. Right arm ultrasound performed and showed no DVT. I informed him of the results. In conversation with patient, e indicated that he has not been taking aspirin and seemed to be confused that it is an gilu-zgs-ekdieep medication that does not require prescription. I discussed with him importance of antiplatelet medication compliance. With complete occlusion of the left internal carotid artery, not likely for surgical management and medical optimization required. Monitor blood pressure, maintain normotensive range, monitor lipid profile, remains on statin, LDL cancelled, consider rechecking. Physical therapy as tolerated, consider short-term rehabilitation. monitor diabetes, continue insulin. Medication compliance discussed again. His first choice is [facility] for rehabilitation, Per notes, he has been accepted to [facility], no objection to rehab which may provide benefit. Remains motivated to pursue short-term rehabilitation. Follow up case mgmt. Continue dual antiplatelet regimen, statin. Repeat LDL as outpatient, adjust statin to goal LDL of 70. Condition: Stable - Instructions Diet, Activity, Other Instructions: Dysphasia diet, low-cholesterol low carbohydrate Disposition: [facility] - Home Medications Comprehensive Discharge Medication List: Ambulatory Orders Aspirin [Aspirin EC] 1 tab PO DAILY 07/08/19 Clopidogrel Bisulfate [Clopidogrel] 1 tab PO DAILY 07/08/19 Losartan Potassium 1 tab PO DAILY 07/08/19 Metformin HCl [Glucophage] 500 mg PO BID 07/08/19 Amlodipine Besylate [Norvasc -] 10 mg PO DAILY 09/17/19 Sertraline HCl 25 mg PO DAILY 09/17/19 Prescription Drug Monitoring Program (I-STOP) results: I-STOP reviewed and no issues identified
[2019-09-23] MEDS ORDERED: ACETAMINOPHEN 325 MG TABLET (FP) PO ONE (21:18)
[2019-09-24] MEDS: INSULIN SLIDING SCALE (NOVOLOG) 1 VIAL SQ SCH ×4 (06:44→21:08)
--- NOTE | 2019-09-24 09:05 | PN ---
Progress Note (short form) - Note Progress Note: Neurology CHIEF COMPLAINT: Right arm weakness HISTORY OF PRESENT ILLNESS: Patient is a 73 year old male with past medical history of HTN, HLD, IDDM, CAD on ASA/Plavix), multiple CVAs with residual RLE weakness and Right facial droop , presented to the ED due to sudden onset Right arm paralysis that started on day prior admission. Patient unsure what time exactly it happened. Patient was admitted in July 2019 for RLE weakness where he was treated for CVA. He was discharged home with a walker. Patient denied any recent illness, denied any trauma, denied headache, dizziness, fevers, chills, chest pain, SOB, abdominal pain, diarrhea, urinary symptoms. Head CT performed and demonstrated no acute pathology. Chronic left perinsular and frontoparietal infarcts. MRI of brain reviewed and showed acute left posterior frontal cortical and subcortical infarcts. MRA of brain also completed and demostrated Occlusion of left ICA. 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 Carotid ultrasound reviewed and demonstrated complete occlusion of left ICA, as mention before. Right arm ultrasound performed and showed no DVT. I informed him of the results. In conversation with patient, he indicated that he has not been taking aspirin and seemed to be confused that it is an [id number] medication that does not require prescription. I discussed with him importance of antiplatelet medication compliance, again reiterated this today. With complete occlusion of the left internal carotid artery, not likely for surgical management and medical optimization required. Does show some improvement in RUE movement today , still at best 2+/5 but better than prior and speech improved as well. Awaiting placement. reviewed note from hospitalist, insurance process occurring for patients placement. His first choice is [facility] for rehabilitation. Per notes, he has been accepted to [facility], no objection to rehab which may provide benefit. Remains mmotivated to pursue short-term rehabilitation, possibly for discharge today, patient remains neurologically stable. Active Medications Amlodipine Besylate (Norvasc -) 10 mg PO DAILY [facility] Last Admin: 09/22/19 09:32 Dose: 10 mg Aspirin (Ecotrin -) 81 mg PO DAILY [facility] Last Admin: 09/22/19 09:32 Dose: 81 mg Atorvastatin Calcium (Lipitor -) 80 mg PO HS [facility] Last Admin: 09/23/19 00:25 Dose: Not Given Clopidogrel Bisulfate (Plavix -) 75 mg PO DAILY [facility] Last Admin: 09/22/19 09:32 Dose: 75 mg Docusate Sodium (Colace -) 100 mg PO DAILY [facility] Last Admin: 09/22/19 09:32 Dose: 100 mg Enoxaparin Sodium (Lovenox -) 40 mg SQ DAILY [facility] Last Admin: 09/22/19 09:33 Dose: 40 mg Gabapentin (Neurontin -) 300 mg PO BID [facility] Last Admin: 09/23/19 00:25 Dose: Not Given Insulin Aspart (Novolog Vial Sliding Scale -) 1 vial SQ [facility]; Protocol Last Admin: 09/23/19 06:32 Dose: Not Given Insulin Detemir (Levemir Vial) 10 units SQ [facility] Last Admin: 09/23/19 00:24 Dose: Not Given Polyethylene Glycol (Miralax (For Daily Use) -) 17 gm PO DAILY [facility] Last Admin: 09/22/19 09:37 Dose: 17 grams Senna (Senna -) 1 tab PO [facility] Last Admin: 09/23/19 00:25 Dose: Not Given PHYSICAL EXAMINATION Vital Signs Period Temp Pulse Resp BP Sys/Aguilar Pulse Ox Last 24 Hr 97.2 F-98.1 F 65-78 15-20 136-159/68-94 96-98 GENERAL: Awake, alert, and fully oriented, in no acute distress. HEAD: Normal with no signs of trauma. EYES: PERRLA, EOMI, sclera anicteric, conjunctiva clear. EARS, NOSE, THROAT: Dry mucous membranes. NECK: Normal range of motion, supple without lymphadenopathy, JVD, or masses. LUNGS: Breath sounds equal, clear to auscultation bilaterally. HEART: Regular rate and rhythm, normal S1 and S2 without murmur, rub or gallop. ABDOMEN: Soft, nontender, not distended, normoactive bowel sounds. MUSCULOSKELETAL: Normal passive ROM on all extremities UPPER EXTREMITIES: 2+ pulses, warm, well-perfused. No peripheral edema. LOWER EXTREMITIES: 2+ pulses, warm, well-perfused. No peripheral edema. NEUROLOGICAL: AAOx3, +Facial droop, Asymmetric smile, rest of CN grossly intact. Motor strength 3/5 on RUE, 5/5 LUE, 4/5 RLE, 5/5 LLE, sensation intact on all extremities. PSYCHIATRIC: Cooperative. Good eye contact. Appropriate mood and affect. SKIN: Warm, dry, normal turgor. CBCD WBC 5.2 K/mm3 (4.0-10.0) 09/18/19 06:25 RBC 4.74 M/mm3 (4.00-5.60) 09/18/19 06:25 Hgb 12.6 GM/dL (11.7-16.9) 09/18/19 06:25 Hct 37.5 % (35.4-49) 09/18/19 06:25 MCV 79.2 fl (80-96) L 09/18/19 06:25 MCHC 33.5 g/dl (32.0-35.9) 09/18/19 06:25 RDW 13.8 % (11.9-15.9) 09/18/19 06:25 Plt Count 219 K/MM3 (134-434) 09/18/19 06:25 MPV 8.8 fl (7.5-11.1) 09/18/19 06:25 CMP Sodium 140 mmol/L (136-145) 09/18/19 06:25 Potassium 3.5 mmol/L (3.5-5.1) 09/18/19 06:25 Chloride 107 mmol/L (98-107) 09/18/19 06:25 Carbon Dioxide 28 mmol/L (21-32) 09/18/19 06:25 Anion Gap 5 MMOL/L (8-16) L 09/18/19 06:25 BUN 14.1 mg/dL (7-18) 09/18/19 06:25 Creatinine 0.8 mg/dL (0.55-1.3) 09/18/19 06:25 Random Glucose 69 mg/dL (74-106) L 09/18/19 06:25 Calcium 9.2 mg/dL (8.5-10.1) 09/18/19 06:25 Total Bilirubin 0.5 mg/dL (0.2-1) 09/18/19 06:25 AST 9 U/L (15-37) L 09/18/19 06:25 ALT 21 U/L (13-61) 09/18/19 06:25 Alkaline Phosphatase 84 U/L (45-117) 09/18/19 06:25 Total Protein 6.2 g/dl (6.4-8.2) L 09/18/19 06:25 Albumin 3.2 g/dl (3.4-5.0) L 09/18/19 06:25 CARDIAC ENZYMES Creatine Kinase 221 U/L (26-308) 09/17/19 15:00 Troponin I 0.05 ng/ml (0.00-0.05) 09/17/19 15:00 ASSESSMENT/PLAN: Patient is a 73 year old male with past medical history of HTN, HLD, IDDM, CAD on ASA/Plavix), multiple CVAs with residual RLE weakness and Right facial droop , presented to the ED due to sudden onset Right arm paralysis that started on day prior admission. Patient unsure what time exactly it happened. Patient was admitted in July 2019 for RLE weakness where he was treated for CVA. He was discharged home with a walker. Patient denied any recent illness, denied any trauma, denied headache, dizziness, fevers, chills, chest pain, SOB, abdominal pain, diarrhea, urinary symptoms. Head CT performed and demonstrated no acute pathology. Chronic left perinsular and frontoparietal infarcts. MRI of brain reviewed and showed acute left posterior frontal cortical and subcortical infarcts. MRA of brain also completed and demostrated Occlusion of left ICA. 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 Carotid ultrasound reviewed and demonstrated complete occlusion of left ICA, as mention before. Right arm ultrasound performed and showed no DVT. I informed him of the results. In conversation with patient, e indicated that he has not been taking aspirin and seemed to be confused that it is an [id number] medication that does not require prescription. I discussed with him importance of antiplatelet medication compliance. With complete occlusion of the left internal carotid artery, not likely for surgical management and medical optimization required. Monitor blood pressure, maintain normotensive range, monitor lipid profile, remains on statin, LDL cancelled, consider rechecking. Physical therapy as tolerated, consider short-term rehabilitation. monitor diabetes, continue insulin. Medication compliance discussed again. His first choice is [facility] for rehabilitation, Per notes, he has been accepted to [facility], no objection to rehab which may provide benefit. Remains mmotivated to pursue short-term rehabilitation. Possibly for discharge today, patient remains neurologically stable. Follow up case mgmt. Continue dual antiplatelet regimen, statin. Repeat LDL as outpatient, adjust statin to goal LDL of 70.
[2019-09-24] MEDS: POLYETHYLENE GLYCOL 3350 119 GM BTL PO SCH (09:34)
[2019-09-24] MEDS: CLOPIDOGREL BISULFATE 75 MG TABLET (FP) PO SCH (09:35)
[2019-09-24] MEDS: ASPIRIN COATED 81 MG TABLET.EC PO SCH (09:35)
[2019-09-24] MEDS: amLODIPine BESYLATE 10 MG TABLET (FP) PO SCH (09:35)
[2019-09-24] MEDS: ENOXAPARIN NA (PORCINE) 40 MG/0.4 ML DISP.SYRIN SQ SCH (09:35)
[2019-09-24] MEDS: GABAPENTIN 300 MG CAPSULE PO SCH ×2 (09:35→21:05)
[2019-09-24] MEDS: DOCUSATE SODIUM 100 MG CAPSULE (FP) PO SCH (09:35)
--- NOTE | 2019-09-24 10:10 | PN ---
Progress Note, Physician Chief Complaint: Patient remained at baseline History of Present Illness: Acute right upper extremity stroke due to acute infarct of left posterior frontal lobe cortical and subcortical with complete occlusion of left ICA. Evaluated by neurology, underwent MRI MRA brain patient has new right upper full -thickness accepted at [facility] for physical therapy will be discharged home cleared by neurology to DC to acute rehab - Current Medication List Current Medications: Active Medications Amlodipine Besylate (Norvasc -) 10 mg PO DAILY [facility] Last Admin: 09/24/19 09:35 Dose: 10 mg Aspirin (Ecotrin -) 81 mg PO DAILY [facility] Last Admin: 09/24/19 09:35 Dose: 81 mg Atorvastatin Calcium (Lipitor -) 80 mg PO HS [facility] Last Admin: 09/23/19 21:42 Dose: 80 mg Clopidogrel Bisulfate (Plavix -) 75 mg PO DAILY [facility] Last Admin: 09/24/19 09:35 Dose: 75 mg Docusate Sodium (Colace -) 100 mg PO DAILY [facility] Last Admin: 09/24/19 09:35 Dose: 100 mg Enoxaparin Sodium (Lovenox -) 40 mg SQ DAILY [facility] Last Admin: 09/24/19 09:35 Dose: 40 mg Gabapentin (Neurontin -) 300 mg PO BID [facility] Last Admin: 09/24/19 09:35 Dose: 300 mg Insulin Aspart (Novolog Vial Sliding Scale -) 1 vial SQ [facility]; Protocol Last Admin: 09/24/19 06:44 Dose: Not Given Insulin Detemir (Levemir Vial) 10 units SQ [facility] Last Admin: 09/23/19 21:41 Dose: 10 units Polyethylene Glycol (Miralax (For Daily Use) -) 17 gm PO DAILY [facility] Last Admin: 09/24/19 09:34 Dose: 17 grams Senna (Senna -) 1 tab PO [facility] Last Admin: 09/23/19 21:43 Dose: 1 tab - Objective Vital Signs: Vital Signs Temperature 97.6 F 09/24/19 09:33 Pulse Rate 76 09/24/19 09:33 Respiratory Rate 18 09/24/19 09:33 Blood Pressure 161/83 09/24/19 09:33 O2 Sat by Pulse Oximetry (%) 96 09/23/19 20:55 General: Elderly man, comfortable, not in distress HEENT; right-sided facial droop mucous membranes moist, no anemia, no jaundice, PERRLA, no nystagmus Neck: No JVD, supple, no bruit, thyroid palpably normal, normal carotid pulsations. Chest: Nontender, clear to auscultation bilaterally/bilateral wheezing/ bilateral basal rales. CVS: S1-S2 regular/irregular no murmur/gallop/rub Abdomen: Nondistended, soft, bowel sounds present. 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 Problem List - Problems (1) Hemiparesis, right Assessment/Plan: Patient is a second stroke, left ICA stenosis continue high-dose statin is optimize BP control glycemic control patient has right upper extremity monoparesis scheduled for transfer to [place]. Problems reviewed: Yes Code(s): G81.91 - HEMIPLEGIA, UNSPECIFIED AFFECTING RIGHT DOMINANT SIDE (2) Diabetes Assessment/Plan: Continue Lantus optimize glycemic control Problems reviewed: Yes Code(s): E11.9 - TYPE 2 DIABETES MELLITUS WITHOUT COMPLICATIONS (3) Hyperlipidemia Assessment/Plan: Continue statin Problems reviewed: Yes Code(s): E78.5 - HYPERLIPIDEMIA, UNSPECIFIED (4) Hypertension Assessment/Plan: Well-controlled on current meds Problems reviewed: Yes Code(s): I10 - ESSENTIAL (PRIMARY) HYPERTENSION
[2019-09-24] MEDS ORDERED: INSULIN (NOVOLOG) ASPART 100 UNITS/ML 10ML VIAL ONE (11:40)
[2019-09-24] MEDS: SENNOSIDES 8.6MG TABLET (FP) PO SCH (21:05)
[2019-09-24] MEDS: ATORVASTATIN CA 80 MG TABLET (FP) PO SCH (21:05)
[2019-09-24] MEDS: INSULIN (LEVEMIR) 100 UNITS/ML UNITS SQ SCH (21:05)
[2019-09-25] MEDS: INSULIN SLIDING SCALE (NOVOLOG) 1 VIAL SQ SCH ×2 (06:17→15:51)
--- NOTE | 2019-09-25 09:58 | PN ---
Progress Note, Physician Chief Complaint: Patient remained at baseline patient is stable to be discharged to a subacute rehabilitation awaiting bed assignment History of Present Illness: Acute right upper extremity stroke due to acute infarct of left posterior frontal lobe cortical and subcortical with complete occlusion of left ICA. Evaluated by neurology, underwent MRI MRA brain patient has new right upper full -thickness accepted [facility] will be discharged home cleared by neurology to DC to acute rehab - Current Medication List Current Medications: Active Medications Amlodipine Besylate (Norvasc -) 10 mg PO DAILY [facility] Last Admin: 09/24/19 09:35 Dose: 10 mg Aspirin (Ecotrin -) 81 mg PO DAILY [facility] Last Admin: 09/24/19 09:35 Dose: 81 mg Atorvastatin Calcium (Lipitor -) 80 mg PO HS [facility] Last Admin: 09/24/19 21:05 Dose: 80 mg Clopidogrel Bisulfate (Plavix -) 75 mg PO DAILY [facility] Last Admin: 09/24/19 09:35 Dose: 75 mg Docusate Sodium (Colace -) 100 mg PO DAILY [facility] Last Admin: 09/24/19 09:35 Dose: 100 mg Enoxaparin Sodium (Lovenox -) 40 mg SQ DAILY [facility] Last Admin: 09/24/19 09:35 Dose: 40 mg Gabapentin (Neurontin -) 300 mg PO BID [facility] Last Admin: 09/24/19 21:05 Dose: 300 mg Insulin Aspart (Novolog Vial Sliding Scale -) 1 vial SQ [facility]; Protocol Last Admin: 09/25/19 06:17 Dose: Not Given Insulin Detemir (Levemir Vial) 10 units SQ [facility] Last Admin: 09/24/19 21:05 Dose: 10 units Polyethylene Glycol (Miralax (For Daily Use) -) 17 gm PO DAILY [facility] Last Admin: 09/24/19 09:34 Dose: 17 grams Senna (Senna -) 1 tab PO [facility] Last Admin: 09/24/19 21:05 Dose: 1 tab - Objective Vital Signs: Vital Signs Temperature 97.6 F 09/25/19 06:31 Pulse Rate 67 09/25/19 06:31 Respiratory Rate 20 09/25/19 06:31 Blood Pressure 142/70 09/25/19 06:31 O2 Sat by Pulse Oximetry (%) 94 L 09/24/19 21:00 General: Elderly man, comfortable, not in distress HEENT; right-sided facial droop mucous membranes moist, no anemia, no jaundice, PERRLA, no nystagmus Neck: No JVD, supple, no bruit, thyroid palpably normal, normal carotid pulsations. Chest: Nontender, clear to auscultation bilaterally/bilateral wheezing/ bilateral basal rales. CVS: S1-S2 regular/irregular no murmur/gallop/rub Abdomen: Nondistended, soft, bowel sounds present. 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 Code(s): G81.91 - HEMIPLEGIA, UNSPECIFIED AFFECTING RIGHT DOMINANT SIDE (2) Diabetes Assessment/Plan: Continue Lantus optimize glycemic control Code(s): E11.9 - TYPE 2 DIABETES MELLITUS WITHOUT COMPLICATIONS (3) Hyperlipidemia Assessment/Plan: Continue statin Code(s): E78.5 - HYPERLIPIDEMIA, UNSPECIFIED (4) Hypertension Assessment/Plan: Well-controlled on current meds Code(s): I10 - ESSENTIAL (PRIMARY) HYPERTENSION
[2019-09-25] MEDS: DOCUSATE SODIUM 100 MG CAPSULE (FP) PO SCH (10:06)
[2019-09-25] MEDS: GABAPENTIN 300 MG CAPSULE PO SCH (10:06)
[2019-09-25] MEDS: amLODIPine BESYLATE 10 MG TABLET (FP) PO SCH (10:06)
[2019-09-25] MEDS: CLOPIDOGREL BISULFATE 75 MG TABLET (FP) PO SCH (10:07)
[2019-09-25] MEDS: ASPIRIN COATED 81 MG TABLET.EC PO SCH (10:07)
[2019-09-25] MEDS: ENOXAPARIN NA (PORCINE) 40 MG/0.4 ML DISP.SYRIN SQ SCH (10:07)
[2019-09-25] MEDS: POLYETHYLENE GLYCOL 3350 119 GM BTL PO SCH (10:08)
[2019-09-25 15:53] LABS: BASO % 0.4 % (0-2.0); HEMATOCRIT 38.1 % (35.4-49); HEMOGLOBIN 12.8 GM/dL (11.7-16.9); LYMPH % 33.1 % (8-40); MCH 26.8 pg (25.7-33.7); MCHC 33.7 g/dl (32.0-35.9); MEAN CELL VOLUME 79.4 fl (80-96); MEAN PLT VOLUME 8.5 fl (7.5-11.1); MONO % 7.9 % (3.8-10.2); NEUT % 53.6 % (42.8-82.8); PLATELET COUNT 240 K/MM3 (134-434)
[2019-09-25 16:18] LABS: BLOOD UREA NITROGEN 15.1 mg/dL (7-18); CALCIUM 9.3 mg/dL (8.5-10.1); CREATININE 0.9 mg/dL (0.55-1.3); POTASSIUM 3.8 mmol/L (3.5-5.1)
[2019-09-25 17:26] VITALS: BP 152/77; PULSE 77; TEMP 97.8
[2019-09-25 19:08] VITALS: BMI 26.8
== END 2019-09-25 20:00 | DRG 65 ==
LOC: JER 13:16 → JERBED 15:14 → J4W 09-18 11:34 → J8W 09-21 22:57
PROVIDERS: ATTEND Internal Medicine
DX: I63.232 Cerebral infarction due to unspecified occlusion or stenosis of left carotid arteries (principal); I69.351 Hemiplegia and hemiparesis following cerebral infarction affecting right dominant side; I10 Essential (primary) hypertension; E11.9 Type 2 diabetes mellitus without complications; R29.707 NIHSS score 7; I25.10 Atherosclerotic heart disease of native coronary artery without angina pectoris; Z79.4 Long term (current) use of insulin; Z91.14 Patient's other noncompliance with medication regimen
CPT/HCPCS: 36415; 70450-TC; 70544-TC; 70551-TC; 80048; 80053; 80061; 82550; 82553; 82607; 82962; 83036; 83721; 83735; 84100; 84443; 84484; 85025; 85610; 85651; 85730; 86140; 93005; 93010; 93306-TC; 93880-TC; 93971; 97116-GP; 97162-GP; 99285-25